=== PATIENT | female | born 1980 | race Caucasian/White ===

== ENCOUNTER → 2016-07-04 | Outpatient (CLI) | payer MEDICARE, OTHER ==
[2016-07-04 13:55] VITALS: BP 136/71; PULSE 90; RESP 18; TEMP 97.8; BMI 68.8
[2016-07-04 16:47] LABS: CH 27.5; CHCM 32.1; EKG EKG PERFORMED; HCT 41.7 % (34.0-46.0); HDW 2.76; HGB 13.2 gm/dL (11.4-16.0); MCH 27.3 pg (25.0-35.0); MCHC 31.6 g/dL (31.0-37.0); MCV 86.3 fL (80.0-100.0); Mean Platelet Volume 7.9; RBC 4.83 m/uL (3.80-5.40); RDW 14.2 % (11.5-15.5); WBC 4.2 k/uL (3.8-10.6)
[2016-07-04 17:18] LABS: ALT 60 U/L (9-52); AST 54 U/L (14-36); Alkaline Phosphatase 111 U/L (38-126); Anion Gap 8 mmol/L; Blood Urea Nitrogen 12 mg/dL (7-17); Calcium 9.3 mg/dL (8.4-10.2); Carbon Dioxide 29 mmol/L (22-30); Chloride 102 mmol/L (98-107); Cholesterol 136 mg/dL (<200); Glucose 107 mg/dL (74-99); HDL Cholesterol 34 mg/dL (40-60); Iron 66 ug/dL (37-170); Non-African American GFR(MDRD) >60 (>60 ml/min/1.73 sqM); Potassium 4.8 mmol/L (3.5-5.1); Sodium 139 mmol/L (137-145); Total Bilirubin 0.4 mg/dL (0.2-1.3); Total Protein 6.7 g/dL (6.3-8.2); Triglycerides 172 mg/dL (<150)
[2016-07-04 17:29] LABS: Total Iron Binding Capacity 315 ug/dL (265-497)
[2016-07-04 18:28] LABS: Vitamin B12 442 pg/mL (239-931)
[2016-07-04 21:26] LABS: Hemoglobin A1C 6.3 % (4.2-6.1)
--- NOTE | 2016-07-22 16:45 | P.PN ---
Progress Note - Text DATE OF CONSULTATION: DATE OF SERVICE: 07/04/2016 CHIEF COMPLAINT: Initial bariatric assessment. HISTORY OF PRESENT ILLNESS: Talha Crawford is a 35-year-old female who presents initially to the bariatric program. At a height of 4 feet 10-3/4 inches, her highest weight was 350 pounds. Her body mass index was 71.4. Today she comes in weighing 337 pounds. Her body mass index is now down to 68.8. Separately, she reports trying medical supervised weight loss as well as [employer], Effie Lorenzo, Weight Watchers, [employer] as well as going to the [facility] and caloric restriction with minimal success. Her lowest memorable weight has been at least at 250 pound. Her personal goal is to get down to 120 pounds. She reports osteoarthritis of the lower back. She also reports osteoarthritis of the bilateral knees. She has difficulty with walking as she has a moderate size pannus which extends below both her knees. She has obstructive sleep apnea for which she uses a CPAP machine. She has a family history of morbid obesity as well as diabetes. Her dietary intake includes having breakfast and bagels in the morning. Her calories are well over 2000 to 3000 calories daily. Her main reason for changing her dietary history including achieving weight loss is for her children who are toddler size. She reports having a previous cholecystectomy and denies any active history of diarrhea, constipation. At present, she is looking into gastrectomy-type procedures between a sleeve and Dat-en-Y gastric bypass, specifically the gastric bypass. PAST MEDICAL HISTORY: 1. Morbid obesity. 2. Obstructive sleep apnea. 3. Osteoarthritis of the lower back. 4. Osteoarthritis of the bilateral knees. 5. Panniculitis. PAST SURGICAL HISTORY: 1. Cholecystectomy. 2. section. MEDICATIONS: 1. Ultram. 2. Augmentin. 3. Elavil. ALLERGIES: Denies. SOCIAL HISTORY: Lifelong nontobacco user. FAMILY HISTORY: Pertinent for morbid obesity. She denies any Crohn's disease or ulcerative colitis. Also has diabetes in her family. REVIEW OF SYSTEMS: CONSTITUTIONAL: [place] body weight of 118 pounds for 4-foot, 10-3/4-inch frame. Highest weight is 350 pounds. Initial body mass index was 71.4. Present body mass index of 68.8. She is 219 pounds overweight. HEENT: Denies any troubles with vision, hearing or dysphagia. ENDOCRINE: No report of diabetes or thyroid disorder. RESPIRATORY: Denies any recent dyspnea on exertion; however, she does have obstructive sleep apnea and uses CPAP machine. CARDIOVASCULAR: No reports of chest pain or heart attack. GASTROINTESTINAL: Denies any gastroesophageal reflux disease. Her gallbladder is removed. MUSCULOSKELETAL: Has osteoarthritis of the lower back with her large size pannus. Also reports bilateral knee osteoarthritis. NEURO: No reports of stroke or seizure disorders. PSYCH: Denies depression or suicidal ideation. HEMATOLOGIC: Denies any easy bruising or bleeding. PHYSICAL EXAM: VITAL SIGNS: 97.8, 90, 18, 136/71, 4 feet 10-3/4 inches, 337 pounds, body mass index of 68.8. GENERAL: Well-developed, pleasant female in no acute distress. HEENT: No scleral icterus. Extraocular movements grossly intact. Moist buccal mucosa. NECK: Supple without lymphadenopathy. CHEST: Nonlabored respirations with equal bilateral excursions. CARDIOVASCULAR: Regular rate and rhythm. ABDOMEN: Protuberant with pannus extending beyond the knees. Size of pannus easily weighs over 70+ pounds. MUSCULOSKELETAL: No clubbing, cyanosis. 1+ bilateral pitting edema. NEURO: No focal or lateralizing signs. Cranial nerves 2 through 12 grossly within normal limits. PSYCH: Appropriate affect. Alert and oriented to person, place, and time. SKIN: Moderate panniculitis with pannus of over 70+ pounds extending beyond the knees. Patient presents with also with round apple shape. Hyperpigmentation noted along the skin fold extended along the medial upper thighs. LABS: Hemoglobin normal at 13.2. Glucose elevated at 107. Hemoglobin A1c is elevated at 6.3. Ferritin elevated at 153. AST elevated at 64. ALT elevated at 60. Triglycerides elevated at 172. Cholesterol normal at 136. HDL low at 34. EKG was performed, results still pending. ASSESSMENT: 1. Morbid obesity due to excess calories. 2. Body mass index initially of 71.4 down and 68.8. 3. Obstructive sleep apnea, moderate. 4. Glucose intolerance and diabetes. 5. Elevated AST, ALT. 6. Fatty liver disease. 7. Hypertriglyceridemia. 8. Osteoarthritis of the lower back. 9. Osteoarthritis of the bilateral knees. 10. Likely food addiction. PLAN: 1. I have gone over all bariatric options between a band, a sleeve including a Dat-en-Y gastric bypass. [place] bariatric surgery surgery collaborative outcomes calculator of anticipated weight loss was reviewed for each procedure. Additionally risk factors or complications were also reviewed. The patient has selected for Dat-en-Y gastric bypass. 2. Given the moderate size of her pannus including panniculitis, I have discussed with her the technical difficulty. I may possibly perform her gastric bypass for which additional weight loss is requested. The patient had agreed to try to achieve at least 60-pound weight loss. Strict medical supervised weight loss including with bariatric dietitian referral was reviewed. 3. Recommend 12-lead EKG as high risk operation. 4. Recommend medical risk assessment. 5. Also recommend a psych assessment as the patient demonstrates potential habits of food addiction as well as food binging disorder. 6. Recommend upper endoscopy as she is looking into gastrectomy-type procedure. Gastritis and hiatal hernia cannot be excluded. 7. On her laboratory work, she has come back as diabetic for which surgical intervention with a gastrectomy-type procedure including weight loss may be of benefit. 8. She does have elevated liver enzymes, which is highly suspicious for fatty liver disease, which will be closely monitored and addressed also with a high protein, low caloric diet. Thank you for this kind consultation.
== END | disposition home or self-care (01) ==
LOC: BARWHC3 13:21
PROVIDERS: ATTEND Surgery Plastic and Reconstructive Surgery
DX: Z01.818 Encounter for other preprocedural examination (principal); E66.01 Morbid (severe) obesity due to excess calories; Z68.44 Body mass index [BMI] 60.0-69.9, adult; G47.33 Obstructive sleep apnea (adult) (pediatric); E74.39 Other disorders of intestinal carbohydrate absorption; E11.9 Type 2 diabetes mellitus without complications; K76.0 Fatty (change of) liver, not elsewhere classified; E78.1 Pure hyperglyceridemia; M47.896 Other spondylosis, lumbar region; M17.0 Bilateral primary osteoarthritis of knee; R79.89 Other specified abnormal findings of blood chemistry
CPT/HCPCS: 84425; 80061; 80053; 82607; 82728; 83036; 82746; 83540; 83550; 84443; 85027; 82306; 97802; 93005; 36415; G0463; 99201

== ENCOUNTER 2016-08-08 08:00 | Day surgery (SDC) | payer MEDICARE, OTHER ==
[2016-08-06 08:45] VITALS: BMI 68.6
--- NOTE | 2016-08-08 07:33 | P.GSHP ---
History of Present Illness H&P Date: 08/08/16 CHIEF COMPLAINT: GERD HISTORY OF PRESENT ILLNESS: The patient is a 36-year-old female who presents reports gastroesophageal reflux disease. Upper endoscopy was offered for further evaluation and management. PAST MEDICAL HISTORY: Please see list. PAST SURGICAL HISTORY: Please see list. MEDICATIONS: Please see list. ALLERGIES: Please see list. SOCIAL HISTORY: No illicit drug use FAMILY HISTORY: No reports of Crohn disease or ulcerative colitis. REVIEW OF ORGAN SYSTEMS: CONSTITUTIONAL: No reports of fevers or chills. GI: Denies any blood in stools or constipation. PHYSICAL EXAM: VITAL SIGNS: Stable GENERAL: Well-developed and pleasant in no acute distress. HEENT: No scleral icterus. Extraocular movements grossly intact. Moist buccal mucosa. NECK: Supple without lymphadenopathy. CHEST: Unlabored respirations. Equal bilateral excursions. CARDIOVASCULAR: Regular rate and rhythm. Distal 2+ pulses. ABDOMEN: Soft, nondistended. MUSCULOSKELETAL: No clubbing, cyanosis, or edema. ASSESSMENT: 1. Gastroesophageal reflux disease PLAN: 1. Recommend proceeding with an upper endoscopy Past Medical History Past Medical History: GERD/Reflux, Musculoskeletal Disorder, Osteoarthritis (OA) , Seizure Disorder Additional Past Medical History / Comment(s): hx. of seizures as a child-none in years, chronic back & joint pain, currently being treated for UTI History of Any Multi-Drug Resistant Organisms: None Reported Past Surgical History: Section, Cholecystectomy, Tubal Ligation Past Anesthesia/Blood Transfusion Reactions: No Reported Reaction Past Psychological History: No Psychological Hx Reported Smoking Status: Never smoker Past Alcohol Use History: None Reported Past Drug Use History: None Reported - Past Family History Mother Family Medical History: No Reported History Medications and Allergies Home Medications Medication Instructions Recorded Confirmed Type Amitriptyline HCl [Elavil] 25 mg PO HS 07/03/16 08/06/16 History traMADol HCL [Ultram] 50 mg PO QID 07/03/16 08/06/16 History Diclofenac Sodium [Voltaren] 75 mg PO BID 08/06/16 08/06/16 History Nitrofurantoin Monohyd/M-Cryst 100 mg PO Q12HR 08/06/16 08/06/16 History [Macrobid] Allergies Allergy/AdvReac Type Severity Reaction Status Date / Time No Known Allergies Allergy Verified 08/06/16 08:42
[~2016-08-08 08:00] MED LIST: LACTATED RINGERS 1,000 ML IV SCH; LIDOCAINE 1% 20 ML VIAL (10MG/ML) FOR IV START INTRADERMA PRN
[2016-08-08 08:23] VITALS: RESP 20; TEMP 98.6
[2016-08-08] MEDS ORDERED: PROPOFOL 10 MG/ML 20 ML VIAL IV ONE (08:34)
--- NOTE | 2016-08-08 08:49 | P.PCN ---
Date of Procedure: 08/08/16 Description of Procedure: PREOPERATIVE DIAGNOSIS: Gastroesophageal reflux disease. Morbid obesity. Body mass index 68.7. Obstructive sleep apnea. POSTOPERATIVE DIAGNOSIS: Gastroesophageal reflux disease. Morbid obesity. Body mass index 68.7. Obstructive sleep apnea. Diaphragmatic hiatal hernia. Superficial chronic gastritis. OPERATION: Esophagogastroduodenoscopy with biopsies along antrum. SURGEON: Melanie Presley MD ANESTHESIA: MAC. INDICATIONS: The patient is a 36-year-old female who presents with a history of reflux disease. Benefits and risks of the procedure were described. Informed consent was obtained. DESCRIPTION: The patient was brought into the endoscopy suite and laid in the left lateral decubitus position. An Olympus gastroscope was passed along the posterior oropharynx down to the distal esophagus where the squamocolumnar junction was encountered at 35 cm from the incisors. The stomach was entered and moderate bile reflux was found. Additional findings are listed below. Biopsies with cold forceps were obtained of the antrum. The first through third portion of the duodenum was examined and unremarkable. Retroflexion of the scope confirmed Hill grade 3 lower esophageal valve. The squamocolumnar junction demostrated LA grade B erosive esophagitis. The stomach was desufflated. The patient tolerated the procedure well. FINDINGS: Squamocolumnar junction 35 cm from the incisors. Diaphragmatic hiatus at 37 cm from the incisors. Hiatal hernia, 2 cm, sliding type. Hill grade 3 lower esophageal valve. LA grade B erosive esophagitis. No active duodenitis. Chronic gastritis. RECOMMENDATIONS: Further recommendations pending results of pathology report. Upper endoscopy as needed.
[2016-08-08 09:11] VITALS: BP 152/90; PULSE 89
== END 2016-08-08 09:29 | disposition home or self-care (01) ==
LOC: ORWHC2ENDO 08:00
PROVIDERS: ATTEND Surgery Plastic and Reconstructive Surgery
DX: K22.10 Ulcer of esophagus without bleeding (principal); K29.50 Unspecified chronic gastritis without bleeding; K21.9 Gastro-esophageal reflux disease without esophagitis; K44.9 Diaphragmatic hernia without obstruction or gangrene; M19.90 Unspecified osteoarthritis, unspecified site; E66.01 Morbid (severe) obesity due to excess calories; Z68.44 Body mass index [BMI] 60.0-69.9, adult; G47.33 Obstructive sleep apnea (adult) (pediatric); Z79.891 Long term (current) use of opiate analgesic; Z79.899 Other long term (current) drug therapy
CPT/HCPCS: 81025; 88305; 88342; 43239; J2704; 97803; 99211

== ENCOUNTER → 2016-08-08 | Outpatient (CLI) | payer MEDICARE, OTHER ==
[2016-08-08 15:00] VITALS: BP 138/100; PULSE 107; RESP 14; TEMP 97.9; BMI 68.1
--- NOTE | 2016-09-16 19:56 | P.PN ---
Progress Note - Text DATE OF SERVICE: 08/08/2016 CHIEF COMPLAINT: Follow up bariatric assessment. HISTORY OF PRESENT ILLNESS: Talha Crawford is a 36-year-old female who initially presented to the program in June 2006. She reports a height of 4 feet 10-3/4 inches, her highest weight was 350 pounds. Today she comes in weighing 334 pounds. She lost 3 pounds in one month. She has completed an upper endoscopy earlier. She reports troubles with her weight whereby she is accompanied by her roommate who also confirms that Talha tends to eat large portions of food, particularly fast foods, including moderate amount of soda. Now she presents for further evaluation and management. At her height of 4 feet 10-3/4 inches, her ideal body weight is one her ideal body weight is 118 pounds. She is 216 pounds overweight. Body mass index reduced from 74.4 down to 68.1. Her total maintained weight loss from her highest is 16.2 pounds. PAST MEDICAL HISTORY: 1. Morbid obesity. 2. Obstructive sleep apnea. 3. Osteoarthritis of the lower back. 4. Osteoarthritis of the bilateral knees. 5. Panniculitis. PAST SURGICAL HISTORY: 1. Cholecystectomy. 2. section. 3. Upper endoscopy. MEDICATIONS: 1. Tramadol. 2. Vitamin D. 3. Elavil. ALLERGIES: Denies. SOCIAL HISTORY: Lifelong nontobacco user. FAMILY HISTORY: Pertinent for morbid obesity. She denies any Crohn's disease or ulcerative colitis. Also has diabetes in her family. REVIEW OF SYSTEMS: GASTROINTESTINAL: Upper endoscopy consistent with gastroesophageal reflux disease including diaphragmatic hiatal hernia. CONSTITUTIONAL: At her height of 4 feet 10-3/4 inches, her ideal body weight is one her ideal body weight is 118 pounds. She is 216 pounds overweight. Body mass index reduced from 74.4 down to 68.1. Her total maintained weight loss from her highest is 16.2 pounds. HEENT: Denies any troubles with vision, hearing or dysphagia. ENDOCRINE: No report of diabetes or thyroid disorder. RESPIRATORY: Denies any recent dyspnea on exertion; however, she does have obstructive sleep apnea and uses CPAP machine. CARDIOVASCULAR: No reports of chest pain or heart attack. MUSCULOSKELETAL: Has osteoarthritis of the lower back with her large size pannus. Also reports bilateral knee osteoarthritis. NEURO: No reports of stroke or seizure disorders. PSYCH: Denies depression or suicidal ideation. HEMATOLOGIC: Denies any easy bruising or bleeding. PHYSICAL EXAM: VITAL SIGNS: 97.9, 107, 14, 138/100, 334 pounds, body mass index of 66.1. ABDOMEN: Protuberant, soft. Pannus extends over bilateral knees. Findings consistent with panniculitis. GENERAL: Well-developed, pleasant female in no acute distress. HEENT: No scleral icterus. Extraocular movements grossly intact. Moist buccal mucosa. NECK: Supple without lymphadenopathy. CHEST: Nonlabored respirations with equal bilateral excursions. CARDIOVASCULAR: Regular rate and rhythm. MUSCULOSKELETAL: No clubbing, cyanosis. 1+ bilateral pitting edema. NEURO: No focal or lateralizing signs. Cranial nerves 2 through 12 grossly within normal limits. PSYCH: Appropriate affect. Alert and oriented to person, place, and time. SKIN: Moderate panniculitis with pannus of over 70+ pounds extending beyond the knees. Hyperpigmentation noted along the skin fold extended along the medial upper thighs. LABS: Bariatric metabolic panel was reviewed. Glucose elevated at 107. Hemoglobin A1c elevated at 6.3. Ferritin elevated at 153. AST elevated at 54. ALT elevated at 60. Triglycerides elevated at 172. HDL low at 34. Vitamin D is low at 11.8. EKG demonstrates normal sinus rhythm. STUDIES: Upper endoscopy consistent with diaphragmatic hiatal hernia with grade 4 lower esophageal valve. ASSESSMENT: 1. Morbid obesity due to excess calories. 2. Body mass index initially of 71.4 down and 68.1. 3. Obstructive sleep apnea, moderate. 4. Glucose intolerance and diabetes. 5. Elevated AST, ALT. 6. Fatty liver disease. 7. Hypertriglyceridemia. 8. Osteoarthritis of the lower back. 9. Osteoarthritis of the bilateral knees. 10. Likely food addiction. 11. Panniculitis. 12. Diabetes type 2. 13. Hypertension. 14. Osteoarthritis bilateral hips. 15. Gastroesophageal reflux disease. 16. Diaphragmatic hiatal hernia. 17. Vitamin D deficiency. PLAN: 1. She has completed a bariatric metabolic panel for which vitamin D deficiency has been identified. Vitamin D supplement will be given. 2. Upper endoscopy was consistent with gastroesophageal reflux disease and also has been prescribed omeprazole. 3. She has panniculitis for which nystatin powder has been written on her behalf. 4. She also has findings consistent with diabetes type 2, recommend treatment with metformin 500 mg at least b.i.d. 5. I have gone over her ideal weight and body mass index. Most importantly, a commitment to her weight loss was reviewed. I have asked her to lose at least 50 pounds in the course of 6 months. At this point she has lost 3 pounds. 6. Recommend coordinating outpatient evaluation with the bariatric dietitian. 7. I have recommended follow-up at least on a monthly basis to address her weight loss.
== END | disposition home or self-care (01) ==
LOC: BARWHC3 14:13
PROVIDERS: ATTEND Surgery Plastic and Reconstructive Surgery
DX: Z71.2 Person consulting for explanation of examination or test findings (principal); E66.01 Morbid (severe) obesity due to excess calories; Z68.41 Body mass index [BMI] 40.0-44.9, adult
CPT/HCPCS: G0463; G0270; 97803; 99211

== ENCOUNTER → 2016-09-05 | Outpatient (CLI) | payer MEDICARE, OTHER ==
[2016-09-05 16:32] VITALS: BP 141/64; PULSE 93; TEMP 97.4; BMI 69.6
--- NOTE | 2016-10-11 04:38 | P.PN ---
Progress Note - Text DATE OF SERVICE: 09/05/2016. CHIEF COMPLAINT: Bariatric assessment. HISTORY OF PRESENT ILLNESS: Talha Crawford is a 36-year-old female who comes in with obesity. At her height of 4 feet 10 inches frame 241 pounds. She is 223 pounds overweight. [place] body weight is 118 pounds. Highest weight has been 350 pounds. She is maintained weight loss of 9 pounds. Since her last visit over a month ago she has actually gained 7 pounds. Body mass index is reduced from 71.4 down to 69.6. She has troubles with portion control. She reports lower back pain for which she takes pain medications. She also reports bilateral knee pain. PAST MEDICAL HISTORY: 1. Morbid obesity. 2. Obstructive sleep apnea. 3. Osteoarthritis of the lower back. 4. Osteoarthritis of the bilateral knees. 5. Panniculitis. PAST SURGICAL HISTORY: 1. Cholecystectomy. 2. section. 3. Upper endoscopy. MEDICATIONS: 1. Tramadol. 2. Vitamin D. 3. Elavil. ALLERGIES: Denies. SOCIAL HISTORY: Lifelong nontobacco user. FAMILY HISTORY: Pertinent for morbid obesity. She denies any Crohn's disease or ulcerative colitis. Also has diabetes in her family. REVIEW OF SYSTEMS: CONSTITUTIONAL: [place] body is 118 pound. Highest weight 350 pounds. Weight gain of 7 pounds in one month. Total maintained weight loss of only 9 pounds. Body mass index reduced from 71.4 down to 69.6. MUSCULOSKELETAL: Severe lower back pain including bilateral knee pain. GASTROINTESTINAL: Upper endoscopy consistent with gastroesophageal reflux disease including diaphragmatic hiatal hernia. HEENT: Denies any troubles with vision, hearing or dysphagia. ENDOCRINE: No report of diabetes or thyroid disorder. RESPIRATORY: Denies any recent dyspnea on exertion; however, she does have obstructive sleep apnea and uses CPAP machine. CARDIOVASCULAR: No reports of chest pain or heart attack. NEURO: No reports of stroke or seizure disorders. PSYCH: Denies depression or suicidal ideation. HEMATOLOGIC: Denies any easy bruising or bleeding. PHYSICAL EXAM: VITAL SIGNS: 97.4, 93 141/64, 12, 4 foot 10-3/4 inch frame, 341 pounds. Body mass index 69.6. ABDOMEN: Protuberant, soft. Pannus extends over bilateral knees. Findings consistent with panniculitis. Nontender. GENERAL: Well-developed, pleasant female in no acute distress. HEENT: No scleral icterus. Extraocular movements grossly intact. Moist buccal mucosa. NECK: Supple without lymphadenopathy. CHEST: Nonlabored respirations with equal bilateral excursions. CARDIOVASCULAR: Regular rate and rhythm. MUSCULOSKELETAL: No clubbing, cyanosis. 1+ bilateral pitting edema. NEURO: No focal or lateralizing signs. Cranial nerves 2 through 12 grossly within normal limits. PSYCH: Appropriate affect. Alert and oriented to person, place, and time. SKIN: Moderate panniculitis with pannus of over 70+ pounds extending beyond the knees. Hyperpigmentation noted along the skin fold extended along the medial upper thighs. ASSESSMENT: 1. Morbid obesity due to excess calories. 2. Body mass index reduced from 71.4 down to 69.6. 3. Obstructive sleep apnea, moderate. 4. Glucose intolerance and diabetes. 5. Elevated AST, ALT. 6. Fatty liver disease. 7. Hypertriglyceridemia. 8. Osteoarthritis of the lower back. 9. Osteoarthritis of the bilateral knees. 10. Likely food addiction. 11. Panniculitis. 12. Diabetes type 2. 13. Hypertension. 14. Osteoarthritis bilateral hips. 15. Gastroesophageal reflux disease. 16. Diaphragmatic hiatal hernia. 17. Vitamin D deficiency. 18. Dietary surveillance and counseling. PLAN: 1. I recommend referral to physical therapist to help with the lower back, including bilateral knee pain for evaluation and treatment. 2. She comes in requesting narcotics; however I recommended evaluation with pain specialist. 3. I personally contacted her primary care provider's office who was not available at the time. I recommend completion of medical risk assessment. 4. As she is seeking bariatric procedure, particularly Dat-en-Y gastric bypass, she has moderate central adiposity which approximately 50 pound weight loss would be beneficial. She has been placed on strict dietary plan to help with education. 5. I have recommended follow-up in one month. Incidentally, she reports going on vacation at that time. ADDENDUM: Result of her upper endoscopy consistent with diaphragmatic hiatal hernia. No evidence of H. pylori gastritis was identified. Hill grade 3 lower esophageal valve with erosive esophagitis grade B was identified. Labs are also reviewed consistent with vitamin D deficiency and elevated hemoglobin A1c of 6.3% consistent with diabetes. AST and ALT were also elevated. Vitamin D prescriptions written on her behalf. Additionally, omeprazole is also written her behalf. She also has panniculitis and Nystatin powders were written on her behalf.
== END | disposition home or self-care (01) ==
LOC: BARWHC3 14:48
PROVIDERS: ATTEND Surgery Plastic and Reconstructive Surgery
DX: Z01.818 Encounter for other preprocedural examination (principal); E66.01 Morbid (severe) obesity due to excess calories; Z68.44 Body mass index [BMI] 60.0-69.9, adult; Z71.3 Dietary counseling and surveillance; G47.33 Obstructive sleep apnea (adult) (pediatric); E74.39 Other disorders of intestinal carbohydrate absorption; E11.9 Type 2 diabetes mellitus without complications; R79.89 Other specified abnormal findings of blood chemistry; K76.0 Fatty (change of) liver, not elsewhere classified; E78.1 Pure hyperglyceridemia; M47.896 Other spondylosis, lumbar region; M17.0 Bilateral primary osteoarthritis of knee; M54.15 Radiculopathy, thoracolumbar region; M79.3 Panniculitis, unspecified; I10 Essential (primary) hypertension; M16.0 Bilateral primary osteoarthritis of hip; K21.9 Gastro-esophageal reflux disease without esophagitis; K44.9 Diaphragmatic hernia without obstruction or gangrene; E55.9 Vitamin D deficiency, unspecified; Z79.899 Other long term (current) drug therapy
CPT/HCPCS: 97803; G0463; 99211

== ENCOUNTER → 2016-11-01 | Outpatient (CLI) | payer MEDICARE, OTHER ==
[2016-11-01 12:36] VITALS: BMI 70.5
[2016-11-01 12:51] VITALS: BP 143/88; PULSE 105; RESP 14; TEMP 97.5
--- NOTE | 2016-12-21 11:31 | P.PN ---
Progress Note - Text DATE OF SERVICE: 11/01/2016 CHIEF COMPLAINT: Bariatric assessment. HISTORY OF PRESENT ILLNESS: Talha Crawford is a 36-year-old female with history of morbid obesity. At her height of 4 feet 10-3/4 inches, her ideal body weight is 118 pounds. Her highest weight was 350 pounds. Today she comes weighing 341 pounds. She has only lost 5 pounds in 2 months. Percent excess weight loss is 4%. Body mass index is reduced from 71.4 down to 69.6. She is 223 pounds overweight. She is undergoing medical supervised weight loss, however, she has had difficulty with maintaining her dietary portions. She often eats [employer]. She went on vacation and had high caloric foods. She had agreed to lose at least 50 pounds prior to her procedure given the severity of her central adiposity. She has developed osteoarthritis of the lower back. She also has developed osteoarthritis of bilateral knees. She has insulin resistance and findings consistent with diabetes type 2. Now she presents for further evaluation and management. PAST MEDICAL HISTORY: 1. Morbid obesity. 2. Obstructive sleep apnea. 3. Osteoarthritis of the lower back. 4. Osteoarthritis of the bilateral knees. 5. Panniculitis. 6. Diabetes type 2. PAST SURGICAL HISTORY: 1. Cholecystectomy. 2. section. 3. Upper endoscopy. MEDICATIONS: 1. Tramadol. 2. Vitamin D. 3. Elavil. ALLERGIES: Denies. SOCIAL HISTORY: Lifelong nontobacco user. FAMILY HISTORY: Pertinent for morbid obesity. She denies any Crohn's disease or ulcerative colitis. Also has diabetes in her family. REVIEW OF SYSTEMS: CONSTITUTIONAL: Total weight loss of 9 pounds in 3 months. Body mass index reduced from 71.4 down and 69.6. She is 223 pounds overweight. [place] body is 118 pound. Highest weight 350 pounds. MUSCULOSKELETAL: Severe lower back pain and bilateral knee pain. GASTROINTESTINAL: Upper endoscopy consistent with gastroesophageal reflux disease including diaphragmatic hiatal hernia. HEENT: Denies any troubles with vision, hearing or dysphagia. ENDOCRINE: No report of diabetes or thyroid disorder. RESPIRATORY: Denies any recent dyspnea on exertion; however, she does have obstructive sleep apnea and uses CPAP machine. CARDIOVASCULAR: No reports of chest pain or heart attack. NEURO: No reports of stroke or seizure disorders. PSYCH: Denies depression or suicidal ideation. HEMATOLOGIC: Denies any easy bruising or bleeding. PHYSICAL EXAM: VITAL SIGNS: 97.5, 105, 14, 143/88, 4 feet, 10-3/4 inch, 341 pounds. Body mass index of 69.6. GENERAL: Well-developed female in no acute distress. CARDIOVASCULAR: Tachycardic. ABDOMEN: Soft, nontender, nondistended. LABS: Previous bariatric metabolic panel was reviewed and demonstrating a glucose of 107. Hemoglobin A1c was elevated at 6.3%. Ferritin was elevated at 153. AST and ALT were both elevated. Triglycerides were elevated 172. HDL was low at 34. Vitamin D was low at 11.8. EKG demonstrated normal sinus rhythm. ASSESSMENT: 1. Morbid obesity due to excess calories. 2. Body mass index reduced from 71.4 down to 69.6. 3. Obstructive sleep apnea, moderate. 4. Glucose intolerance and diabetes. 5. Elevated AST, ALT. 6. Fatty liver disease. 7. Hypertriglyceridemia. 8. Osteoarthritis of the lower back. 9. Osteoarthritis of the bilateral knees. 10. Likely food addiction. 11. Panniculitis. 12. Diabetes type 2. 13. Hypertension. 14. Osteoarthritis bilateral hips. 15. Gastroesophageal reflux disease. 16. Diaphragmatic hiatal hernia. 17. Vitamin D deficiency. 18. Dietary surveillance and counseling. PLAN: 1. Recommend continued bariatric dietitian evaluation. 2. As she is tachycardic, recommend cardiac risk assessment. 3. Recommend referral to physical therapist as she reports severe worsening lower back pain including bilateral knee pain. 4. For her chronic pain, referral to pain specialist. 5. She has agreed to a goal of at least weight loss of 50 pounds prior to surgical intervention including demonstrating dietary compliance. 6. Follow up with food and exercise journal.
== END | disposition home or self-care (01) ==
LOC: BARWHC3 10:54
PROVIDERS: ATTEND Surgery Plastic and Reconstructive Surgery
DX: Z71.3 Dietary counseling and surveillance (principal); E66.01 Morbid (severe) obesity due to excess calories; Z68.45 Body mass index [BMI] 70 or greater, adult
CPT/HCPCS: 97803; G0463; 99211

== ENCOUNTER → 2016-11-22 | Outpatient (CLI) | payer MEDICARE, OTHER ==
[2016-11-22 11:09] VITALS: BP 121/78; PULSE 86; RESP 20; TEMP 97.7; BMI 69.7
--- NOTE | 2016-12-22 18:22 | P.PN ---
Progress Note - Text DATE OF SERVICE: 11/22/2016 CHIEF COMPLAINT: Bariatric assessment. HISTORY OF PRESENT ILLNESS: Talha Crawford is a 36-year-old female with history of morbid obesity. At her height of 4 feet 10-3/4 inches, her ideal body weight is 118 pounds. Her highest weight was 350 pounds. Today she comes weighing 344 pounds. She has gained 3 pounds. Body mass index is reduced from 71.4 down to 70.3. She is 226 pounds overweight. Despite initial discussion of goal weight loss of at least 50 pounds, she comes in still eating moderate high caloric foods. She still continues to eat processed foods. She has not brought in her dietary journal. She demonstrates difficulty with dietary compliance. As result of her morbid obesity, she has developed osteoarthritis of the lower back, osteoarthritis of bilateral knees and diabetes type 2. Now she presents for further evaluation and management. She is seeking gastric bypass. PAST MEDICAL HISTORY: 1. Morbid obesity. 2. Obstructive sleep apnea. 3. Osteoarthritis of the lower back. 4. Osteoarthritis of the bilateral knees. 5. Panniculitis. 6. Diabetes type 2. PAST SURGICAL HISTORY: 1. Cholecystectomy. 2. section. 3. Upper endoscopy. MEDICATIONS: 1. Tramadol. 2. Vitamin D. 3. Elavil. ALLERGIES: Denies. SOCIAL HISTORY: Lifelong nontobacco user. FAMILY HISTORY: Pertinent for morbid obesity. She denies any Crohn's disease or ulcerative colitis. Also has diabetes in her family. REVIEW OF SYSTEMS: CONSTITUTIONAL: At her height of 4 feet 10-3/4 inches, her ideal body weight is 118 pounds. Her highest weight was 350 pounds. Today she comes weighing 344 pounds. She has gained 3 pounds. Body mass index is reduced from 71.4 down to 70.3. She is 226 pounds overweight. MUSCULOSKELETAL: Severe lower back pain and bilateral knee pain. GASTROINTESTINAL: Upper endoscopy consistent with gastroesophageal reflux disease including diaphragmatic hiatal hernia. HEENT: Denies any troubles with vision, hearing or dysphagia. ENDOCRINE: No report of thyroid disorder. She has now developed diabetes type 2. RESPIRATORY: Denies any recent dyspnea on exertion; however, she does have obstructive sleep apnea and uses CPAP machine. CARDIOVASCULAR: No reports of chest pain or heart attack. NEURO: No reports of stroke or seizure disorders. PSYCH: Denies depression or suicidal ideation. HEMATOLOGIC: Denies any easy bruising or bleeding. PHYSICAL EXAM: VITAL SIGNS: 4 feet, 10-3/4 inch, 344 pounds. Body mass index of 70.3. Vital Signs Temp 97.7 F 11/22/16 10:48 Pulse 86 11/22/16 10:48 Resp 20 11/22/16 10:48 BP 121/78 11/22/16 10:48 Pulse Ox GENERAL: Well developed and in no acute distress. Pleasant. HEENT: No sclera icterus. Extraocular movements grossly intact. Moist buccal mucosa. Head is atraumatic, normocephalic. Hears conversational speech. No nasal drainage. NECK: Supple without lymphadenopathy. No JV distention. CHEST: Non-labored respirations and equal bilateral excursions. CARDIOVASCULAR: Regular rate and rhythm. Palpable 2+ radial pulses. ABDOMEN: Soft, nontender. Nondistended. MUSCULOSKELETAL: No clubbing, cyanosis or edema. NEUROLOGIC: No focal or lateralizing signs. PSYCH: Appropriate affect. Alert and oriented to person, place and time. ASSESSMENT: 1. Morbid obesity due to excess calories. 2. Body mass index reduced from 71.4 down to 70.3. 3. Obstructive sleep apnea, moderate. 4. Diabetes tape 2. 5. Elevated AST, ALT. 6. Fatty liver disease. 7. Hypertriglyceridemia. 8. Osteoarthritis of the lower back. 9. Osteoarthritis of the bilateral knees. 10. Dietary surveillance and counseling. 11. Panniculitis. 12. Vitamin D deficiency. 13. Hypertension. 14. Osteoarthritis bilateral hips. 15. Gastroesophageal reflux disease. 16. Diaphragmatic hiatal hernia. PLAN: 1. Recommend dietary surveillance and counseling however with bariatric dietitian. 2. Goal weight loss of 50 pounds down to 300 pounds for compliance. 3. Recommend food journal and monthly follow-up visits. 4. She has history of chronic pain including of the bilateral knees and hips. Recommend referral to pain center.
== END | disposition home or self-care (01) ==
LOC: BARWHC3 10:18
PROVIDERS: ATTEND Surgery Plastic and Reconstructive Surgery
DX: E66.01 Morbid (severe) obesity due to excess calories (principal); Z68.45 Body mass index [BMI] 70 or greater, adult; Z71.3 Dietary counseling and surveillance; M47.896 Other spondylosis, lumbar region; M17.0 Bilateral primary osteoarthritis of knee; G47.33 Obstructive sleep apnea (adult) (pediatric); E11.9 Type 2 diabetes mellitus without complications; M79.3 Panniculitis, unspecified; K76.0 Fatty (change of) liver, not elsewhere classified; E78.1 Pure hyperglyceridemia; E55.9 Vitamin D deficiency, unspecified; I10 Essential (primary) hypertension; K21.9 Gastro-esophageal reflux disease without esophagitis; K44.9 Diaphragmatic hernia without obstruction or gangrene
CPT/HCPCS: 97803; G0463; 99211

== ENCOUNTER → 2017-01-10 | Outpatient (CLI) | payer MEDICARE, OTHER ==
[2017-01-10 12:27] VITALS: BP 142/83; PULSE 91; RESP 16; TEMP 96.8; BMI 69.1
--- NOTE | 2017-02-03 12:52 | P.PN ---
Progress Note - Text DATE OF SERVICE: 01/10/2017 CHIEF COMPLAINT: Bariatric assessment. HISTORY OF PRESENT ILLNESS: Talha Crawford is a 36-year-old female with history of morbid obesity. She initially presented to the bariatric center in June 2016. At her height of 4 feet 10-3/4 inches, her ideal body weight is 118 pounds. Her highest weight was 350 pounds. Today she comes weighing 339 pounds. She has lost 6 pounds in over 1 month. Body mass index is reduced from 71.4 down to 69.1. She is 221 pounds overweight. She comes in for evaluation for a gastric bypass. PAST MEDICAL HISTORY: 1. Morbid obesity. 2. Obstructive sleep apnea. 3. Osteoarthritis of the lower back. 4. Osteoarthritis of the bilateral knees. 5. Panniculitis. 6. Diabetes type 2. PAST SURGICAL HISTORY: 1. Cholecystectomy. 2. section. 3. Upper endoscopy. MEDICATIONS: 1. Tramadol. 2. Vitamin D. 3. Elavil. ALLERGIES: Denies. SOCIAL HISTORY: Lifelong nontobacco user. FAMILY HISTORY: Pertinent for morbid obesity. She denies any Crohn's disease or ulcerative colitis. Also has diabetes in her family. REVIEW OF SYSTEMS: CONSTITUTIONAL: At her height of 4 feet 10-3/4 inches, her ideal body weight is 118 pounds. Her highest weight was 350 pounds. Today she comes weighing 339 pounds. She has lost 6 pounds. Body mass index is reduced from 71.4 down to 69.1. She is 221 pounds overweight. MUSCULOSKELETAL: Severe lower back pain and bilateral knee pain. GASTROINTESTINAL: Upper endoscopy consistent with gastroesophageal reflux disease including diaphragmatic hiatal hernia. HEENT: Denies any troubles with vision, hearing or dysphagia. ENDOCRINE: No report of thyroid disorder. She has now developed diabetes type 2. RESPIRATORY: Denies any recent dyspnea on exertion; however, she does have obstructive sleep apnea and uses CPAP machine. CARDIOVASCULAR: No reports of chest pain or heart attack. NEURO: No reports of stroke or seizure disorders. PSYCH: Denies depression or suicidal ideation. HEMATOLOGIC: Denies any easy bruising or bleeding. PHYSICAL EXAM: VITAL SIGNS: 4 feet, 10-3/4 inch, 329 pounds. Body mass index of 69.1. Vital Signs 01/10/17 12:23 Temperature 96.8 F L Pulse Rate 91 Respiratory 16 Rate Blood Pressure 142/83 GENERAL: Well developed and in no acute distress. Pleasant. HEENT: No sclera icterus. Extraocular movements grossly intact. Moist buccal mucosa. Head is atraumatic, normocephalic. Hears conversational speech. No nasal drainage. NECK: Supple without lymphadenopathy. No JV distention. CHEST: Non-labored respirations and equal bilateral excursions. CARDIOVASCULAR: Regular rate and rhythm. Palpable 2+ radial pulses. ABDOMEN: Soft, nontender. Nondistended. MUSCULOSKELETAL: No clubbing, cyanosis or edema. NEUROLOGIC: No focal or lateralizing signs. PSYCH: Appropriate affect. Alert and oriented to person, place and time. SKIN: Well-perfused. Good skin turgor. LABS: Reviewed. ASSESSMENT: 1. Morbid obesity due to excess calories. 2. Body mass index reduced from 71.4 down to 69.1. 3. Obstructive sleep apnea, moderate. 4. Diabetes type 2. 5. Elevated AST, ALT. 6. Fatty liver disease. 7. Hypertriglyceridemia. 8. Osteoarthritis of the lower back. 9. Osteoarthritis of the bilateral knees. 10. Dietary surveillance and counseling. 11. Panniculitis. 12. Vitamin D deficiency. 13. Hypertension. 14. Osteoarthritis bilateral hips. 15. Gastroesophageal reflux disease. 16. Diaphragmatic hiatal hernia. PLAN: 1. For the patient's size and body habitus, recommend a robotic-assisted laparoscopic Dat-en-Y gastric bypass. 2. A second generation bariatric consent form was reviewed in detail including bleeding, infection, leaks, nutritional deficiencies, intra-abdominal adhesions , etc. 3. Inpatient hospitalization at least 2 nights. 4. DVT prophylaxis. 5. Antibiotic prophylaxis. 6. Recommend more than 2 week high-protein low caloric diet. 7. Recommend completion of bariatric metabolic profile.
== END | disposition home or self-care (01) ==
LOC: BARWHC3 12:14
PROVIDERS: ATTEND Surgery Plastic and Reconstructive Surgery
DX: Z48.815 Encounter for surgical aftercare following surgery on the digestive system (principal); E66.01 Morbid (severe) obesity due to excess calories; G47.33 Obstructive sleep apnea (adult) (pediatric); E78.00 Pure hypercholesterolemia, unspecified; M47.816 Spondylosis without myelopathy or radiculopathy, lumbar region; M17.0 Bilateral primary osteoarthritis of knee; E55.9 Vitamin D deficiency, unspecified; I10 Essential (primary) hypertension; M16.0 Bilateral primary osteoarthritis of hip; K21.9 Gastro-esophageal reflux disease without esophagitis; Z68.44 Body mass index [BMI] 60.0-69.9, adult; E11.9 Type 2 diabetes mellitus without complications; K76.0 Fatty (change of) liver, not elsewhere classified; M79.3 Panniculitis, unspecified; K44.9 Diaphragmatic hernia without obstruction or gangrene; Z79.899 Other long term (current) drug therapy; Z98.84 Bariatric surgery status
CPT/HCPCS: 99211

== ENCOUNTER → 2017-01-28 | Outpatient (CLI) | payer MEDICARE, OTHER ==
[2017-01-28 14:43] VITALS: BMI 68.4
== END | disposition home or self-care (01) ==
LOC: BARWHC3 08:45
PROVIDERS: ATTEND Surgery Plastic and Reconstructive Surgery
DX: E66.01 Morbid (severe) obesity due to excess calories (principal)
CPT/HCPCS: 97804

== ENCOUNTER → 2017-02-27 | Outpatient (CLI) | payer MEDICARE, OTHER ==
[2017-02-27 18:50] LABS: Basophils % (A) 0 %; CH 28.4; CHCM 33.2; Eosinophils # (A) 0.1 k/uL (0-0.7); Eosinophils % (A) 1 %; HCT 46.7 % (34.0-46.0); HDW 2.77; HGB 14.8 gm/dL (11.4-16.0); Luc # (Auto) 0.13; Luc % (Auto) 2; Lymphocytes # (A) 1.5 k/uL (1.0-4.8); Lymphocytes % (A) 18 %; MCH 27.2 pg (25.0-35.0); MCHC 31.7 g/dL (31.0-37.0); MCV 85.8 fL (80.0-100.0); Mean Platelet Volume 8.2; Monocytes # (A) 0.4 k/uL (0-1.0); Monocytes % (A) 4 %; Neutrophils # (A) 6.3 k/uL (1.3-7.7); Neutrophils % (A) 76 %; RBC 5.44 m/uL (3.80-5.40); RDW 15.8 % (11.5-15.5); WBC 8.3 k/uL (3.8-10.6); WBC (Perox) 8.42
[2017-02-27 19:16] LABS: ALT 57 U/L (9-52); AST 36 U/L (14-36); Alkaline Phosphatase 107 U/L (38-126); Anion Gap 12 mmol/L; Blood Urea Nitrogen 20 mg/dL (7-17); Calcium 9.8 mg/dL (8.4-10.2); Carbon Dioxide 25 mmol/L (22-30); Chloride 102 mmol/L (98-107); Glucose 116 mg/dL (74-99); Non-African American GFR(MDRD) >60 (>60 ml/min/1.73 sqM); Potassium 4.1 mmol/L (3.5-5.1); Sodium 139 mmol/L (137-145); Total Bilirubin 0.3 mg/dL (0.2-1.3); Total Protein 7.2 g/dL (6.3-8.2)
== END | disposition home or self-care (01) ==
LOC: LABPAT 17:05
PROVIDERS: ATTEND Surgery Plastic and Reconstructive Surgery
DX: Z01.812 Encounter for preprocedural laboratory examination (principal)
CPT/HCPCS: 36415; 80053; 85025

== ENCOUNTER 2017-03-07 11:05 | Inpatient (IN) | payer MEDICARE, OTHER ==
--- NOTE | 2017-03-07 07:22 | P.GSHP ---
History of Present Illness H&P Date: 03/07/17 DATE OF SERVICE: 03/07/2017 CHIEF COMPLAINT: Morbid obesity. HISTORY OF PRESENT ILLNESS: Talha Crawford is a 36-year-old female with history of morbid obesity. She initially presented to the bariatric center in June 2016. At her height of 4 feet 10-3/4 inches, her ideal body weight is 118 pounds. Her highest weight was 350 pounds. She has developed comorbidities including diabetes type 2 as well as obstructive sleep apnea and osteoarthritis of the lower back, knees and severe panniculitis. Body mass index is reduced from 71.4 down to 69.1. She is 221 pounds overweight. She has completed preoperative dietary education including fully educated on all surgical options for which she presents today. She comes in for a gastric bypass. PAST MEDICAL HISTORY: 1. Morbid obesity. 2. Obstructive sleep apnea. 3. Osteoarthritis of the lower back. 4. Osteoarthritis of the bilateral knees. 5. Panniculitis. 6. Diabetes type 2. PAST SURGICAL HISTORY: 1. Cholecystectomy. 2. section. 3. Upper endoscopy. MEDICATIONS: 1. Tramadol. 2. Vitamin D. 3. Elavil. ALLERGIES: Denies. SOCIAL HISTORY: Lifelong nontobacco user. FAMILY HISTORY: Pertinent for morbid obesity. She denies any Crohn's disease or ulcerative colitis. Also has diabetes in her family. REVIEW OF SYSTEMS: CONSTITUTIONAL: At her height of 4 feet 10-3/4 inches, her ideal body weight is 118 pounds. Her highest weight was 350 pounds. Today she comes weighing 339 pounds. She has lost 6 pounds. Body mass index is reduced from 71.4 down to 69.1. She is 221 pounds overweight. MUSCULOSKELETAL: Severe lower back pain and bilateral knee pain. GASTROINTESTINAL: Upper endoscopy consistent with gastroesophageal reflux disease including diaphragmatic hiatal hernia. HEENT: Denies any troubles with vision, hearing or dysphagia. ENDOCRINE: No report of thyroid disorder. She has now developed diabetes type 2. RESPIRATORY: Denies any recent dyspnea on exertion; however, she does have obstructive sleep apnea and uses CPAP machine. CARDIOVASCULAR: No reports of chest pain or heart attack. NEURO: No reports of stroke or seizure disorders. PSYCH: Denies depression or suicidal ideation. HEMATOLOGIC: Denies any easy bruising or bleeding. PHYSICAL EXAM: VITAL SIGNS: 4 feet, 10-3/4 inch, 329 pounds. Body mass index of 69.1 GENERAL: Well developed and in no acute distress. Pleasant. HEENT: No sclera icterus. Extraocular movements grossly intact. Moist buccal mucosa. Head is atraumatic, normocephalic. Hears conversational speech. No nasal drainage. NECK: Supple without lymphadenopathy. No JV distention. CHEST: Non-labored respirations and equal bilateral excursions. CARDIOVASCULAR: Regular rate and rhythm. Palpable 2+ radial pulses. ABDOMEN: Soft, nontender. Nondistended. MUSCULOSKELETAL: No clubbing, cyanosis or edema. NEUROLOGIC: No focal or lateralizing signs. PSYCH: Appropriate affect. Alert and oriented to person, place and time. SKIN: Well-perfused. Good skin turgor. LABS: Reviewed. ASSESSMENT: 1. Morbid obesity due to excess calories. 2. Body mass index reduced from 71.4 down to 69.1. 3. Obstructive sleep apnea, moderate. 4. Diabetes type 2. 5. Elevated AST, ALT. 6. Fatty liver disease. 7. Hypertriglyceridemia. 8. Osteoarthritis of the lower back. 9. Osteoarthritis of the bilateral knees. 10. Dietary surveillance and counseling. 11. Panniculitis. 12. Vitamin D deficiency. 13. Hypertension. 14. Osteoarthritis bilateral hips. 15. Gastroesophageal reflux disease. 16. Diaphragmatic hiatal hernia. PLAN: 1. For the patient's size and body habitus, recommend a robotic-assisted laparoscopic Dat-en-Y gastric bypass. 2. A second generation bariatric consent form was reviewed in detail including bleeding, infection, leaks, nutritional deficiencies, intra-abdominal adhesions , etc. 3. Inpatient hospitalization at least 2 nights. 4. DVT prophylaxis. 5. Antibiotic prophylaxis. Past Medical History Past Medical History: GERD/Reflux, Sleep Apnea/CPAP/BIPAP Additional Past Medical History / Comment(s): hiatal hernia,uses cpap History of Any Multi-Drug Resistant Organisms: None Reported Past Surgical History: Section, Cholecystectomy, Tubal Ligation Additional Past Surgical History / Comment(s): 2 c sect Past Anesthesia/Blood Transfusion Reactions: No Reported Reaction Additional Past Anesthesia/Blood Transfusion Reaction / Comment(s): No blood transfusion Smoking Status: Never smoker - Past Family History Mother Family Medical History: No Reported History Father Family Medical History: Diabetes Mellitus Medications and Allergies Home Medications Medication Instructions Recorded Confirmed Type traMADol HCL [Ultram] 50 mg PO QID 07/03/16 02/28/17 History Diclofenac Sodium [Voltaren] 75 mg PO BID 08/06/16 02/28/17 History Ergocalciferol [Vitamin D2 50,000 unit PO Q7D #12 cap 11/01/16 02/28/17 Rx (DRISDOL)] Famotidine [Pepcid] 40 mg PO QAM 02/28/17 02/28/17 History Nystatin 100,000 Unit/gm Powd 1 applic TOPICAL BID PRN 02/28/17 02/28/17 History [Mycostatin Powder] Zolpidem Tartrate [Ambien] 15 mg PO HS 02/28/17 02/28/17 History Allergies Allergy/AdvReac Type Severity Reaction Status Date / Time No Known Allergies Allergy Verified 02/27/17 16:17
[~2017-03-07 11:05] MED LIST changes: +DEXAMETHASONE SOD PHOSPHATE 10 MG/ML 1 ML VIAL IV ONE; +HYDROmorphone 1 MG/ML 1 ML SYRINGE IVP PRN; +SCOPOLAMINE 1.5MG/72HR PATCH TRANSDERM ONE; +ceFAZolin 3 GM in SODIUM CHLORIDE 0.9% 100 ML IVPB ONE
[2017-03-07] MEDS ORDERED: ENOXAPARIN 40 MG/0.4 ML SYRINGE SQ STA (12:01)
[2017-03-07] MEDS ORDERED: PANTOPRAZOLE 40 MG/10 ML VIAL IV STA (12:01)
[2017-03-07] MEDS ORDERED: CHLORHEXIDINE GLUCONATE 15 ML CUP MUCOUS MEM ONE (12:01)
[2017-03-07] MEDS ORDERED: ACETAMINOPHEN IV (For NPO) 1,000 MG in EMPTY BAG 1 BAG IVPB ONE ×2 (12:01→18:28)
[2017-03-07] MEDS ORDERED: LACTATED RINGERS 1,000 ML IV ONE ×3 (12:32→17:29)
[2017-03-07] MEDS: ONDANSETRON 4 MG/2 ML VIAL IVP ONE ×2 (12:33→18:20)
[2017-03-07] MEDS ORDERED: ACETAMINOPHEN IV (For NPO) 1,000 MG/100 ML VIAL ONE (13:04)
[2017-03-07] MEDS ORDERED: VECURONIUM 10 MG VIAL IV ONE (13:04)
[2017-03-07] MEDS ORDERED: MIDAZOLAM 2 MG/2 ML VIAL ONE (13:04)
[2017-03-07] MEDS ORDERED: WATER FOR INJECTION, STERILE 10 ML VIAL IV ONE (13:04)
[2017-03-07] MEDS ORDERED: fentaNYL (PF) 50 MCG/ML 2 ML AMP ONE (13:04)
[2017-03-07] MEDS ORDERED: ePHEDrine SULFATE/0.9% NACL/PF 50 MG/5 ML SYRINGE IV ONE (13:04)
[2017-03-07] MEDS ORDERED: PROPOFOL 10 MG/ML 20 ML VIAL IV ONE (13:04)
[2017-03-07] MEDS ORDERED: GLYCOPYRROLATE 0.2 MG/ML 2 ML VIAL ONE (13:04)
[2017-03-07] MEDS ORDERED: SUCCINYLCHOLINE CHLORIDE VIAL 200 MG/10 ML VIAL IV ONE (13:04)
[2017-03-07] MEDS ORDERED: NEOSTIGMINE 1 MG/ML 10 ML VIAL ONE (13:04)
[2017-03-07] MEDS ORDERED: LIDOCAINE 1% INJ 10MG/ML (20 ML MDV) ONE (13:04)
[2017-03-07] MEDS ORDERED: BUPIVACAINE-EPI 0.5%-1:200,000 10 ML VIAL SQ ONE (13:48)
[2017-03-07] MEDS ORDERED: NALOXONE 0.4 MG/ML 1 ML VIAL IV PRN (18:28)
[2017-03-07] MEDS ORDERED: ONDANSETRON 4 MG/2 ML VIAL IVP PRN (18:28)
[2017-03-07] MEDS ORDERED: diphenhydrAMINE 50 MG/ML 1 ML VIAL IVP PRN (18:28)
--- NOTE | 2017-03-07 18:28 | P.PN ---
Progress Note - Text Postoperatively, patient reassessed. Scopolamine patch was ordered however not given in the preoperative area. Scopolamine patch placed in the recovery room. Patient was awake and alert and answering questions.
--- NOTE | 2017-03-07 18:28 | P.PCN ---
Date of Procedure: 03/07/17 Preoperative Diagnosis: Morbid obesity, BMI 65.5, diabetes type 2, obstructive sleep apnea, hypertension , osteoarthritis of the lower back Postoperative Diagnosis: Same Procedure(s) Performed: 1. Laparoscopic lysis of adhesions over 1 hour from previous along the pelvis involving greater omentum 2. Laparoscopic gastric bypass, 75 cm antecolic antigastric Dat limb 3. Intraoperative esophagogastrojejunoscopy Anesthesia: GETA, local Surgeon: Melanie Presley Stranner #1: Olesya Scott Estimated Blood Loss (ml): 20 Pathology: none sent Condition: stable Disposition: floor Operative Findings: 1. A total of 4 robotic blue loads used to create gastric pouch, 45 mm length staplers 2. Severe adhesions of lower abdomen from previous involving greater omentum to the pelvis adding an additional hour for her case. 3. Fatty liver disease with moderate to severe hepatomegaly adding additional complexity case by 45 minutes. 4. Additional 5 mm port along the right lateral lower abdominal wall to facilitate adhesional lysis 5. Length of pannus beyond the knees to the lower leg secured using secure straps. 6. Length of xiphoid to umbilicus 37 cm. 7. Trochars position 15 cm distal to the xiphoid. 8. All extended length trochars used to accommodate 6 inch of subcutaneous tissue 9. Anderson defect including mesenteric defect of the jejunum obliterated by abdominal fat 10. Left upper quadrant trocar site of the EEA stapler 25 mm closed using 0 Vicryl. 11. 25 mm Orvil used for gastrojejunostomy and negative leak test.
[2017-03-07] MEDS: MAGNESIUM SULFATE-D5W PMX 1 GM in DEXTROSE/WATER 1 100ML.BAG IVPB SCH ×2 (20:25→22:56)
[2017-03-07] MEDS: ALBUTEROL NEBULIZED 2.5 MG/3 ML INHALATION SCH (21:12)
[2017-03-07] MEDS: HYDROmorphone 1 MG/ML 1 ML SYRINGE IVP PRN (22:24)
[2017-03-07] MEDS: 0.9% NACL WITH KCL 20 MEQ/L 1,000 ML IV SCH (22:28)
[2017-03-08] MEDS: SIMETHICONE 40 MG/0.6 ML DROPS 2,000 MG/30 ML BOTTLE PO SCH ×4 (01:00→17:11)
[2017-03-08] MEDS: HYOSCYAMINE ORAL DROPS 1.875 MG/15 ML BOTTLE PO SCH ×4 (01:00→17:12)
[2017-03-08] MEDS: METOCLOPRAMIDE 5 MG/ML 2 ML VIAL IVP SCH ×4 (01:01→17:12)
[2017-03-08] MEDS: ceFAZolin 3 GM in SODIUM CHLORIDE 0.9% 100 ML IVPB SCH ×2 (01:01→07:16)
[2017-03-08] MEDS: HYDROmorphone 1 MG/ML 1 ML SYRINGE IVP PRN ×5 (03:20→17:10)
[2017-03-08] MEDS: 0.9% NACL WITH KCL 20 MEQ/L 1,000 ML IV SCH ×2 (06:07→07:11)
[2017-03-08] MEDS: PANTOPRAZOLE 40 MG/10 ML VIAL IV SCH (07:17)
[2017-03-08] MEDS: ENOXAPARIN 40 MG/0.4 ML SYRINGE SQ SCH ×2 (07:17→20:17)
[2017-03-08] MEDS: ALBUTEROL NEBULIZED 2.5 MG/3 ML INHALATION SCH ×4 (07:30→20:29)
[2017-03-08 07:41] LABS: Basophils % (A) 0 %; CH 27.1; CHCM 31.6; Eosinophils % (A) 0 %; HCT 39.9 % (34.0-46.0); HDW 2.75; HGB 12.8 gm/dL (11.4-16.0); Hypochromasia Slight; Luc # (Auto) 0.12; Luc % (Auto) 1; Lymphocytes % (A) 8 %; MCH 27.7 pg (25.0-35.0); MCHC 32.2 g/dL (31.0-37.0); MCV 86.2 fL (80.0-100.0); Mean Platelet Volume 7.4; Monocytes # (A) 0.5 k/uL (0-1.0); Monocytes % (A) 4 %; Neutrophils # (A) 10.9 k/uL (1.3-7.7); Neutrophils % (A) 87 %; RBC 4.63 m/uL (3.80-5.40); RDW 14.5 % (11.5-15.5); WBC 12.6 k/uL (3.8-10.6); WBC (Perox) 12.58
[2017-03-08 08:13] LABS: Anion Gap 10 mmol/L; Blood Urea Nitrogen 7 mg/dL (7-17); Calcium 8.3 mg/dL (8.4-10.2); Carbon Dioxide 25 mmol/L (22-30); Chloride 104 mmol/L (98-107); Magnesium 2.1 mg/dL (1.6-2.3); Non-African American GFR(MDRD) >60 (>60 ml/min/1.73 sqM); Phosphorous 3.2 mg/dL (2.5-4.5); Potassium 4.1 mmol/L (3.5-5.1); Sodium 139 mmol/L (137-145)
--- NOTE | 2017-03-08 09:17 | P.PN ---
<Gricelda Euceda - Last Filed: 03/08/17 09:05> Subjective Pleasant 36-year-old female being seen in rounds this morning currently resting in bed with BiPAP on. Patient states that she has been up to the bathroom twice urinating no difficulty. Patient reports having slight surgical discomfort left upper quadrant. Surgical dressing dry. Endoscopic sites abdominal wall dry no redness. Patient's denying any dizziness lightheadedness shortness of breath or chest pain when questioning Postop March 07 lysis of adhesions with gastric bypass for morbid obesity BMI 65 Objective - Vital Signs Vital signs: Vital Signs Temp 98.2 F 03/08/17 07:26 Pulse 104 H 03/08/17 07:45 Resp 17 03/08/17 07:31 BP 108/58 03/08/17 07:26 Pulse Ox 93 L 03/08/17 07:39 Intake & Output 03/07/17 03/08/17 03/08/17 18:59 06:59 18:59 Intake Total 1800 50 Output Total 370 600 Balance 1430 -550 Weight 149.822 kg Intake: IV 1800 Oral 50 Output: Urine 350 600 Estimated Blood Loss 20 Other: Voiding Method Toilet Bedpan # Voids 3 - Exam Physical exam Pleasant 36-year-old female resting in bed CPAP on appears in no acute distress oriented 3 pleasant cooperative Lungs essentially clear with adequate air movement no shortness of breath noted on room air sats are documented 92% Heart S1-S2 audible regular denying chest pain Abdomen obese soft surgical tenderness bowel tones present laparoscopic sites dry no redness. Urinating no difficulty. Reports no nausea no vomiting no frequent stooling. Extremities no edema noted - Labs CBC & Chem 7: 03/08/17 06:51 03/08/17 06:51 Labs: Abnormal Lab Results - Last 24 Hours (Table) 03/08/17 03/08/17 Range/Units 06:51 06:51 WBC 12.6 H (3.8-10.6) k/uL Neutrophils # 10.9 H (1.3-7.7) k/uL Calcium 8.3 L (8.4-10.2) mg/dL Assessment and Plan Plan: Impression Status post March 07 robotic-assisted laparoscopic harsh-en-y gastric bypass for morbid obesity Morbid obesity BMI 65 Obstructive sleep apnea with CPAP therapy Osteoarthritis lower back and bilateral knees Plan Continue postop surgical care Pain control DVT and GI prophylaxis Reglan 10 mg IV every 6 hours Anti-emetics as ordered simethicone 40mg every 6 hours Increase activity PT OT eval Bariatric clear liquid diet Dietitian consult nutritional support The above impression and plan of care have been discussed and directed by signing physician. Gricelda Euceda nurse practitioner acting as scribe for signing physician. <Melanie Presley N - Last Filed: 03/08/17 22:17> Objective - Vital Signs Vital signs: Vital Signs Temp 97.9 F 03/08/17 20:08 Pulse 101 H 03/08/17 20:49 Resp 17 03/08/17 20:08 BP 140/86 03/08/17 20:08 Pulse Ox 94 L 03/08/17 20:08 Intake & Output 03/08/17 03/08/17 03/09/17 06:59 18:59 06:59 Intake Total 50 Output Total 600 Balance -550 Weight 149.822 kg Intake: Oral 50 Output: Urine 600 Other: Voiding Method Toilet Bedpan # Voids 3 1 1 - Labs CBC & Chem 7: 03/08/17 06:51 03/08/17 06:51 Labs: Abnormal Lab Results - Last 24 Hours (Table) 03/08/17 03/08/17 Range/Units 06:51 06:51 WBC 12.6 H (3.8-10.6) k/uL Neutrophils # 10.9 H (1.3-7.7) k/uL Calcium 8.3 L (8.4-10.2) mg/dL
[2017-03-08] MEDS ORDERED: SODIUM CHLORIDE 0.9% 1,000 ML BAG ONE (10:38)
[2017-03-08] MEDS: 1: MVI, ADULT NO.4 WITH VIT K 10 ML, THIAMINE 100 MG, FOLIC ACID 1 MG, POTASSIUM CHLORID IV SCH ×12 (10:38→17:45)
[2017-03-08 13:22] VITALS: BMI 65.5
[2017-03-08] MEDS: HYDROcodone/APAP 15 ML SOLUTION PO PRN (20:23)
--- NOTE | 2017-03-08 22:19 | P.PN ---
Progress Note - Text Patient seen and evaluated this evening. She reports feeling quite well. She has occasional left upper abdominal pain as to be expected from her incision. No reports or shortness of breath. No reports of nausea and vomiting. She has been tolerating liquids. She did walking ambulation study and O2 sat was less than 90%. With her decreased O2 including tachycardia, I recommend CT of the chest abdomen and pelvis per protocol. Should her studies be unremarkable, potential discharge home following studies.
[2017-03-08] MEDS ORDERED: RX INFO: IV CONTRAST WAS GIVEN 1 EACH MISC MISCELLANE PRN (22:20)
[2017-03-08] MEDS ORDERED: IOHEXOL 350 MG/ML 25 ML BOTTLE (ORAL USE) PO PRN (22:20)
[2017-03-09] MEDS: HYOSCYAMINE ORAL DROPS 1.875 MG/15 ML BOTTLE PO SCH ×3 (00:07→12:00)
[2017-03-09] MEDS: METOCLOPRAMIDE 5 MG/ML 2 ML VIAL IVP SCH ×3 (00:07→12:01)
[2017-03-09] MEDS: SIMETHICONE 40 MG/0.6 ML DROPS 2,000 MG/30 ML BOTTLE PO SCH ×3 (00:08→11:59)
[2017-03-09] MEDS: HYDROmorphone 1 MG/ML 1 ML SYRINGE IVP PRN (01:02)
[2017-03-09 02:23] VITALS: RESP 16
[2017-03-09] MEDS: HYDROcodone/APAP 15 ML SOLUTION PO PRN ×2 (04:32→12:30)
[2017-03-09] MEDS: ALBUTEROL NEBULIZED 2.5 MG/3 ML INHALATION SCH ×4 (07:27→20:46)
[2017-03-09] MEDS: PANTOPRAZOLE 40 MG/10 ML VIAL IV SCH (09:29)
[2017-03-09] MEDS: ENOXAPARIN 40 MG/0.4 ML SYRINGE SQ SCH (09:29)
[2017-03-09] MEDS: 1: MVI, ADULT NO.4 WITH VIT K 10 ML, THIAMINE 100 MG, FOLIC ACID 1 MG, POTASSIUM CHLORID IV SCH ×12 (10:13→13:45)
[2017-03-09] MEDS ORDERED: SODIUM CHLORIDE 0.9% 1,000 ML BAG ONE (10:13)
[2017-03-09 10:45] LABS: Anion Gap 7 mmol/L; Blood Urea Nitrogen 5 mg/dL (7-17); Calcium 8.2 mg/dL (8.4-10.2); Carbon Dioxide 27 mmol/L (22-30); Chloride 106 mmol/L (98-107); Glucose 117 mg/dL (74-99); Non-African American GFR(MDRD) >60 (>60 ml/min/1.73 sqM); Potassium 4.4 mmol/L (3.5-5.1); Sodium 140 mmol/L (137-145)
[2017-03-09 10:56] LABS: Basophils % (A) 0 %; CH 27.7; CHCM 32.3; Eosinophils % (A) 1 %; HCT 37.7 % (34.0-46.0); HDW 2.75; HGB 11.9 gm/dL (11.4-16.0); Luc % (Auto) 1; Lymphocytes # (A) 1.1 k/uL (1.0-4.8); Lymphocytes % (A) 15 %; MCH 27.2 pg (25.0-35.0); MCHC 31.5 g/dL (31.0-37.0); MCV 86.2 fL (80.0-100.0); Mean Platelet Volume 7.8; Monocytes # (A) 0.3 k/uL (0-1.0); Monocytes % (A) 5 %; Neutrophils # (A) 5.9 k/uL (1.3-7.7); Neutrophils % (A) 79 %; RBC 4.37 m/uL (3.80-5.40); RDW 15.4 % (11.5-15.5); WBC 7.5 k/uL (3.8-10.6)
--- NOTE | 2017-03-09 11:13 | CT ---
EXAMINATION TYPE: CT chest angio for PE DATE OF EXAM: 03/09/2017 COMPARISON: NONE HISTORY: Morbid obesity, Gastric bypass surgery CT DLP: 920.20 mGycm Automated exposure control for dose reduction was used. CONTRAST: CT Chest for pulmonary embolism performed with with IV Contrast, patient injected with 100 ml mL of O mnipaque 300. FINDINGS: There is bibasilar airspace disease either representing atelectasis or early pneumonia. The re is also some minimal airspace disease in the left lingula. There is no significant axillary, internal mammary, mediastinal or hilar adenopathy. There is no evidence of pulmonary embolus. The aorta is normal in size without evidence of dissection. There is no evidence of pleural or pericardial fluid. The heart is not enlarged. Within the abdomen, there is fatty infiltration of the liver. Visualized portions of the upper abdome n are otherwise unremarkable. There is hypertrophic spondylosis in the spine. IMPRESSION: 1. THIS EXAMINATION IS NEGATIVE FOR PULMONARY EMBOLUS. 2. BIBASILAR AIRSPACE DISEASE EITHER REPRESENTING ATELECTASIS OR PNEUMONIA. 3. FATTY INFILTRATION OF THE LIVER. 4. DEGENERATIVE CHANGE WITHIN THE SPINE.
--- NOTE | 2017-03-09 11:21 | CT ---
EXAMINATION TYPE: CT abdomen pelvis w con DATE OF EXAM: 03/09/2017 REFERENCE: NONE HISTORY: Abdominal pain, gastric bypass prep HISTORY: morbid obesity, gastric bypass surgery 2 days prior REFERENCE: NONE CT DLP: 3467.30 mGy Automated exposure control for dose reduction was used. TECHNIQUE: Helical acquisition through the abdomen and pelvis was obtained following the oral ingesti on of with Oral Contrast and following intravenous administration of 100 ml mL of Omnipaque 300. The data was reformatted in axial, coronal and sagittal projections. FINDINGS: There is considerable artifact due to the fact of the patient's body is touching the size of the scanner. There is bibasilar airspace disease either representing atelectasis or pneumonia. There is no pleural or pericardial fluid. The heart is not enlarged. Within the abdomen, there is evidence of gastric surgery. The liver is mildly enlarged measuring 19 cm. The gallbladder is been removed. The spleen is unremark able. Both adrenal glands are normal. Both kidneys demonstrate function and appear morphologically normal. The pancreas is unremarkable. There is no significant retroperitoneal, iliac or inguinal adenopathy. There is follicular change of both ovaries. The uterus is unremarkable. The bladder is unremarkable. There is no significant diverticular change and I do not see evidence of diverticulitis. The appendix is not visualized with certainty. There is subcutaneous emphysema in the left side of the abdomen. There are small bubbles of free air within the peritoneal cavity. There is also some subcutaneous emphysema involving the anterior abdomi nal wall. There is mild hypertrophic spondylosis in the lower dorsal spine. There is mild hypertrophic spondylo sis in the lower dorsal spine. There is a small amount of free fluid. IMPRESSION: 1. POSTSURGICAL CHANGE. 2. SUBCUTANEOUS AND INTRAPERITONEAL AIR IS LIKELY SIMPLY POSTOPERATIVE. 3. BIBASILAR AIRSPACE DISEASE EITHER REPRESENTING ATELECTASIS OR PNEUMONIA.
--- NOTE | 2017-03-09 11:45 | P.PN ---
Subjective Principal diagnosis: Morbid obesity The patient is a 36-year-old female status post robotic-assisted gastric bypass with extensive lysis of adhesions. She is tolerating her liquids. No reports of nausea and vomiting. No reports of fevers or chills. She reports as suspected soreness of her left upper quadrant incision. She is ambulating. She is urinating on her own. She is eager to go home. Objective - Vital Signs Vital signs: Vital Signs Temp 98.4 F 03/09/17 07:20 Pulse 87 03/09/17 08:00 Resp 16 03/09/17 07:20 BP 113/75 03/09/17 07:20 Pulse Ox 93 L 03/09/17 07:28 Intake & Output 03/08/17 03/09/17 03/09/17 18:59 06:59 18:59 Intake Total 1121.2 Balance 1121.2 Weight 149.822 kg Intake: Intake, IV Titration 1121.2 Amount Mvi, Adult No.4 with Vit 1121.2 K 10 ml Thiamine 100 mg Folic Acid 1 mg Potassium Chloride 20 meq In Sodium Chloride 0.9% 1, 000 ml @ 100 mls/hr IV . BY DURATION [facility] Rx#: [id number] Other: Voiding Method Toilet Toilet Bedpan # Voids 1 3 - Exam GENERAL: Well developed and in no acute distress. Pleasant. HEENT: No sclera icterus. Extraocular movements grossly intact. Moist buccal mucosa. Head is atraumatic, normocephalic. Hears conversational speech. No nasal drainage. CHEST: Non-labored respirations and equal bilateral excursions. CARDIOVASCULAR: Palpable 2+ pulses. At the time of my evaluation heart rate is under 100. ABDOMEN: Soft, serosanguineous drainage along left upper quadrant incision. No peritonitis. MUSCULOSKELETAL: No clubbing, cyanosis or edema. NEUROLOGIC: No focal or lateralizing signs. PSYCH: Appropriate affect. Alert and oriented to person, place and time. SKIN: Good skin turgor. Well perfused. - Labs CBC & Chem 7: 03/09/17 10:17 03/09/17 10:17 Labs: Abnormal Lab Results - Last 24 Hours (Table) 03/09/17 Range/Units 10:17 BUN 5 L (7-17) mg/dL Glucose 117 H (74-99) mg/dL Calcium 8.2 L (8.4-10.2) mg/dL - Imaging and Cardiology CT scan - abdomen: report reviewed, image reviewed CT scan - chest: report reviewed, image reviewed CT scan - pelvis: report reviewed (I personally reviewed her films without findings of diffuse air bubbles along her anastomosis. Postprocedure intraperitoneal air confirmed along the subcutaneous tissue. No evidence of leak. Also findings most clinically consistent with atelectasis.), image reviewed Assessment and Plan (1) Morbid obesity with BMI of 60.0-69.9, adult Status: Acute (2) Diabetes type 2, controlled Status: Acute (3) Sleep apnea Status: Acute (4) Panniculitis Status: Acute (5) Atelectasis of both lungs Status: Acute (6) Osteoarth NOS-other site Status: Acute (7) Hypertensive heart disease Status: Acute Plan: 1. Her imaging report was reviewed consistent with atelectasis without leaks. Clinically, she is improving daily and is tolerating liquids. 2. I have encouraged her using her incentive spirometer for her atelectasis. 3. I have encouraged her at home ambulation to decrease risk for DVTs. 4. [place] bariatric surgery collaborative VTE calculator was performed where the patient is at 0.98% risk for DVT and is low. Post discharge Lovenox is held. 5. Bariatric diet and information were reviewed. 6. Discharge home today.
[2017-03-09 15:17] VITALS: BP 121/78; TEMP 97.6
[2017-03-09 20:47] VITALS: PULSE 86
--- NOTE | 2017-03-12 23:54 | P.OP ---
Date of Procedure: 03/07/17 Description of Procedure: SURGEON: AMADOU YEE MD MANGLE CATCHER: Olesya Scott PREOPERATIVE DIAGNOSES: 1. Morbid obesity due to excess calories. 2. Body mass index reduced from 71.4 down to 69.1. 3. Obstructive sleep apnea, moderate. 4. Diabetes type 2. 5. Elevated AST, ALT. 6. Fatty liver disease. 7. Hypertriglyceridemia. 8. Osteoarthritis of the lower back. 9. Osteoarthritis of the bilateral knees. 10. Dietary surveillance and counseling. 11. Panniculitis. 12. Vitamin D deficiency. 13. Hypertension. 14. Osteoarthritis bilateral hips. 15. Gastroesophageal reflux disease. 16. Diaphragmatic hiatal hernia. POSTOPERATIVE DIAGNOSES: 1. Morbid obesity due to excess calories. 2. Body mass index reduced from 71.4 down to 69.1. 3. Obstructive sleep apnea, moderate. 4. Diabetes type 2. 5. Elevated AST, ALT. 6. Fatty liver disease. 7. Hypertriglyceridemia. 8. Osteoarthritis of the lower back. 9. Osteoarthritis of the bilateral knees. 10. Dietary surveillance and counseling. 11. Panniculitis. 12. Vitamin D deficiency. 13. Hypertension. 14. Osteoarthritis bilateral hips. 15. Gastroesophageal reflux disease. 16. Diaphragmatic hiatal hernia. 17. Severe peritoneal adhesions involving the lower midline and pelvis. 18. Fatty liver disease with severe hepatomegaly. OPERATION: 1. Laparoscopic lysis of adhesions over 1 hour from previous along the pelvis involving greater omentum. 2. Robotic-assisted laparoscopic Dat-en-Y gastric bypass, 75 cm antecolic antegastric Dat limb, with 25 mm Orvil. 3. Intraoperative esophagogastrojejunoscopy. ANESTHESIA: General with local anesthetic ESTIMATED BLOOD LOSS: 20 mL SPECIMENS REMOVED: None. INDICATIONS: Talha Crawford is a 36-year-old female with history of morbid obesity. She initially presented to the bariatric center in June 2016. At her height of 4 feet 10-3/4 inches, her ideal body weight is 118 pounds. She comes in weighing 330 pounds. Her highest weight was 350 pounds. She has developed comorbidities including diabetes type 2 as well as obstructive sleep apnea and osteoarthritis of the lower back, knees and severe panniculitis. Body mass index is reduced from 71.4 down to 69.1. She is 221 pounds overweight. She has completed preoperative dietary education including fully educated on all surgical options for which she presents today. She comes in for a gastric bypass. All surgical options for morbid obesity had been described using the [place] bariatric surgery collaborative data including comorbidity resolution and complication risk score. The patient had elected for a gastric bypass with possible sleeve gastrectomy. A second-generation bariatric consent form was described in detail including the possibility of protein malnutrition, leaks, gastrojejunal stricture, venous thrombosis, need for further surgery for which she demonstrated understanding. Benefits and risks of the procedure were described at length. Informed consent was obtained. DESCRIPTION: The patient was brought into the operating room theater. She was placed on a table. Preoperatively she had received Lovenox subcutaneously for DVT prophylaxis. Additionally she had undergone Peridex oral solution as an oral decontaminant. After general induction, the abdomen was prepped and draped in standard sterile fashion. Ioban draping was placed along the abdomen. She was additionally secured along the bilateral lateral lower legs including the lower pannus. A robotic da Nikolai Si system was prepped and primed. The xiphoid to umbilicus was measured of 37 cm. Proposed port sites were marked with indelible marker along the anterior axillary line bilaterally, mid clavicular line bilaterally with each port marked 10 cm from each other. The assistant public defender port was marked along the bilateral lower abdominal wall. The robotic stapler port was marked for the right midclavicular line. A 10 mm 0 degrees laparoscopic trocar entry was performed along the left upper quadrant. The abdomen was insufflated to 15 mmHg pressure she tolerated well. Diagnostic laparoscopy demonstrated no injury to bowel, viscera , or mesentery. The liver surface was unremarkable. No evidence of large prominent hiatal hernia was encountered. Severe peritoneal adhesions involving the lower pelvis was identified involving the greater omentum. A 12 mm camera port was placed left lateral to the umbilicus, 15 cm distal to the xiphoid. Next, 13-mm robot stapler port was placed along the right mid abdomen. The camera 12-mm port extended length was maintained along the epigastrium. An 8 mm robotic port was placed along the left upper abdominal wall after exchanging the 12 mm port. An additional 5 mm port was placed along the right lower quadrant whereby extensive lysis of adhesions were performed witth a Kitner including a Sonicision for over an hour. The small bowel was investigated for interloop adhesions. Additional lysis of adhesions was performed. The greater omental adhesions were sharply lysed as described. All bariatric length robotic trochars were used. Please note that the ports were placed 18 to 20 cm away from the target anatomy of the stomach. Care was taken to check that each robotic arm was safely away from collision with the bed or the patient. At the epigastrium, a medium sized Brian liver retractor was placed under direct visualization with the [employer] placed over the right shoulder of the patient. The additional third robotic arm was placed along the left aspect of the patient. The patient was repositioned in reverse Trendelenburg position after lowering the bed. The robot was docked over the patient. Using a grasper for arm 3, a grasper for arm 1, including vessel sealer for arm 2, the robotic system was docked and primed as described. Instruments were interchanged by the assistant public defender including hook cautery, the needle cdl company driver, and stapler. I had sat at the console. Next, the transverse mesocolon was reflected into the upper abdomen preparing for the jejunojejunostomy portion of the case. The transverse mesocolon was divided. The ligament of Treitz was identified and measured 60 cm antegrade and marked using 2-0 Vicryl. The jejunum was divided at the 60 cm point above the suture measurement. The biliopancreatic limb was held in place. The Dat limb was measured 75 cm in an antegrade fashion to avoid tension along the proposed gastrojejunal anastomosis. At 75 cm along the anti-mesenteric border of the Dat limb, a jejunojejunostomy was proposed whereby enterotomies were created along the biliopancreatic limb including the Dat limb using a Bovie cautery. A stay suture of 2-0 Vicryl was placed to align and create the anastomosis. The enterotomies along the anti-mesenteric borders were created followed by unidirectional fire from the patient's right side using 2 - 45 mm blue load Smart technology robotic stapler. The jejunojejunostomy was found to be hemostatic. The enterotomy was closed after horizontal mattress stitch of 2-0 silk used to elevate the enterotomy followed by closure with the robotic stapler blue load. Attention was now brought to the creation of the gastrojejunostomy. Along the lesser curvature of the stomach between the second and third veins, dissection was made along the retrogastric space to allow first firing of the robotic staple. No large hiatal hernia was identified of the anterior hiatus. Four fires of robotic clement were used for creation of a gastric pouch. The robot was undocked for completion of the gastrojejunostomy using an Orvil. The patient was then prepared for placement of a Orvil. The patient was Mallampati 2. A 25-mm Orvil was selected for placement by the nurse still operator helper. The Orvil tubing was placed anterior to the staple line of the gastric pouch and brought out through the left inferior lateral port. The Orvil was then carefully and successfully navigated with the help of the nurse still operator helper into the gastric pouch. The sutures were identified and divided. The tubing was from the 25 mm anvil. Using aseptic technique all instruments including port sites were exchanged. As the Orvil had been placed, the blind jejunal limb was brought proximally into the upper abdomen. No torsion was found upon the Dat limb. No tension was identified as the limb was brought along the upper abdomen. The blind jejunal limb was opened using a cordless Harmonic scalpel. The 25-mm EEA stapler was brought through the left anterior lateral port site from the left side. Please note that the trocars from the Orvil tubing, including the port, were removed to minimize contamination from the oral yessy. The EEA stapler was brought through the open jejunal limb and its needle was deployed at the antimesenteric border where the anvil were mated for approximately 1 minute upon firing. The stapler was removed after irrigating the shaft of the instrument with warm normal saline. Donuts were found to be intact. No reinforcement sutures were placed at the anastomosis. The open jejunal limb defect was closed using a Covidien 60 mm acosta load after releasing any tension from the blind jejunal limb. Hemostasis was checked with Sonicision along the blind jejunal limb mesentery. Care was taken to avoid any long blind limb to avoid candycane syndrome. The Velasquez and jejunojejunostomy mesenteric defects were obliterated by her intra-abdominal fat. I then went to the head of the bed to perform the esophagogastrojejunoscopy and a leak test. An Olympus gastroscope was passed along the posterior oropharynx which was unremarkable for any injury to the vocal cords. The scope was passed down to the proximal portion of the pouch, whereby no active bleeding was encountered. Excellent visualization of the gastrojejunostomy anastomosis, including the Dat limb was encountered with endoscopic image obtained. The anastomosis was found to be patent. The gastrointestinal tract was desufflated. No evidence of intraoperative leak was encountered as the gastric pouch and anastomosis were submerged under normal saline solution. I then went back to the bedside of the patient, whereby with coordinated effort of the assistant public defender, irrigation was aspirated from the upper abdominal cavity. Tisseel was placed circumferentially over the anastomosis of the gastrojejunostomy. All instruments and pneumoperitoneum were evacuated from the abdominal cavity. The port correlating with the EEA stapler device was copiously irrigated with 1 L of warm normal saline solution and 20 mL of hydrogen peroxide. The fascial defect of the EEA stapler was closed using Rafa Hicks and 0 Vicryl. The rest of incisions were reapproximated using 3-0 Vicryl for deep subcutaneous tissue and dermis followed by 4-0 Monocryl in a running subcuticular fashion. For local anesthetic, 0.50% Marcaine with epinephrine was infiltrated along the skin for postop analgesia. Dermabond was applied to the skin. OptiFoam dressing was placed along the EEA stapler site. At the end of the procedure, needle, sponge and instrument count had been verified correct by the surgical endoscopist. She had tolerated the procedure well and was extubated and taken to the postanesthesia unit in stable condition. Operative Findings: 1. A total of 4 robotic blue loads used to create gastric pouch, 45 mm length staplers 2. Severe adhesions of lower abdomen from previous involving greater omentum to the pelvis adding an additional hour for her case. 3. Fatty liver disease with moderate to severe hepatomegaly adding additional complexity case by 45 minutes. 4. Additional 5 mm port along the right lateral lower abdominal wall to facilitate adhesionolysis 5. Length of pannus beyond the knees to the lower leg secured using secure straps. 6. Length of xiphoid to umbilicus 37 cm. 7. Trochars position 15 cm distal to the xiphoid. 8. All extended length trochars used to accommodate 6 inch of subcutaneous tissue 9. Anderson defect including mesenteric defect of the jejunum obliterated by abdominal fat 10. Left upper quadrant trocar site of the EEA stapler 25 mm closed using 0 Vicryl. 11. 25 mm Orvil used for gastrojejunostomy and negative leak test.
--- NOTE | 2017-03-13 00:49 | P.DS ---
Providers Date of admission: 03/07/17 11:05 Expected date of discharge: 03/09/17 Attending physician: Melanie Presley Primary care physician: Sulema Cherya - Discharge Diagnosis(es) (1) Morbid obesity with BMI of 60.0-69.9, adult Status: Acute (2) Diabetes type 2, controlled Status: Acute (3) Sleep apnea Status: Acute (4) Panniculitis Status: Acute (5) Atelectasis of both lungs Status: Acute (6) Osteoarth NOS-other site Status: Acute (7) Hypertensive heart disease Status: Acute Hospital Course: POSTOPERATIVE DIAGNOSES: 1. Morbid obesity due to excess calories. 2. Body mass index reduced from 71.4 down to 69.1. 3. Obstructive sleep apnea, moderate. 4. Diabetes type 2. 5. Elevated AST, ALT. 6. Fatty liver disease. 7. Hypertriglyceridemia. 8. Osteoarthritis of the lower back. 9. Osteoarthritis of the bilateral knees. 10. Dietary surveillance and counseling. 11. Panniculitis. 12. Vitamin D deficiency. 13. Hypertension. 14. Osteoarthritis bilateral hips. 15. Gastroesophageal reflux disease. 16. Diaphragmatic hiatal hernia. 17. Severe peritoneal adhesions involving the lower midline and pelvis. 18. Fatty liver disease with severe hepatomegaly. COURSE: Talha Crawford is a 36-year-old female with history of morbid obesity. She initially presented to the bariatric center in June 2016. At her height of 4 feet 10-3/4 inches, her ideal body weight is 118 pounds. She comes in weighing 330 pounds. Her highest weight was 350 pounds. She has developed comorbidities including diabetes type 2 as well as obstructive sleep apnea and osteoarthritis of the lower back, knees and severe panniculitis. Body mass index is reduced from 71.4 down to 69.1. She is 221 pounds overweight. She has completed preoperative dietary education including fully educated on all surgical options for which she presents today. She underwent a Dat-en-Y gastric bypass. Postoperatively, she was ambulating. She was tolerating a liquid diet. Her pain improved. Pertinent Studies: CT of the abdomen and pelvis demonstrating no leaks. CT of chest demonstrating no pulmonary embolism. Procedures: OPERATION: 1. Laparoscopic lysis of adhesions over 1 hour from previous along the pelvis involving greater omentum. 2. Robotic-assisted laparoscopic Dat-en-Y gastric bypass, 75 cm antecolic antegastric Dat limb, with 25 mm Orvil. 3. Intraoperative esophagogastrojejunoscopy. ANESTHESIA: General with local anesthetic ESTIMATED BLOOD LOSS: 20 mL SPECIMENS REMOVED: None. Patient Condition at Discharge: Stable Plan - Discharge Summary New Discharge Prescriptions: New HYDROcodone/APAP [[place] Elixir 7.5-325Mg/15Ml] 15 ml PO Q4HR PRN #480 ml PRN Reason: Pain Omeprazole 40 mg PO DAILY #30 capsule. HYDROcodone/APAP [[place] Elixir 7.5-325Mg/15Ml] 30 ml PO Q6HR PRN dose PRN Reason: Severe Pain Hyoscyamine Oral Drops [Levsin Drops] 0.125 mg PO Q6HR bottle Simethicone 40 mg/0.6 ml Drops [Mylicon Drops] 40 mg PO Q6HR bottle Continue Zolpidem Tartrate [Ambien] 15 mg PO HS Discontinued traMADol HCL [Ultram] 50 mg PO QID Diclofenac Sodium [Voltaren] 75 mg PO BID Ergocalciferol [Vitamin D2 (DRISDOL)] 50,000 unit PO Q7D #12 cap Famotidine [Pepcid] 40 mg PO QAM Nystatin 100,000 Unit/gm Powd [Mycostatin Powder] 1 applic TOPICAL BID PRN PRN Reason: yeast infection Discharge Medication List Zolpidem Tartrate [Ambien] 15 mg PO HS 02/28/17 [History] HYDROcodone/APAP [[place] Elixir 7.5-325Mg/15Ml] 15 ml PO Q4HR PRN #480 ml [Rx] Omeprazole 40 mg PO DAILY #30 capsule. 03/08/17 [Rx] HYDROcodone/APAP [[place] Elixir 7.5-325Mg/15Ml] 30 ml PO Q6HR PRN dose 03/09/17 [Rx] Hyoscyamine Oral Drops [Levsin Drops] 0.125 mg PO Q6HR bottle 03/09/17 [Rx] Simethicone 40 mg/0.6 ml Drops [Mylicon Drops] 40 mg PO Q6HR bottle 03/09/17 [ Rx] Follow up Appointment(s)/Referral(s): Bariatric Center,. [NON-STAFF] - 03/11/17 10:30 am Patient Instructions/Handouts: Nutrition after Bariatric Surgery (GEN), Dat- en-Y Gastric Bypass (GEN) Activity/Diet/Wound Care/Special Instructions: NO Lifting over 4 pounds in 4 weeks. May shower. No bath tub soaks.*Protein shake diet by Saturday. Discharge Disposition: HOME SELF-CARE
== END 2017-03-09 22:18 | disposition home or self-care (01) | DRG 620 ==
LOC: 2ORWHC 11:05 → 3SUR 17:49
PROVIDERS: ADMIT Surgery Plastic and Reconstructive Surgery; ATTEND Surgery Plastic and Reconstructive Surgery
PROC: 0DNS4ZZ (ICD-10-PCS; 2017-03-07)
PROC: 0DNW4ZZ Release Peritoneum, Percutaneous Endoscopic Approach (ICD-10-PCS; 2017-03-07)
PROC: 8E0W4CZ Robotic Assisted Procedure of Trunk Region, Percutaneous Endoscopic Approach (ICD-10-PCS; 2017-03-07)
PROC: 0DJ08ZZ Inspection of Upper Intestinal Tract, Via Natural or Artificial Opening Endoscopic (ICD-10-PCS; 2017-03-07)
PROC: 0D164ZA Bypass Stomach to Jejunum, Percutaneous Endoscopic Approach (ICD-10-PCS; principal; 2017-03-07 12:30)
DX: E66.01 Morbid (severe) obesity due to excess calories (principal); J98.11 Atelectasis; I11.9 Hypertensive heart disease without heart failure; K76.0 Fatty (change of) liver, not elsewhere classified; E11.9 Type 2 diabetes mellitus without complications; G47.33 Obstructive sleep apnea (adult) (pediatric); Z68.44 Body mass index [BMI] 60.0-69.9, adult; M17.0 Bilateral primary osteoarthritis of knee; M79.3 Panniculitis, unspecified; K21.9 Gastro-esophageal reflux disease without esophagitis; K44.9 Diaphragmatic hernia without obstruction or gangrene; M47.9 Spondylosis, unspecified; E55.9 Vitamin D deficiency, unspecified; M16.0 Bilateral primary osteoarthritis of hip; E78.1 Pure hyperglyceridemia; K66.0 Peritoneal adhesions (postprocedural) (postinfection); Z79.899 Other long term (current) drug therapy; Z71.3 Dietary counseling and surveillance; Z90.49 Acquired absence of other specified parts of digestive tract
CPT/HCPCS: 71275; 74177; 80048; 80051; 81025; 82310; 82565; 83735; 84100; 84520; 85025; 86850; 86900; 86901; 94640; 94760

== ENCOUNTER → 2017-03-11 | Outpatient (CLI) | payer MEDICARE, OTHER ==
[2017-03-11 11:12] VITALS: BP 121/83; PULSE 78; RESP 16; TEMP 97.4; BMI 67.6
--- NOTE | 2017-03-24 16:53 | P.PN ---
Subjective DATE OF SERVICE: 03/11/2017 CHIEF COMPLAINT: Follow gastric bypass. HISTORY OF PRESENT ILLNESS: Talha Crawford is a 36-year-old female with history of morbid obesity. She is status post gastric bypass on 03/07/2017. At her height of 4 feet 10-3/4 inches, her ideal body weight is 118 pounds. Her highest weight was 350 pounds. Today she comes weighing 331 pounds. She has lost 7 pounds in 1 month. Body mass index is reduced from 71.4 down to 67.6. She is 213 pounds overweight. She has been walking however she comes in requesting a scooter including a lift. She is accompanied by her social support network who encourages her to ambulate. No reports nausea and vomiting. No reports of fevers or chills. PHYSICAL EXAM: VITAL SIGNS: 4 feet, 10-3/4 inch, 331 pounds. Body mass index of 67.6. Vital Signs Temp 97.4 F L 03/11/17 11:05 Pulse 78 03/11/17 11:05 Resp 16 03/11/17 11:05 BP 121/83 03/11/17 11:05 Pulse Ox GENERAL: Well developed and in no acute distress. Pleasant. HEENT: No sclera icterus. Extraocular movements grossly intact. Moist buccal mucosa. Head is atraumatic, normocephalic. Hears conversational speech. No nasal drainage. NECK: Supple without lymphadenopathy. No JV distention. CHEST: Non-labored respirations and equal bilateral excursions. CARDIOVASCULAR: Regular rate and rhythm. Palpable 2+ radial pulses. ABDOMEN: Soft. Nondistended. Dressing discontinue. No signs of cellulitis or infection. Appropriate mild tenderness along the left upper quadrant. MUSCULOSKELETAL: No clubbing, cyanosis or edema. NEUROLOGIC: No focal or lateralizing signs. PSYCH: Appropriate affect. Alert and oriented to person, place and time. SKIN: Well-perfused. Good skin turgor. ASSESSMENT: 1. Morbid obesity due to excess calories. 2. Body mass index reduced from 71.4 down to 67.6. 3. Obstructive sleep apnea, moderate. 4. Diabetes type 2. 5. Elevated AST, ALT. 6. Fatty liver disease. 7. Hypertriglyceridemia. 8. Osteoarthritis of the lower back. 9. Osteoarthritis of the bilateral knees. 10. Dietary surveillance and counseling. 11. Panniculitis. 12. Vitamin D deficiency. 13. Hypertension. 14. Osteoarthritis bilateral hips. 15. Gastroesophageal reflux disease. 16. Status post gastric bypass. PLAN: 1. Recommend ablating at least 4 times daily. 2. Start protein shakes at least 75 g daily. 3. Fluid intake of 64 ounces daily. 4. Follow-up in [place] in 1 week. Objective - Vital Signs Vital signs: Vital Signs Temp 97.4 F L 03/11/17 11:05 Pulse 78 03/11/17 11:05 Resp 16 03/11/17 11:05 BP 121/83 03/11/17 11:05 Pulse Ox Intake & Output 03/10/17 03/11/17 03/11/17 18:59 06:59 18:59 Weight 150.593 kg
== END | disposition home or self-care (01) ==
LOC: BARWHC3 10:35
PROVIDERS: ATTEND Surgery Plastic and Reconstructive Surgery
DX: E66.01 Morbid (severe) obesity due to excess calories (principal); G47.33 Obstructive sleep apnea (adult) (pediatric); E11.9 Type 2 diabetes mellitus without complications; K76.0 Fatty (change of) liver, not elsewhere classified; R74.8 Abnormal levels of other serum enzymes; E78.1 Pure hyperglyceridemia; M47.816 Spondylosis without myelopathy or radiculopathy, lumbar region; M17.0 Bilateral primary osteoarthritis of knee; M79.3 Panniculitis, unspecified; E55.9 Vitamin D deficiency, unspecified; I10 Essential (primary) hypertension; M16.0 Bilateral primary osteoarthritis of hip; K21.9 Gastro-esophageal reflux disease without esophagitis; Z71.3 Dietary counseling and surveillance; Z68.44 Body mass index [BMI] 60.0-69.9, adult; Z98.84 Bariatric surgery status
CPT/HCPCS: 99211

== ENCOUNTER → 2017-05-23 | Outpatient (CLI) | payer MEDICARE, OTHER ==
[2017-05-23 11:01] LABS: Anisocytosis Slight; CH 27.9; CHCM 31.8; HCT 44.9 % (34.0-46.0); HDW 3.14; HGB 14.2 gm/dL (11.4-16.0); Hypochromasia Slight; MCH 27.8 pg (25.0-35.0); MCHC 31.5 g/dL (31.0-37.0); MCV 88.3 fL (80.0-100.0); Mean Platelet Volume 8.9; RBC 5.09 m/uL (3.80-5.40); WBC 4.5 k/uL (3.8-10.6)
[2017-05-23 11:12] LABS: INR 1.5 (<1.2); Partial Thromboplastin Time 24.7 sec (22.0-30.0); Prothrombin Time 14.6 sec (9.0-12.0)
[2017-05-23 11:13] LABS: ALT 50 U/L (9-52); AST 42 U/L (14-36); Alkaline Phosphatase 71 U/L (38-126); Anion Gap 11 mmol/L; Blood Urea Nitrogen 11 mg/dL (7-17); Calcium 9.1 mg/dL (8.4-10.2); Carbon Dioxide 25 mmol/L (22-30); Chloride 105 mmol/L (98-107); Cholesterol 113 mg/dL (<200); Glucose 102 mg/dL (74-99); HDL Cholesterol 36 mg/dL (40-60); Magnesium 1.8 mg/dL (1.6-2.3); Non-African American GFR(MDRD) >60 (>60 ml/min/1.73 sqM); Phosphorus 3.7 mg/dL (2.5-4.5); Potassium 3.8 mmol/L (3.5-5.1); Sodium 141 mmol/L (137-145); Total Bilirubin 0.6 mg/dL (0.2-1.3); Total Protein 6.3 g/dL (6.3-8.2)
[2017-05-23 15:54] LABS: Iron Saturation 16.78 (12.00-45.00)
[2017-05-28 17:56] LABS: Selenium 87 mcg/L (63-160)
== END | disposition home or self-care (01) ==
LOC: LABWHC1 10:20
PROVIDERS: ATTEND Surgery Plastic and Reconstructive Surgery
DX: E66.01 Morbid (severe) obesity due to excess calories (principal); E21.1 Secondary hyperparathyroidism, not elsewhere classified; D50.9 Iron deficiency anemia, unspecified; K90.9 Intestinal malabsorption, unspecified; E55.9 Vitamin D deficiency, unspecified; K74.1 Hepatic sclerosis; N19 Unspecified kidney failure; K50.90 Crohn's disease, unspecified, without complications
CPT/HCPCS: 36415; 80053; 80061; 82306; 82525; 82607; 82728; 82746; 83036; 83540; 83550; 83735; 83970; 84100; 84134; 84255; 84425; 84443; 84590; 84630; 85027; 85610; 85730

== ENCOUNTER 2017-06-26 16:18 | Emergency (ER) | payer MEDICARE, OTHER ==
[2017-06-26] MEDS ORDERED: IOHEXOL 350 MG/ML 25 ML BOTTLE (ORAL USE) PO PRN (17:12)
[2017-06-26] MEDS ORDERED: RX INFO: IV CONTRAST WAS GIVEN 1 EACH MISC MISCELLANE PRN (17:12)
[2017-06-26] MEDS ORDERED: SODIUM CHLORIDE 0.9% 2,000 ML IV STA (17:12)
--- NOTE | 2017-06-26 17:24 | ED ---
Abdominal Pain HPI - General Chief Complaint: Abdominal Pain Stated Complaint: Abd Pain Time Seen by Provider: 06/26/17 17:00 Source: patient Mode of arrival: ambulatory Limitations: no limitations - History of Present Illness Initial Comments: 36-year-old female patient presented to the emergency department today for evaluation of abdominal pain and vomiting for the last 3 days. Patient states that symptoms started after she experienced a fall on Saturday. States that she fell forward landing on her abdomen. Patient states that she has been unable to keep down any food or fluids. She is concerned because she did undergo sleeve gastrectomy with Dr. Presley in February 2017. Patient denies any hematemesis, diarrhea, constipation, hematochezia, or melena. She denies any fever or chills with this. States that she has been ill with upper respiratory symptoms for the last 2 weeks. States that her nasal congestion and cough have persisted. She states that she does have clear sputum production and white nasal discharge. States that she's been having frequent frontal headaches. Patient denies any recent rash, shortness breath, chest pain, back pain, numbness, tingling, dizziness, weakness, hematuria, dysuria, urinary urgency, urinary frequency, visual changes, or any other complaints. - Related Data Home Medications Medication Instructions Recorded Confirmed Famotidine [Pepcid] 40 mg PO DAILY 06/26/17 06/26/17 HYDROcodone/APAP 5-325MG [[place] 1 tab PO BID PRN 06/26/17 06/26/17 5-325] Vitamin A(Unknown Dose) 1 tab PO DAILY 06/26/17 06/26/17 Vitamin D3(Unknown Dose) 1 tab PO DAILY 06/26/17 06/26/17 Previous Rx's Medication Instructions Recorded Amoxic-Pot Clav 875-125Mg 1 tab PO Q12HR #20 tablet 06/26/17 [Augmentin 875-125] HYDROcodone/APAP [[place] Elixir 10 ml PO Q6HR PRN #120 ml 06/26/17 7.5-325Mg/15Ml] Allergies Allergy/AdvReac Type Severity Reaction Status Date / Time No Known Allergies Allergy Verified 06/26/17 16:45 Review of Systems ROS Statement: Those systems with pertinent positive or pertinent negative responses have been documented in the HPI. ROS Other: All systems not noted in ROS Statement are negative. Past Medical History Past Medical History: GERD/Reflux Additional Past Medical History / Comment(s): hiatal hernia and GERD dx with EGD on 08/08/16 History of Any Multi-Drug Resistant Organisms: None Reported Past Surgical History: Bariatric Surgery, Section, Cholecystectomy, Tubal Ligation Additional Past Surgical History / Comment(s): 2 c sect gastric bypass 03-07-17 Past Anesthesia/Blood Transfusion Reactions: No Reported Reaction Additional Past Anesthesia/Blood Transfusion Reaction / Comment(s): No blood transfusion Past Psychological History: No Psychological Hx Reported Smoking Status: Never smoker Past Alcohol Use History: None Reported Past Drug Use History: None Reported - Past Family History Mother Family Medical History: No Reported History Father Family Medical History: Diabetes Mellitus General Exam Limitations: no limitations General appearance: alert, in no apparent distress, other (This is a well- developed, well-nourished female patient in no acute distress. Vital signs upon presentation are temperature 98.3F, pulse 96, respirations 16, blood pressure 141/93, pulse ox 99% on room air.) Eye exam: Present: normal appearance, PERRL, EOMI. Absent: scleral icterus, conjunctival injection, periorbital swelling ENT exam: Present: normal exam, normal oropharynx, mucous membranes moist. Absent: TM's normal bilaterally (Scarring noted to bilateral tympanic membranes) Neck exam: Present: normal inspection. Absent: tenderness, meningismus, lymphadenopathy Respiratory exam: Present: normal lung sounds bilaterally. Absent: respiratory distress, wheezes, rales, rhonchi, stridor Cardiovascular Exam: Present: regular rate, normal rhythm, normal heart sounds. Absent: systolic murmur, diastolic murmur, rubs, gallop, clicks GI/Abdominal exam: Present: soft, tenderness (Lower abdominal tenderness. Mid epigastric tenderness), normal bowel sounds. Absent: distended, guarding, rebound, rigid Back exam: Present: normal inspection. Absent: CVA tenderness (R), CVA tenderness (L) Neurological exam: Present: alert, oriented X3, CN II-XII intact Psychiatric exam: Present: normal affect, normal mood Skin exam: Present: warm, dry, intact, normal color. Absent: rash Course Vital Signs 06/26/17 06/26/17 06/26/17 16:33 18:57 21:11 Temperature 98.3 F 97.8 F 97.9 F Pulse Rate 96 77 73 Respiratory 16 16 16 Rate Blood Pressure 141/93 141/82 142/80 O2 Sat by Pulse 99 99 99 Oximetry Medical Decision Making - Medical Decision Making 36-year-old female patient presented to the emergency department today for complaints of abdominal pain, nausea, and vomiting over the last few days. Patient reported that she had been unwell and had decreased oral intake over the last couple of weeks. Physical examination did reveal some upper abdominal tenderness. Labs reviewed and did reveal 3+ urine ketones. I did call and discuss the case with Dr. Presley who performed the patient's bariatric surgery in February. She was here to evaluate the patient. Patient has been given 3 L of IV fluids for rehydration. Dr. Presley has scheduled a dilation procedure with her on Saturday. Patient will be discharged home at this time to follow-up as directed. She is instructed to return here immediately if her symptoms worsen, change, or she develops any new symptoms. She verbalizes understanding and agrees with this plan. - Lab Data Result diagrams: 06/26/17 17:32 06/26/17 17:32 Lab Results 06/26/17 06/26/17 06/26/17 Range/Units 17:32 17:32 17:39 WBC 4.8 (3.8-10.6) k/uL RBC 5.16 (3.80-5.40) m/uL Hgb 14.5 (11.4-16.0) gm/dL Hct 46.6 H (34.0-46.0) % MCV 90.3 (80.0-100.0) fL MCH 28.1 (25.0-35.0) pg MCHC 31.1 (31.0-37.0) g/dL RDW 17.6 H (11.5-15.5) % Plt Count 158 (150-450) k/uL Neutrophils % 62 % Lymphocytes % 28 % Monocytes % 6 % Eosinophils % 1 % Basophils % 1 % Neutrophils # 3.0 (1.3-7.7) k/uL Lymphocytes # 1.4 (1.0-4.8) k/uL Monocytes # 0.3 (0-1.0) k/uL Eosinophils # 0.1 (0-0.7) k/uL Basophils # 0.0 (0-0.2) k/uL Anisocytosis Slight Sodium 143 (137-145) mmol/L Potassium 4.0 (3.5-5.1) mmol/L Chloride 104 (98-107) mmol/L Carbon Dioxide 28 (22-30) mmol/L Anion Gap 11 mmol/L BUN 6 L (7-17) mg/dL Creatinine 0.50 L (0.52-1.04) mg/dL Est GFR (MDRD) Af Amer >60 (>60 ml/min/1.73 sqM) Est GFR (MDRD) Non-Af >60 (>60 ml/min/1.73 sqM) Glucose 110 H (74-99) mg/dL Calcium 9.3 (8.4-10.2) mg/dL Total Bilirubin 0.5 (0.2-1.3) mg/dL AST 46 H (14-36) U/L ALT 41 (9-52) U/L Alkaline Phosphatase 74 (38-126) U/L Total Protein 7.0 (6.3-8.2) g/dL Albumin 3.9 (3.5-5.0) g/dL Amylase <30 L (30-110) U/L Lipase 36 (23-300) U/L Urine Color Yellow Urine Appearance Cloudy H (Clear) Urine pH 6.5 (5.0-8.0) Ur Specific [place] 1.017 (1.001-1.035) Urine Protein 1+ H (Negative) Urine Glucose (UA) Negative (Negative) Urine Ketones 3+ H (Negative) Urine Blood Negative (Negative) Urine Nitrite Negative (Negative) Urine Bilirubin Negative (Negative) Urine Urobilinogen 6.0 (<2.0) mg/dL Ur Leukocyte Esterase Negative (Negative) Urine RBC 1 (0-5) /hpf Urine WBC 11 H (0-5) /hpf Ur Squamous Epith Cells 9 H (0-4) /hpf Urine Bacteria Rare H (None) /hpf Hyaline Casts 1 (0-2) /lpf Urine Mucus Moderate H (None) /hpf - Radiology Data Radiology results: report reviewed, image reviewed CT of the abdomen and pelvis with contrast is obtained, report was reviewed in its entirety, impression by Dr. Gordon shows negative computed tomography scan of the abdomen and pelvis. No evidence of dramatic injury. Cervical cyst. There is clearing of the atelectasis and infiltrate at the lung bases compared to old exam. Disposition Clinical Impression: Vomiting, Abdominal pain, Sinus infection Disposition: HOME SELF-CARE Condition: Good Instructions: Acute Nausea and Vomiting (ED) Additional Instructions: Start with a clear liquids and advance as tolerated. Follow-up with your primary care physician and surgeon as soon as possible. Return here immediately for any new, worsening, or concerning symptoms. Prescriptions: Amoxic-Pot Clav 875-125Mg [[place]ment[place] 875-125] 1 tab PO Q12HR #20 tablet HYDROcodone/APAP [[place] Elixir 7.5-325Mg/15Ml] 10 ml PO Q6HR PRN #120 ml PRN Reason: Pain Referrals: None,Stated [Primary Care Provider] - 1-2 days Time of Disposition: 19:48
[2017-06-26 17:46] LABS: Anisocytosis Slight; Basophils % (A) 1 %; Eosinophils # (A) 0.1 k/uL (0-0.7); Eosinophils % (A) 1 %; HCT 46.6 % (34.0-46.0); HGB 14.5 gm/dL (11.4-16.0); Lymphocytes # (A) 1.4 k/uL (1.0-4.8); Lymphocytes % (A) 28 %; MCH 28.1 pg (25.0-35.0); MCHC 31.1 g/dL (31.0-37.0); MCV 90.3 fL (80.0-100.0); Mean Platelet Volume 9.2; Monocytes # (A) 0.3 k/uL (0-1.0); Monocytes % (A) 6 %; Neutrophils % (A) 62 %; Platelet Count 158 k/uL (150-450); RBC 5.16 m/uL (3.80-5.40); RDW 17.6 % (11.5-15.5); WBC 4.8 k/uL (3.8-10.6)
[2017-06-26 17:57] LABS: ALT 41 U/L (9-52); AST 46 U/L (14-36); Albumin 3.9 g/dL (3.5-5.0); Alkaline Phosphatase 74 U/L (38-126); Amylase <30 U/L (30-110); Anion Gap 11 mmol/L; Blood Urea Nitrogen 6 mg/dL (7-17); Calcium 9.3 mg/dL (8.4-10.2); Carbon Dioxide 28 mmol/L (22-30); Chloride 104 mmol/L (98-107); Glucose 110 mg/dL (74-99); Lipase 36 U/L (23-300); Sodium 143 mmol/L (137-145); Total Bilirubin 0.5 mg/dL (0.2-1.3)
[2017-06-26 18:06] LABS: Appearance,Urine Cloudy (Clear); Bacteria,Urine Rare /hpf; Bilirubin,Urine Negative (Negative); Blood,Urine Negative (Negative); Color,Urine Yellow; Glucose,Urine (UA) Negative (Negative); Hyaline Casts,Urine 1 /lpf (0-2); Ketones,Urine 3+ (Negative); Leukocyte Esterase,Urine Negative (Negative); Mucus,Urine Moderate /hpf; Nitrite,Urine Negative (Negative); PH, Urine 6.5 (5.0-8.0); Protein,Urine 1+ (Negative); RBC,Urine 1 /hpf (0-5); Specific Gravity,Urine 1.017 (1.001-1.035); Squamous Epithelial Cell,Urine 9 /hpf (0-4); WBC,Urine 11 /hpf (0-5)
--- NOTE | 2017-06-26 18:14 | CT ---
EXAMINATION TYPE: CT abdomen pelvis w con DATE OF EXAM: 06/26/2017 COMPARISON: 03/09/2017 HISTORY: abdominal pain with nausea and vomiting following fall today. hx of gastric bypass Sept. [address] DLP: 2099.6 mGycm Automated exposure control for dose reduction was used. TECHNIQUE: Helical acquisition of images was performed from the lung bases through the pelvis. CONTRAST: Performed with Oral Contrast and with IV Contrast, patient injected with 100 mL of Omnipaque 300. FINDINGS: Lung bases are clear. There is no pleural effusion. There are clips from bariatric surgery. There are clips from cholecystectomy. Spleen liver pancreas appear normal. Bile ducts are not dilated. There is no adrenal mass. Kidneys show satisfactory contrast opacification. There is a 1 cm cyst in t he posterior right kidney. There is no retroperitoneal adenopathy. There is no ascites. Bladder is al most empty. Uterus is anteverted. There is a large 2 cm cervical cyst. I see no intestinal wall thick ening. There are no dilated loops. Appendix appears normal. There is no ascites. I see no bony destru ctive process. Lumbosacral spine appears normal. IMPRESSION: NEGATIVE CT SCAN OF THE ABDOMEN AND PELVIS. NO EVIDENCE OF TRAUMATIC INJURY. CERVICAL CYST. THERE IS CLEARING OF THE ATELECTASIS AND INFILTRATE AT THE LUNG BASES COMPARED TO OLD EXAM.
[2017-06-26] MEDS ORDERED: SODIUM CHLORIDE 0.9% 1,000 ML IV ONE (19:10)
--- NOTE | 2017-06-26 19:30 | P.GSCN ---
History of Present Illness Consult date: 06/26/17 History of present illness: DATE OF SERVICE: 06/26/2017 CHIEF COMPLAINT: Abdominal pain HISTORY OF PRESENT ILLNESS: Talha Crawford is a 36-year-old female with history of morbid obesity. She is status post gastric bypass on 03/07/2017. At her height of 4 feet 10-3/4 inches, her ideal body weight is 118 pounds. Her highest weight was 350 pounds. Today she comes weighing 259 pounds. She has lost 91 pounds in 8 months. Since her last visit, she has lost 72 pounds in 3.5 months. Body mass index is reduced from 71.4 down to 52.5. She presents emergency room after falling in the last week. Upon further discussion with her family, she has had nausea and vomiting for 2 weeks with pain along the epigastrium including along the umbilicus. She has a moderate- sized pannus/apron that extends down her knees. She was scheduled to be seen in the bariatric center today; however, she was rescheduled. As her pain grew worse, she came to the emergency room. After 1 L fluid IV fluid bolus, her nausea has improved. She still reports some soreness along the epigastrium. Separately, she reports dysphagia to solid foods. Her protein intake has been inadequate. No reports of fevers or chills. She's taking her omeprazole. PAST MEDICAL HISTORY: Please see list. PAST SURGICAL HISTORY: Please see list. MEDICATIONS: Please see list. ALLERGIES: Please see list. SOCIAL HISTORY: No illicit drug use FAMILY HISTORY: Pertinent for morbid obesity. REVIEW OF ORGAN SYSTEMS: CONSTITUTIONAL: Denies any fever or chills. Her highest weight was 350 pounds. Today she comes weighing 259 pounds. She has lost 91 pounds in 8 months. Since her last visit, she has lost 72 pounds in 3.5 months. Body mass index is reduced from 71.4 down to 52.5. HEENT: Denies any trouble with vision, hearing or nosebleeds. Has difficulty swallowing. LYMPHATIC: The patient denies any lumps and bumps around the neck. ENDOCRINE: Denies any thyroid disorders. Resolved blood sugar glucose intolerance. RESPIRATORY: Denies pneumonia. Denies any troubles with breathing or dyspnea on exertion. Has sleep apnea. CARDIOVASCULAR: Denies any chest pain, palpitations, or recent heart attacks. GASTROINTESTINAL: Denies heart burn, constipation or bright red blood per rectum. GENITOURINARY: Denies any blood in urine or increased urinary frequency. MUSCULOSKELETAL: Has back pain, stiffness, joint arthritis. NEUROLOGIC: Denies any numbness or tingling along the distal extremities. No seizure disorders or headaches. PSYCHIATRIC: Has depression. No suidical ideation. HEMATOLOGIC: Denies any abnormal bleeding or bruising. BREASTS: Denies any breast lumps, pain or nipple discharge. PHYSICAL EXAM: VITAL SIGNS: 4 feet, 10-3/4 inch, 259 pounds. Body mass index of 52.5 Vital Signs Temp 97.8 F 06/26/17 18:57 Pulse 77 06/26/17 18:57 Resp 16 06/26/17 18:57 BP 141/82 06/26/17 18:57 Pulse Ox 99 06/26/17 18:57 Intake & Output 06/26/17 06/26/17 06/27/17 06:59 18:59 06:59 Weight 117.934 kg Other: Voiding Method Toilet GENERAL: Well developed and in no acute distress. Pleasant. HEENT: No sclera icterus. Extraocular movements grossly intact. Moist buccal mucosa. Head is atraumatic, normocephalic. Hears conversational speech. No nasal drainage. NECK: Supple without lymphadenopathy. No JV distention. CHEST: Non-labored respirations and equal bilateral excursions. CARDIOVASCULAR: Regular rate and rhythm. Palpable 2+ radial pulses. ABDOMEN: Soft, mild tenderness along the epigastrium. Has umbilical hernia. No incisional ventral hernias. No peritonitis. MUSCULOSKELETAL: No clubbing, cyanosis or edema. NEUROLOGIC: No focal or lateralizing signs. PSYCH: Appropriate affect. Alert and oriented to person, place and time. SKIN: Well-perfused. Good skin turgor. STUDIES: CT of the abdomen and pelvis reviewed demonstrating no acute intra-abdominal process. Findings of umbilical hernia unrelated to her bariatric procedure was identified. No inflammatory changes otherwise noted. I personally saw her computed tomography scan. ASSESSMENT: 1. Morbid obesity due to excess calories. 2. Body mass index reduced from 71.4 down to 52.5 3. Obstructive sleep apnea, moderate, improved 4. Diabetes type 2, resolved. 5. Status post fall. 6. Epigastric abdominal pain. 7. Umbilical hernia not related to bariatric procedure. 8. Osteoarthritis of the lower back. 9. Osteoarthritis of the bilateral knees. 10. Dietary surveillance and counseling. 11. Panniculitis. 12. Dysphagia to solid foods 13. Hypertension. 14. Osteoarthritis bilateral hips. 15. Gastroesophageal reflux disease. 16. Status post gastric bypass. PLAN: 1. Recommend at least 3 L normal saline as she has nausea and in adequate oral intake for over 2 weeks. 2. Recommend upper endoscopy with balloon dilatation for probable gastric stenosis and dysphagia 3. Continue omeprazole. 4. Liquid diet in the interim. 5. Recommend protein shakes goal protein intake over 75 g daily. Past Medical History Past Medical History: GERD/Reflux Additional Past Medical History / Comment(s): hiatal hernia and GERD dx with EGD on 08/08/16 History of Any Multi-Drug Resistant Organisms: None Reported Past Surgical History: Bariatric Surgery, Section, Cholecystectomy, Tubal Ligation Additional Past Surgical History / Comment(s): 2 c sect gastric bypass 03-07-17 Past Anesthesia/Blood Transfusion Reactions: No Reported Reaction Additional Past Anesthesia/Blood Transfusion Reaction / Comm: No blood transfusion Past Psychological History: No Psychological Hx Reported Smoking Status: Never smoker Past Alcohol Use History: None Reported Past Drug Use History: None Reported - Past Family History Mother Family Medical History: No Reported History Father Family Medical History: Diabetes Mellitus Medications and Allergies Home Medications Medication Instructions Recorded Confirmed Type Famotidine [Pepcid] 40 mg PO DAILY 06/26/17 06/26/17 History HYDROcodone/APAP 5-325MG [[place] 1 tab PO BID PRN 06/26/17 06/26/17 History 5-325] Vitamin A(Unknown Dose) 1 tab PO DAILY 06/26/17 06/26/17 History Vitamin D3(Unknown Dose) 1 tab PO DAILY 06/26/17 06/26/17 History Allergies Allergy/AdvReac Type Severity Reaction Status Date / Time No Known Allergies Allergy Verified 06/26/17 16:45 Surgical - Exam Vital Signs Temp Pulse Resp BP Pulse Ox 98.3 F 96 16 141/93 99 06/26/17 16:33 06/26/17 16:33 06/26/17 16:33 06/26/17 16:33 06/26/17 16:33 Results - Labs 06/26/17 17:32 06/26/17 17:32 Abnormal Lab Results - Last 24 Hours (Table) 06/26/17 06/26/17 06/26/17 Range/Units 17:32 17:32 17:39 Hct 46.6 H (34.0-46.0) % RDW 17.6 H (11.5-15.5) % BUN 6 L (7-17) mg/dL Creatinine 0.50 L (0.52-1.04) mg/dL Glucose 110 H (74-99) mg/dL AST 46 H (14-36) U/L Amylase <30 L (30-110) U/L Urine Appearance Cloudy H (Clear) Urine Protein 1+ H (Negative) Urine Ketones 3+ H (Negative) Urine WBC 11 H (0-5) /hpf Ur Squamous Epith Cells 9 H (0-4) /hpf Urine Bacteria Rare H (None) /hpf Urine Mucus Moderate H (None) /hpf Diabetes panel 06/26/17 Range/Units 17:32 Sodium 143 (137-145) mmol/L Potassium 4.0 (3.5-5.1) mmol/L Chloride 104 (98-107) mmol/L Carbon Dioxide 28 (22-30) mmol/L BUN 6 L (7-17) mg/dL Creatinine 0.50 L (0.52-1.04) mg/dL Glucose 110 H (74-99) mg/dL Calcium 9.3 (8.4-10.2) mg/dL AST 46 H (14-36) U/L ALT 41 (9-52) U/L Alkaline Phosphatase 74 (38-126) U/L Total Protein 7.0 (6.3-8.2) g/dL Albumin 3.9 (3.5-5.0) g/dL Calcium panel 06/26/17 Range/Units 17:32 Calcium 9.3 (8.4-10.2) mg/dL Albumin 3.9 (3.5-5.0) g/dL Pituitary panel 06/26/17 Range/Units 17:32 Sodium 143 (137-145) mmol/L Potassium 4.0 (3.5-5.1) mmol/L Chloride 104 (98-107) mmol/L Carbon Dioxide 28 (22-30) mmol/L BUN 6 L (7-17) mg/dL Creatinine 0.50 L (0.52-1.04) mg/dL Glucose 110 H (74-99) mg/dL Calcium 9.3 (8.4-10.2) mg/dL Adrenal panel 06/26/17 Range/Units 17:32 Sodium 143 (137-145) mmol/L Potassium 4.0 (3.5-5.1) mmol/L Chloride 104 (98-107) mmol/L Carbon Dioxide 28 (22-30) mmol/L BUN 6 L (7-17) mg/dL Creatinine 0.50 L (0.52-1.04) mg/dL Glucose 110 H (74-99) mg/dL Calcium 9.3 (8.4-10.2) mg/dL Total Bilirubin 0.5 (0.2-1.3) mg/dL AST 46 H (14-36) U/L ALT 41 (9-52) U/L Alkaline Phosphatase 74 (38-126) U/L Total Protein 7.0 (6.3-8.2) g/dL Albumin 3.9 (3.5-5.0) g/dL - Imaging CT scan - abdomen: report reviewed, image reviewed CT scan - pelvis: report reviewed, image reviewed Assessment and Plan (1) Epigastric abdominal pain Current Visit: Yes Status: Acute Code(s): R10.13 - EPIGASTRIC PAIN SNOMED Code(s): 07832259 (2) Dehydration Current Visit: Yes Status: Acute Code(s): E86.0 - DEHYDRATION SNOMED Code( s): 41316764 (3) Nausea & vomiting Current Visit: Yes Status: Acute Code(s): R11.2 - NAUSEA WITH VOMITING, UNSPECIFIED SNOMED Code(s): 70691998 (4) Umbilical hernia Current Visit: Yes Status: Acute Code(s): K42.9 - UMBILICAL HERNIA WITHOUT OBSTRUCTION OR GANGRENE SNOMED Code(s): 394736882
[2017-06-26 23:33] VITALS: BP 142/80; PULSE 73; RESP 16; TEMP 97.9
== END 2017-06-26 21:11 | disposition home or self-care (01) ==
LOC: EC 16:18
DX: R10.13 Epigastric pain (principal); R10.30 Lower abdominal pain, unspecified; R11.10 Vomiting, unspecified; L98.8 Other specified disorders of the skin and subcutaneous tissue; K21.9 Gastro-esophageal reflux disease without esophagitis; Z79.899 Other long term (current) drug therapy; Z98.84 Bariatric surgery status
CPT/HCPCS: 36415; 80053; 82150; 83690; 85025; 81001; 74177; 99284; 96360; 96361; Q9967

== ENCOUNTER 2017-06-28 11:39 | Day surgery (SDC) | payer MEDICARE, OTHER ==
--- NOTE | 2017-06-28 12:03 | P.GSHP ---
History of Present Illness H&P Date: 06/28/17 CHIEF COMPLAINT: Esophageal stricture HISTORY OF PRESENT ILLNESS: The patient is a 36--year-old female who presents reports dysphagia. Upper endoscopy was offered for further evaluation and management. PAST MEDICAL HISTORY: Please see list. PAST SURGICAL HISTORY: Please see list. MEDICATIONS: Please see list. ALLERGIES: Please see list. SOCIAL HISTORY: No illicit drug use FAMILY HISTORY: No reports of Crohn disease or ulcerative colitis. REVIEW OF ORGAN SYSTEMS: CONSTITUTIONAL: No reports of fevers or chills. GI: Denies any blood in stools or constipation. PHYSICAL EXAM: VITAL SIGNS: Stable GENERAL: Well-developed and pleasant in no acute distress. HEENT: No scleral icterus. Extraocular movements grossly intact. Moist buccal mucosa. NECK: Supple without lymphadenopathy. CHEST: Unlabored respirations. Equal bilateral excursions. CARDIOVASCULAR: Regular rate and rhythm. Distal 2+ pulses. ABDOMEN: Soft, nondistended. MUSCULOSKELETAL: No clubbing, cyanosis, or edema. ASSESSMENT: 1. Esophageal stricture PLAN: 1. Recommend proceeding with an upper endoscopy with dilation. Past Medical History Past Medical History: GERD/Reflux Additional Past Medical History / Comment(s): hiatal hernia and GERD dx with EGD on 08/08/16 History of Any Multi-Drug Resistant Organisms: None Reported Past Surgical History: Bariatric Surgery, Section, Cholecystectomy, Tubal Ligation Additional Past Surgical History / Comment(s): 2 c sect gastric bypass 03-07-17 Past Anesthesia/Blood Transfusion Reactions: No Reported Reaction Additional Past Anesthesia/Blood Transfusion Reaction / Comment(s): No blood transfusion Past Psychological History: No Psychological Hx Reported Smoking Status: Never smoker Past Alcohol Use History: None Reported Past Drug Use History: None Reported - Past Family History Mother Family Medical History: No Reported History Father Family Medical History: Diabetes Mellitus Medications and Allergies Home Medications Medication Instructions Recorded Confirmed Type Amoxic-Pot Clav 875-125Mg 1 tab PO Q12HR #20 tablet 06/26/17 Rx [Augmentin 875-125] Famotidine [Pepcid] 40 mg PO DAILY 06/26/17 06/26/17 History HYDROcodone/APAP 5-325MG [[place] 1 tab PO BID PRN 06/26/17 06/26/17 History 5-325] HYDROcodone/APAP [[place] Elixir 10 ml PO Q6HR PRN #120 ml 06/26/17 Rx 7.5-325Mg/15Ml] Vitamin A(Unknown Dose) 1 tab PO DAILY 06/26/17 06/26/17 History Vitamin D3(Unknown Dose) 1 tab PO DAILY 06/26/17 06/26/17 History Allergies Allergy/AdvReac Type Severity Reaction Status Date / Time No Known Allergies Allergy Verified 06/26/17 16:45
[2017-06-28 12:13] VITALS: TEMP 98.2
[2017-06-28] MEDS ORDERED: LACTATED RINGERS 1,000 ML IV ONE (12:28)
[2017-06-28] MEDS ORDERED: LIDOCAINE 1% 20 ML VIAL (10MG/ML) FOR IV START INTRADERMA ONE (12:30)
[2017-06-28] MEDS ORDERED: LIDOCAINE 1% INJ 10MG/ML (20 ML MDV) ONE (14:48)
[2017-06-28] MEDS ORDERED: MIDAZOLAM 2 MG/2 ML VIAL ONE (14:48)
[2017-06-28] MEDS ORDERED: ONDANSETRON 4 MG/2 ML VIAL ONE (14:48)
[2017-06-28] MEDS ORDERED: GLYCOPYRROLATE 0.2 MG/ML 2 ML VIAL ONE (14:48)
[2017-06-28] MEDS ORDERED: fentaNYL (PF) 50 MCG/ML 2 ML AMP ONE (14:48)
[2017-06-28] MEDS ORDERED: PROPOFOL 10 MG/ML 20 ML VIAL IV ONE (14:48)
[2017-06-28 15:23] VITALS: RESP 16
[2017-06-28 15:39] VITALS: BP 128/79; PULSE 83
--- NOTE | 2017-07-01 12:28 | P.PCN ---
Date of Procedure: 06/28/17 Description of Procedure: PREOPERATIVE DIAGNOSIS: Dysphagia. Nausea with vomiting. POSTOPERATIVE DIAGNOSIS: Dysphagia. Morbid obesity. Gastrojejunal stricture without chronic ulcer without perforation OPERATION: Esophagogastrojejunoscopy with balloon dilatation from 9.5 to 15 mm. SURGEON: Melanie Presley MD ANESTHESIA: MAC. INDICATIONS: The patient is a 53-year-old female who presents with a history of dysphagia, including new-onset nausea and vomiting. Benefits and risks of the procedure were described. Informed consent was obtained. DESCRIPTION: The patient was brought into the endoscopy suite and laid in the left lateral decubitus position. After a timeout was confirmed, the procedure was initiated. An Olympus gastroscope was passed along the posterior oropharynx down to the distal esophagus where the squamocolumnar junction was unremarkable. The gastric pouch was entered. A gastrojejunal stricture of 12 mm was found as the adult gastroscope was 9.5 mm in size. A SparCode balloon dilator was placed through the scope. Final insufflation up to 20 mm was performed with a total of 2 minutes. The scope was advanced up to 60 cm from the incisors into the Dat limb. The mucosa of the gastrojejunal anastomosis was intact. However chronic gastrojejunal marginal ulcer was encountered. No full-thickness injury was encountered. The GI tract was desufflated. The patient tolerated the procedure well. FINDINGS: Squamocolumnar junction unremarkable at 37 cm. Stricture of approximately 9.5 mm encountered. No chronic gastrojejunal ulceration encountered. Successful balloon dilatation to 15 mm. RECOMMENDATIONS: Liquid diet. Upper endoscopy as needed. Plan - Discharge Summary New Discharge Prescriptions: New Omeprazole 40 mg PO DAILY #90 capsule.dr Discontinued Famotidine [Pepcid] 40 mg PO DAILY No Action Vitamin A(Unknown Dose) 1 tab PO DAILY HYDROcodone/APAP 5-325MG [[place] 5-325] 1 tab PO BID PRN PRN Reason: Pain Vitamin D3(Unknown Dose) 1 tab PO DAILY Amoxic-Pot Clav 875-125Mg [Augmentin 875-125] 1 tab PO Q12HR #20 tablet HYDROcodone/APAP [[place] Elixir 7.5-325Mg/15Ml] 10 ml PO Q6HR PRN #120 ml PRN Reason: Pain Discharge Medication List Amoxic-Pot Clav 875-125Mg [Augmentin 875-125] 1 tab PO Q12HR #20 tablet [Rx] HYDROcodone/APAP 5-325MG [[place] 5-325] 1 tab PO BID PRN 06/26/17 [History] HYDROcodone/APAP [[place] Elixir 7.5-325Mg/15Ml] 10 ml PO Q6HR PRN #120 ml [Rx] Vitamin A(Unknown Dose) 1 tab PO DAILY 06/26/17 [History] Vitamin D3(Unknown Dose) 1 tab PO DAILY 06/26/17 [History] Omeprazole 40 mg PO DAILY #90 capsule. 06/28/17 [Rx] Follow up Appointment(s)/Referral(s): Melanie Presley MD [STAFF PHYSICIAN] - 07/02/17 11:00 am Patient Instructions/Handouts: *[facility] - (Anesthesia) Endoscopy Discharge Instructions, Upper Endoscopy (DC), Esophageal Dilation (DC) Discharge Disposition: HOME SELF-CARE
--- NOTE | 2017-07-01 12:38 | P.PCN ---
Date of Procedure: 07/01/17 Description of Procedure: PREOPERATIVE DIAGNOSIS: Dysphagia. Nausea with vomiting. POSTOPERATIVE DIAGNOSIS: Dysphagia. Morbid obesity. Gastrojejunal stricture without chronic ulcer without perforation Gastritis along gastric pouch. OPERATION: Esophagogastrojejunoscopy with balloon dilatation from 15 to 20 mm. Esophagogastrojejunoscopy with cold forceps biopsies as along gastric pouch. SURGEON: Melanie Presley MD ANESTHESIA: MAC. INDICATIONS: The patient is a 36-year-old female who presents with a history of dysphagia, including new-onset nausea and vomiting. Benefits and risks of the procedure were described. Informed consent was obtained. DESCRIPTION: The patient was brought into the endoscopy suite and laid in the left lateral decubitus position. After a timeout was confirmed, the procedure was initiated. An Olympus gastroscope was passed along the posterior oropharynx down to the distal esophagus where the squamocolumnar junction was unremarkable. The gastric pouch was entered. A gastrojejunal stricture of 15 mm was found as the adult gastroscope was 9.5 mm in size. A [employer] balloon dilator was placed through the scope. Final insufflation up to 20 mm was performed with a total of 2 minutes. The scope was advanced up to 60 cm from the incisors into the Dat limb. The mucosa of the gastrojejunal anastomosis was intact. No chronic gastrojejunal marginal ulcer was encountered. No full-thickness injury was encountered. The GI tract was desufflated. The patient tolerated the procedure well. FINDINGS: Stricture of approximately 15 mm encountered. No chronic gastrojejunal ulceration encountered. Successful balloon dilatation to 20 mm. RECOMMENDATIONS: Liquid diet. Upper endoscopy as needed.
== END 2017-06-28 16:37 | disposition home or self-care (01) ==
LOC: ORWHC2ENDO 11:39
PROVIDERS: ATTEND Surgery Plastic and Reconstructive Surgery
DX: K31.89 Other diseases of stomach and duodenum (principal); Z98.84 Bariatric surgery status; K29.50 Unspecified chronic gastritis without bleeding; K21.9 Gastro-esophageal reflux disease without esophagitis; E66.01 Morbid (severe) obesity due to excess calories; Z68.43 Body mass index [BMI] 50.0-59.9, adult; I10 Essential (primary) hypertension; E11.9 Type 2 diabetes mellitus without complications; G47.33 Obstructive sleep apnea (adult) (pediatric); Z79.2 Long term (current) use of antibiotics; Z79.899 Other long term (current) drug therapy
CPT/HCPCS: 81025; 88305; 88342; 43239; 43245; J2250; J2405; J2001; J3010; J2704; C1726; 43249

== ENCOUNTER → 2017-07-22 | Outpatient (CLI) | payer MEDICARE, OTHER | END | disposition home or self-care (01) | LOC: LABPAT 12:18 | PROVIDERS: ATTEND Surgery Plastic and Reconstructive Surgery | DX: Z01.812 Encounter for preprocedural laboratory examination (principal); K21.9 Gastro-esophageal reflux disease without esophagitis | CPT/HCPCS: 36415; 86850; 86900; 86901 ==

== ENCOUNTER 2017-07-25 10:02 | Day surgery (SDC) | payer MEDICARE, OTHER ==
[2017-07-18 15:51] VITALS: BMI 51.6
[~2017-07-25 10:02] MED LIST changes: +HEPARIN SODIUM,PORCINE 5,000 UNIT/ML 1 ML VIAL SQ ONE; -HYDROmorphone 1 MG/ML 1 ML SYRINGE IVP PRN; +MIDAZOLAM 2 MG/2 ML VIAL IV PRN; +ONDANSETRON 4 MG/2 ML VIAL IVP ONE; -ceFAZolin 3 GM in SODIUM CHLORIDE 0.9% 100 ML IVPB ONE; +ceFAZolin IN SWFI 2 GM/20 ML SYRINGE IVP ONE
[2017-07-25 10:26] VITALS: RESP 16
--- NOTE | 2017-07-25 10:48 | P.GSHP ---
History of Present Illness H&P Date: 07/25/17 CHIEF COMPLAINT: Ventral hernia. HISTORY OF PRESENT ILLNESS: The patient is a 36-year-old female who presents with a history of swelling along the upper abdomen. Findings were consistent with hernia initial presentation. Now she presents for further evaluation and management. PAST MEDICAL HISTORY: Please see list. PAST SURGICAL HISTORY: Please see list. MEDICATIONS: Please see list. ALLERGIES: Please see list. SOCIAL HISTORY: No illicit drug use FAMILY HISTORY: No reports of Crohn disease or ulcerative colitis. REVIEW OF ORGAN SYSTEMS: CONSTITUTIONAL: No reports of fevers or chills. GI: Denies any blood in stools or constipation. PHYSICAL EXAM: VITAL SIGNS: Stable GENERAL: Well-developed pleasant female in no acute distress. HEENT: No scleral icterus. Extraocular movements grossly intact. Moist buccal mucosa. NECK: Supple without lymphadenopathy. CHEST: Unlabored respirations. Equal bilateral excursions. CARDIOVASCULAR: Regular rate and rhythm. Distal 2+ pulses. ABDOMEN: Soft, nondistended. Palpable defect of the epigastrium over umbilicus. MUSCULOSKELETAL: No clubbing, cyanosis, or edema. ASSESSMENT: 1. Ventral hernia. PLAN: 1. Recommend proceeding with a diagnostic laparoscopy with the ventral hernia repair with mesh. 2. Benefits and risks of surgical intervention was discussed including possibility of open technique. 3. May need overnight observation. 4. DVT prophylaxis. 5. Antibiotic prophylaxis. Past Medical History Past Medical History: GERD/Reflux, Sleep Apnea/CPAP/BIPAP Additional Past Medical History / Comment(s): hiatal hernia and GERD dx with EGD on 08/08/16. USES C PAP MACHINE History of Any Multi-Drug Resistant Organisms: None Reported Past Surgical History: Adenoidectomy, Bariatric Surgery, Section, Cholecystectomy, Tonsillectomy, Tubal Ligation Additional Past Surgical History / Comment(s): 2 c sect ,gastric bypass 03-07-17 Past Anesthesia/Blood Transfusion Reactions: No Reported Reaction Additional Past Anesthesia/Blood Transfusion Reaction / Comment(s): No blood transfusion Smoking Status: Never smoker - Past Family History Mother Family Medical History: No Reported History Father Family Medical History: Diabetes Mellitus Medications and Allergies Home Medications Medication Instructions Recorded Confirmed Type HYDROcodone/APAP 5-325MG [[place] 1 tab PO BID PRN 06/26/17 07/18/17 History 5-325] Omeprazole 40 mg PO DAILY #90 capsule. 06/28/17 07/18/17 Rx Allergies Allergy/AdvReac Type Severity Reaction Status Date / Time No Known Allergies Allergy Verified 07/25/17 10:11 Surgical - Exam Vital Signs Temp Pulse Resp BP Pulse Ox 97.4 F L 88 16 139/74 100 07/25/17 10:24 07/25/17 10:24 07/25/17 10:24 07/25/17 10:24 07/25/17 10:24
[2017-07-25] MEDS ORDERED: fentaNYL (PF) 50 MCG/ML 2 ML AMP ONE (10:49)
[2017-07-25] MEDS ORDERED: NEOSTIGMINE 1 MG/ML 10 ML VIAL ONE (10:49)
[2017-07-25] MEDS ORDERED: GLYCOPYRROLATE 0.2 MG/ML 2 ML VIAL ONE (10:49)
[2017-07-25] MEDS ORDERED: KETOROLAC 30 MG/ML 1 ML VIAL ONE (10:49)
[2017-07-25] MEDS ORDERED: ROCURONIUM BROMIDE 10 MG/ML 10 ML VIAL IV ONE (10:49)
[2017-07-25] MEDS ORDERED: PROPOFOL 10 MG/ML 20 ML VIAL IV ONE (10:49)
[2017-07-25] MEDS ORDERED: MIDAZOLAM 2 MG/2 ML VIAL ONE (10:49)
[2017-07-25] MEDS ORDERED: LIDOCAINE 1% INJ 10MG/ML (20 ML MDV) ONE (10:49)
[2017-07-25] MEDS ORDERED: SUCCINYLCHOLINE CHLORIDE 100 MG/5 ML SYR IV ONE (10:49)
[2017-07-25 10:57] LABS: INR 1.4 (<1.2); Prothrombin Time 13.2 sec (9.0-12.0)
[2017-07-25] MEDS ORDERED: BUPIVACAINE (PF) 0.25% 30 ML VIAL SQ ONE (11:39)
--- NOTE | 2017-07-25 12:09 | P.PCN ---
Date of Procedure: 07/25/17 Preoperative Diagnosis: Umbilical ventral hernia, incarcerated Postoperative Diagnosis: Same, incisional ventral hernia from previous Procedure(s) Performed: Robotic-assisted umbilical hernia and incisional ventral hernia repair 2 Anesthesia: GETA, local Surgeon: Melanie Presley Estimated Blood Loss (ml): 5 Pathology: none sent Condition: stable Disposition: floor Operative Findings: Incisional hernia from previous along the right lower abdomen closed, incarcerated umbilical hernia also closed
[2017-07-25 12:26] VITALS: TEMP 97
[2017-07-25] MEDS ORDERED: LACTATED RINGERS 1,000 ML IV ONE (12:31)
[2017-07-25] MEDS: HYDROmorphone 0.5 MG/0.5 ML SYRINGE IVP PRN ×2 (12:56→13:02)
[2017-07-25 14:20] VITALS: BP 133/75; PULSE 75
--- NOTE | 2017-08-21 20:36 | P.OP ---
Date of Procedure: 07/25/17 Description of Procedure: SURGEON: AMADOU PRESLEY MD DIGITAL MARKETING PROJECT MANAGER: Jesi Agustin. PREOPERATIVE DIAGNOSES: 1. Incarcerated umbilical ventral hernia. 2. Periumbilical pain. 3. Morbid obesity due to excess calories 4. Body mass index 51 5. Status post gastric bypass POSTOPERATIVE DIAGNOSES: 1. Incarcerated umbilical ventral hernia, initial. 2. Periumbilical pain. 3. Morbid obesity due to excess calories 4. Body mass index 51 5. Status post gastric bypass 6. Initial incisional ventral hernia, incarcerated from previous Pfannenstiel incision from . 7. Intra-abdominal adhesions greater omentum to abdominal wall of the pelvis. OPERATION: 1. Robotic-assisted da Nikolai Si laparoscopic reduction and repair of incarcerated umbilical ventral hernia, 3 cm without mesh 2. Robotic-assisted da Nikolai Si laparoscopic reduction and repair of incarcerated incisional hernia and is still incision from previous without mesh ANESTHESIA: GETA, local ESTIMATED BLOOD LOSS: 5 mL. SPECIMENS: None. COMPLICATIONS: None. Pathology: none sent Condition: stable Disposition: floor INDICATIONS: The patient is a 37-year-old female who comes in with acute incarceration of umbilical hernia. Surgical intervention with laparoscopic versus robotic and open techniques were reviewed. Placement of mesh was also reviewed. Benefits and risks were thoroughly described. Informed consent was obtained. DESCRIPTION OF PROCEDURE: The patient was brought into the operating room and laid in supine position. After general induction, the abdomen had been prepped and draped in standard sterile fashion. Ioban draping was also placed. Prior to incision, a timeout protocol was confirmed with surgical team regarding the patient's name including procedures to be performed. The robot was primed prior to the procedure. Initial incision was made with #11 blade along the left upper quadrant after anesthetizing the skin. A 0 degree 5 mm laparoscopic trocar entry was performed. Diagnostic laparoscopy demonstrated no small bowel pathology. An incarcerated incisional hernia of the lower pelvis was identified from her previous involving the greater omentum. Separately, incarcerated umbilical hernia 3 cm was also identified involving the greater omentum. A 12 mm trocar was placed along epigastrium 10 cm above the umbilicus. An 8 mm port was placed along the right upper quadrant under direct localization. The 5-mm port was exchanged for an 8 mm robotic port. Placements of the ports were 10 to 15 cm from the target anatomy and at least 10 cm apart. The 5 mm trocar was exchanged for an 8 mm port The da Nikolai SI robot was primed, prepped, draped then docked along the right side of the patient. I then sat at the robot Da Nikolai SI console where working arms of the robot including scissor connected to cautery and graspers were placed by research assistant professor. Initial attention was brought to the anterior abdominal wall whereby upon careful observation a 3-cm was at the umbilicus found was incarcerated with omentum. Using dissecting grasper as well as electro-Bovie cautery, the peritoneum was scored. The incarcerated fat of the umbilicus was delivered into the abdominal cavity. The size of the defect was 3 cm upon measurement. The fascia was cleaned of peritoneal. Currently, a 6 x 4 cm incisional hernia from her previous was also identified. Next, hemostasis was checked with cautery. The ventral defect were closed using a running stitch of 0 V-Loc suture. Additional 0-VLOCs were used to imbricate the incisional ventral hernia as well as the umbilical hernia. The V-Loc sutures were cut with robotic scissors to the level of the fascia and extracted from the abdominal. Mesh repair was avoided as the patient is undergoing moderate weight loss and had recent gastric bypass. The da Nikolai SI robot was undocked from the patient. I re-scrubbed into the case for closure of incisions. The fascia of the 12-mm port was reapproximated using 0 Vicryl and a Rafa Hicks. The incisions were reapproximated using 4-0 Monocryl in an interrupted subcuticular fashion. Dermabond was applied to the skin. At the umbilicus, an umbilical dressing using sterile cotton ball was placed followed by Tegaderm as a pressure dressing. All instruments and pneumoperitoneum were evacuated from the abdominal cavity. At the end of the procedure, needle, sponge, and instrument count had been verified correct by surgical services assistant. The patient was taken to the postanesthesia care unit in stable condition with abdominal binder. Intraoperative films were described to the patient's family who were pleased with the level of care. FINDINGS: 1. Incisional hernia incarcerated from previous along the right lower abdomen closed 2. Incarcerated umbilical hernia also closed Plan - Discharge Summary Discharge Rx Participant: Yes New Discharge Prescriptions: No Action HYDROcodone/APAP 5-325MG [[place] 5-325] 1 tab PO BID PRN PRN Reason: Pain Omeprazole 40 mg PO DAILY #90 capsule. Discharge Medication List HYDROcodone/APAP 5-325MG [[place] 5-325] 1 tab PO BID PRN 06/26/17 [History] Omeprazole 40 mg PO DAILY #90 capsule. 06/28/17 [Rx] Follow up Appointment(s)/Referral(s): Amadou Presley MD [STAFF PHYSICIAN] - 08/01/17 10:20 am Patient Instructions/Handouts: *[facility] - (Anesthesia) Discharge Instructions Outpatient Surgery, Abdominal Binder (GEN), Ventral Hernia Repair ( GEN) Activity/Diet/Wound Care/Special Instructions: No lifting over 4 pounds in 4 weeks. May shower. No bathtub soaks. Discharge Disposition: HOME SELF-CARE
== END 2017-07-25 14:48 | disposition home or self-care (01) ==
LOC: OR 10:02
PROVIDERS: ATTEND Surgery Plastic and Reconstructive Surgery
DX: K43.0 Incisional hernia with obstruction, without gangrene (principal); K42.0 Umbilical hernia with obstruction, without gangrene; K66.0 Peritoneal adhesions (postprocedural) (postinfection); K21.9 Gastro-esophageal reflux disease without esophagitis; E11.9 Type 2 diabetes mellitus without complications; G47.33 Obstructive sleep apnea (adult) (pediatric); Z99.89 Dependence on other enabling machines and devices; E66.01 Morbid (severe) obesity due to excess calories; Z68.43 Body mass index [BMI] 50.0-59.9, adult; Z98.84 Bariatric surgery status; Z79.899 Other long term (current) drug therapy; Z98.51 Tubal ligation status
CPT/HCPCS: 49653; 49655; 81025; 85610; J2250; J1644; J1100; J2710; J2405; J2001; J3010; J1885; J0330; J2704; J1170; J0690; 36415; 86850; 86900; 86901

== ENCOUNTER → 2017-08-01 | Outpatient (CLI) | payer MEDICARE, OTHER ==
[2017-08-01 12:34] VITALS: BMI 51.2
[2017-08-01 12:54] VITALS: BP 127/87; PULSE 80; TEMP 97.4
== END | disposition home or self-care (01) ==
LOC: BARWHC3 11:11
PROVIDERS: ATTEND Surgery Plastic and Reconstructive Surgery
DX: E66.01 Morbid (severe) obesity due to excess calories (principal); Z68.43 Body mass index [BMI] 50.0-59.9, adult; Z71.3 Dietary counseling and surveillance
CPT/HCPCS: 97803; G0463; 99211

== ENCOUNTER → 2017-09-04 | Outpatient (CLI) | payer MEDICARE, OTHER ==
[2017-09-04 15:09] VITALS: BP 132/85; PULSE 74; RESP 16; TEMP 97.9; BMI 49.1
[2017-09-04 16:38] LABS: HCT 41.5 % (34.0-46.0); HGB 13.7 gm/dL (11.4-16.0); MCH 29.4 pg (25.0-35.0); Mean Platelet Volume 8.3; Platelet Count 190 k/uL (150-450); RBC 4.66 m/uL (3.80-5.40); RDW 13.7 % (11.5-15.5); WBC 5.9 k/uL (3.8-10.6)
[2017-09-04 16:43] LABS: INR 1.4 (<1.2); Partial Thromboplastin Time 24.5 sec (22.0-30.0); Prothrombin Time 12.8 sec (9.0-12.0)
[2017-09-04 17:21] LABS: ALT 27 U/L (9-52); AST 30 U/L (14-36); Alkaline Phosphatase 85 U/L (38-126); Anion Gap 12 mmol/L; Blood Urea Nitrogen 10 mg/dL (7-17); Calcium 9.6 mg/dL (8.4-10.2); Carbon Dioxide 28 mmol/L (22-30); Chloride 105 mmol/L (98-107); Cholesterol 121 mg/dL (<200); Glucose 90 mg/dL (74-99); HDL Cholesterol 37 mg/dL (40-60); LDL Cholesterol,Calculated 59 mg/dL (0-99); Magnesium 1.8 mg/dL (1.6-2.3); Phosphorus 4.5 mg/dL (2.5-4.5); Potassium 4.4 mmol/L (3.5-5.1); Sodium 145 mmol/L (137-145); Total Bilirubin 0.4 mg/dL (0.2-1.3); Total Protein 6.9 g/dL (6.3-8.2); Triglycerides 127 mg/dL (<150)
[2017-09-05 01:07] LABS: Iron Saturation 9.71 (12.00-45.00)
[2017-09-05 01:16] LABS: Folate, Serum 8.2 ng/mL
[2017-09-05 02:14] LABS: Hemoglobin A1C 5.1 % (4.0-6.0)
[2017-09-05 16:19] LABS: Zinc, Serum 56 ug/dL (60-130)
[2017-09-06 00:54] LABS: Vitamin B1 84 ug/L (38-122)
[2017-09-06 08:41] LABS: Vitamin A 24 ug/dL (38-106)
[2017-09-07 23:22] LABS: Selenium 119 mcg/L (63-160)
--- NOTE | 2017-10-18 07:39 | P.PN ---
Subjective Progress Note Date: 09/04/17 DATE OF SERVICE: 09/04/2017 CHIEF COMPLAINT: Follow gastric bypass. HISTORY OF PRESENT ILLNESS: Talha Crawford is a 37-year-old female with history of morbid obesity. She is status post gastric bypass on 03/07/2017. She is 6 months out. At her height of 4 feet 10-3/4 inches, her ideal body weight is 118 pounds. Her highest weight was 350 pounds. Today she comes weighing 240 pounds. She has lost 110 pounds in 6 months. From her last visit one month ago, she is lost another 11 pounds. Body mass index is reduced from 71.4 down to 49.1. She is 122 pounds overweight. Percent excess weight loss is 47%. She reports doing well. No reports of epigastric abdominal pain. No reports of dumping syndrome. She is tolerating her protein intake. She reports troubles from her moderate-sized pannus which reaches below her knees. PAST MEDICAL HISTORY: 1. Morbid obesity, BMI 71.4 2. Obstructive sleep apnea. 3. Osteoarthritis of the lower back. 4. Osteoarthritis of the bilateral knees. 5. Panniculitis. 6. Diabetes type 2. PAST SURGICAL HISTORY: 1. Cholecystectomy. 2. section. 3. Upper endoscopy. 4. Gastric bypass 5. Umbilical hernia repair MEDICATIONS: 1. Omeprazole 2. Multivitamin 3. [place] 4. Vitamin A 5. Thiamine ALLERGIES: Denies. SOCIAL HISTORY: Lifelong nontobacco user. FAMILY HISTORY: Pertinent for morbid obesity. She denies any Crohn's disease or ulcerative colitis. Also has diabetes in her family. REVIEW OF SYSTEMS: CONSTITUTIONAL: At her height of 4 feet 10-3/4 inches, her ideal body weight is 118 pounds. Her highest weight was 350 pounds. Today she comes weighing 240 pounds. She has lost 110 pounds in 6 months. From her last visit one month ago, she is lost another 11 pounds. Body mass index is reduced from 71.4 down to 49.1. She is 122 pounds overweight. Percent excess weight loss is 47%. MUSCULOSKELETAL: Severe lower back pain and bilateral knee pain, improving. GASTROINTESTINAL: Gastroesophageal reflux disease results. No dumping syndrome. HEENT: Denies any troubles with vision, hearing or dysphagia. ENDOCRINE: No report of thyroid disorder. Diabetes type 2, resolved. RESPIRATORY: Denies any recent dyspnea on exertion. Obstructive sleep apnea resolved. CARDIOVASCULAR: No reports of chest pain or heart attack. NEURO: No reports of stroke or seizure disorders. PSYCH: Denies depression or suicidal ideation. HEMATOLOGIC: Denies any easy bruising or bleeding. SKIN: No cancer. Rash of the pannus. PHYSICAL EXAM: VITAL SIGNS: 4 feet, 10-3/4 inch, 240 pounds. Body mass index of 49.1 Vital Signs Temp 97.9 F 09/04/17 15:06 Pulse 74 09/04/17 15:06 Resp 16 09/04/17 15:06 BP 132/85 09/04/17 15:06 Pulse Ox GENERAL: Well developed and in no acute distress. Pleasant. HEENT: No sclera icterus. Extraocular movements grossly intact. Moist buccal mucosa. Head is atraumatic, normocephalic. Hears conversational speech. No nasal drainage. NECK: Supple without lymphadenopathy. No JV distention. CHEST: Non-labored respirations and equal bilateral excursions. CARDIOVASCULAR: Regular rate and rhythm. Palpable 2+ radial pulses. ABDOMEN: Soft. Nondistended. No incisional hernias. Nontender. Pannus reaches below the knees. Weight of pannus over 40+ pounds. MUSCULOSKELETAL: No clubbing, cyanosis or edema. NEUROLOGIC: No focal or lateralizing signs. PSYCH: Appropriate affect. Alert and oriented to person, place and time. SKIN: Well-perfused. Good skin turgor. Has panniculitis. ASSESSMENT: 1. Morbid obesity due to excess calories. 2. Body mass index reduced from 71.4 down to 49.1. 3. Obstructive sleep apnea, resolved 4. Diabetes type 2, resolved 5. Osteoarthritis of the lower back, improved 6. Osteoarthritis of the bilateral knees, improved 7. Panniculitis. 8. Status post gastric bypass. 9. Vitamin D deficiency 10. Vitamin A deficiency 11. Inadequate protein intake 12. Zinc deficiency 13. Iron deficiency PLAN: 1. Recommend bariatric metabolic panel. 2. Continue with nystatin powder panniculitis. 3. With the size and weight of her pannus, she will likely need panniculectomy in the future. 4. Follow-up November 2017. 5. Recommend adjustment of multivitamin to address multiple vitamin deficiencies. Laboratory Last Values WBC 5.9 k/uL (3.8-10.6) 09/04/17 16:16 RBC 4.66 m/uL (3.80-5.40) 09/04/17 16:16 Hgb 13.7 gm/dL (11.4-16.0) 09/04/17 16:16 Hct 41.5 % (34.0-46.0) 09/04/17 16:16 MCV 89.0 fL (80.0-100.0) 09/04/17 16:16 MCH 29.4 pg (25.0-35.0) 09/04/17 16:16 MCHC 33.0 g/dL (31.0-37.0) 09/04/17 16:16 RDW 13.7 % (11.5-15.5) 09/04/17 16:16 Plt Count 190 k/uL (150-450) 09/04/17 16:16 PT 12.8 sec (9.0-12.0) H 09/04/17 16:16 INR 1.4 (<1.2) H 09/04/17 16:16 APTT 24.5 sec (22.0-30.0) 09/04/17 16:16 Sodium 145 mmol/L (137-145) 09/04/17 16:16 Potassium 4.4 mmol/L (3.5-5.1) 09/04/17 16:16 Chloride 105 mmol/L (98-107) 09/04/17 16:16 Carbon Dioxide 28 mmol/L (22-30) 09/04/17 16:16 Anion Gap 12 mmol/L 09/04/17 16:16 BUN 10 mg/dL (7-17) 09/04/17 16:16 Creatinine 0.50 mg/dL (0.52-1.04) L 09/04/17 16:16 Est GFR (CKD-EPI)AfAm >90 (>60 ml/min/1.73 sqM) 09/04/17 16:16 Est GFR (CKD-EPI)NonAf >90 (>60 ml/min/1.73 sqM) 09/04/17 16:16 Glucose 90 mg/dL (74-99) 09/04/17 16:[address] Glu mg/dL 100 09/04/17 16:16 Hemoglobin A1c 5.1 % (4.0-6.0) 09/04/17 16:16 Calcium 9.6 mg/dL (8.4-10.2) 09/04/17 16:16 Phosphorus 4.5 mg/dL (2.5-4.5) 09/04/17 16:16 Magnesium 1.8 mg/dL (1.6-2.3) 09/04/17 16:16 Iron 33 ug/dL (50-170) L 09/04/17 16:16 TIBC 340 ug/dL (228-460) 09/04/17 16:16 Iron Saturation 9.71 (12.00-45.00) L 09/04/17 16:16 Ferritin 94.3 ng/mL (10.0-291.0) 09/04/17 16:16 Total Bilirubin 0.4 mg/dL (0.2-1.3) 09/04/17 16:16 AST 30 U/L (14-36) 09/04/17 16:16 ALT 27 U/L (9-52) 09/04/17 16:16 Alkaline Phosphatase 85 U/L (38-126) 09/04/17 16:16 Total Protein 6.9 g/dL (6.3-8.2) 09/04/17 16:16 Albumin 4.0 g/dL (3.5-5.0) 09/04/17 16:16 Prealbumin 11.0 mg/dL (18.0-42.0) L 09/04/17 16:16 Triglycerides 127 mg/dL (<150) 09/04/17 16:16 Cholesterol 121 mg/dL (<200) 09/04/17 16:16 LDL Cholesterol, Calc 59 mg/dL (0-99) 09/04/17 16:16 HDL Cholesterol 37 mg/dL (40-60) L 09/04/17 16:16 Vitamin A 24 ug/dL (38-106) L 09/04/17 16:16 Vitamin B1 84 ug/L (38-122) 09/04/17 16:16 Vitamin B12 243.0 pg/mL (200.0-944.0) 09/04/17 16:16 Vitamin D 25-Hydroxy 26.0 ng/mL (30.0-100.0) L 09/04/17 16:16 Folate 8.2 ng/mL 09/04/17 16:16 TSH 0.807 mIU/L (0.465-4.680) 09/04/17 16:16 PTH Intact 62.0 pg/mL (14.0-72.0) 09/04/17 16:16 Copper 1360 ug/L (810-1990) 09/04/17 16:16 Selenium 119 mcg/L (63-160) 09/04/17 16:16 Zinc 56 ug/dL (60-130) L 09/04/17 16:16 Iron is low Prealbumin is low HDL is low Vitamin A is low Vitamin D is low Zinc is low Recommend iron supplement. Increased protein intake over 70 g daily. Vitamin A supplement 8000 units daily. Vitamin D supplement 5000 units daily 5 Zinc supplement 15 mg daily. Objective - Vital Signs Vital signs: Vital Signs Temp 97.9 F 09/04/17 15:06 Pulse 74 09/04/17 15:06 Resp 16 09/04/17 15:06 BP 132/85 09/04/17 15:06 Pulse Ox Intake & Output 09/03/17 09/04/17 09/04/17 18:59 06:59 18:59 Weight 109.316 kg - Labs CBC & Chem 7: 09/04/17 16:16 09/04/17 16:16
== END | disposition home or self-care (01) ==
LOC: BARWHC3 14:02
PROVIDERS: ATTEND Surgery Plastic and Reconstructive Surgery
DX: Z48.815 Encounter for surgical aftercare following surgery on the digestive system (principal); E66.01 Morbid (severe) obesity due to excess calories; M47.9 Spondylosis, unspecified; M17.0 Bilateral primary osteoarthritis of knee; M79.3 Panniculitis, unspecified; E55.9 Vitamin D deficiency, unspecified; E50.9 Vitamin A deficiency, unspecified; E60 Dietary zinc deficiency; E61.1 Iron deficiency; Z90.49 Acquired absence of other specified parts of digestive tract; Z98.890 Other specified postprocedural states; Z79.899 Other long term (current) drug therapy; Z98.84 Bariatric surgery status; Z68.42 Body mass index [BMI] 45.0-49.9, adult; Z79.891 Long term (current) use of opiate analgesic; Z72.0 Tobacco use
CPT/HCPCS: 84255; 84134; 84425; 80061; 80053; 82607; 82728; 82525; 82746; 83540; 83550; 83735; 84100; 84443; 84590; 84630; 85027; 85610; 85730; 82306; 83970; 83036; 36415; G0463; 99211

== ENCOUNTER → 2018-02-27 | Outpatient (CLI) | payer MEDICARE, OTHER ==
[2018-02-27 13:14] LABS: HCT 44.9 % (34.0-46.0); HGB 14.3 gm/dL (11.4-16.0); MCHC 31.9 g/dL (31.0-37.0); Mean Platelet Volume 8.4; Platelet Count 182 k/uL (150-450); RBC 4.94 m/uL (3.80-5.40); RDW 14.1 % (11.5-15.5)
[2018-02-27 13:30] LABS: INR 1.4 (<1.2); Partial Thromboplastin Time 24.1 sec (22.0-30.0); Prothrombin Time 12.7 sec (9.0-12.0)
[2018-02-27 13:56] LABS: ALT 33 U/L (9-52); AST 26 U/L (14-36); Albumin 3.9 g/dL (3.5-5.0); Alkaline Phosphatase 87 U/L (38-126); Anion Gap 5 mmol/L; Blood Urea Nitrogen 14 mg/dL (7-17); Calcium 9.1 mg/dL (8.4-10.2); Carbon Dioxide 31 mmol/L (22-30); Chloride 104 mmol/L (98-107); Cholesterol 125 mg/dL (<200); Glucose 83 mg/dL (74-99); HDL Cholesterol 46 mg/dL (40-60); LDL Cholesterol,Calculated 62 mg/dL (0-99); Magnesium 2.1 mg/dL (1.6-2.3); Phosphorus 4.6 mg/dL (2.5-4.5); Potassium 4.7 mmol/L (3.5-5.1); Sodium 140 mmol/L (137-145); Total Bilirubin 0.4 mg/dL (0.2-1.3); Total Protein 6.7 g/dL (6.3-8.2); Triglycerides 84 mg/dL (<150)
[2018-02-27 18:59] LABS: Iron Saturation 11.75 (12.00-45.00)
[2018-02-27 19:07] LABS: Vitamin D 25 Hydroxy 34.9 ng/mL (30.0-100.0)
[2018-02-27 19:11] LABS: Folate, Serum 17.4 ng/mL
[2018-02-27 20:59] LABS: Hemoglobin A1C 5.4 % (4.0-6.0)
[2018-02-28 13:42] LABS: Zinc, Serum 81 ug/dL (60-130)
== END | disposition home or self-care (01) ==
LOC: LABWHC1 12:25
PROVIDERS: ATTEND Surgery Plastic and Reconstructive Surgery
DX: E21.1 Secondary hyperparathyroidism, not elsewhere classified (principal); D50.9 Iron deficiency anemia, unspecified; E89.1 Postprocedural hypoinsulinemia; E44.0 Moderate protein-calorie malnutrition; E55.9 Vitamin D deficiency, unspecified; K74.1 Hepatic sclerosis; N19 Unspecified kidney failure; K50.90 Crohn's disease, unspecified, without complications
CPT/HCPCS: 36415; 80053; 80061; 82306; 82525; 82607; 82728; 82746; 83036; 83540; 83550; 83735; 83970; 84100; 84134; 84255; 84425; 84443; 84590; 84630; 85027; 85610; 85730

== ENCOUNTER → 2018-07-30 | Outpatient (CLI) | payer MEDICARE, OTHER ==
[2018-07-30 12:41] VITALS: BP 125/86; PULSE 73; TEMP 97.7; BMI 39.5
--- NOTE | 2018-07-30 13:29 | P.PN ---
Subjective Progress Note Date: 07/30/18 DATE OF SERVICE: 07/30/2018 CHIEF COMPLAINT: Panniculitis. HISTORY OF PRESENT ILLNESS: Talha Crawford is a 37-year-old female with history of morbid obesity. She is status post gastric bypass on 03/07/2017. She is over 1.5 years out. She reports moderate problems with her pannus including size over 30+ pounds that is pulling on her spine and affects her activities of daily living. She has difficulty with grooming and keeping her skin clean. She reports back pain as a result of her pannus pulling along her spin. She has tried medications without improvement. She is looking into a panniculectomy. She has lost over 100 pounds. She has been using Nystatin treatment over 1 year without success. She reports lower back pain and knee pain from her pannus. She reports troubles with grooming and wearing clothes. She has horrible skin problems. She has been on many medicated creams including oral without improvement. At her height of 4 feet 10-3/4 inches, her ideal body weight is 118 pounds. Her highest weight was 350 pounds. Today she comes weighing 194 pounds from 196 pounds, 3 months ago. She has lost 3 pounds in 3 months. She has lost 156 pounds maintained over 1.5 years. Body mass index is reduced from 71.4 down to 39.5. She is 76 pounds overweight. Percent excess weight loss is 67%. PAST MEDICAL HISTORY: 1. Morbid obesity due to excess calories, BMI 71.4, initial 2. Obstructive sleep apnea. 3. Osteoarthritis of the lower back. 4. Osteoarthritis of the bilateral knees. 5. Panniculitis. 6. Diabetes type 2. PAST SURGICAL HISTORY: 1. Cholecystectomy. 2. section. 3. Upper endoscopy. 4. Gastric bypass 5. Umbilical hernia repair MEDICATIONS: 1. Omeprazole 2. Multivitamin 3. [place] 4. Vitamin A 5. Thiamine 6. Nystatin powder ALLERGIES: Denies. SOCIAL HISTORY: Lifelong nontobacco user. FAMILY HISTORY: Pertinent for morbid obesity. She denies any Crohn's disease or ulcerative colitis. Also has diabetes in her family. REVIEW OF SYSTEMS: CONSTITUTIONAL: At her height of 4 feet 10-3/4 inches, her ideal body weight is 118 pounds. Her highest weight was 350 pounds. Body mass index is reduced from 71.4. MUSCULOSKELETAL: Severe lower back pain and bilateral knee pain, improving. GASTROINTESTINAL: Gastroesophageal reflux disease results. No dumping syndrome. HEENT: Denies any troubles with vision, hearing or dysphagia. ENDOCRINE: No report of thyroid disorder. Diabetes type 2, resolved. RESPIRATORY: Denies any recent dyspnea on exertion. Obstructive sleep apnea resolved. CARDIOVASCULAR: No reports of chest pain or heart attack. NEURO: No reports of stroke or seizure disorders. PSYCH: Denies depression or suicidal ideation. HEMATOLOGIC: Denies any easy bruising or bleeding. SKIN: No cancer. Rash of the pannus persistent over 2 years. PHYSICAL EXAM: VITAL SIGNS: 4 feet, 10-3/4 inch, 194 pounds. Body mass index of 39.5 Vital Signs Temp 97.7 F 07/30/18 12:38 Pulse 73 07/30/18 12:38 Resp BP 125/86 07/30/18 12:38 Pulse Ox GENERAL: Well developed and in no acute distress. Pleasant. HEENT: No sclera icterus. Extraocular movements grossly intact. Moist buccal mucosa. Head is atraumatic, normocephalic. Hears conversational speech. No nasal drainage. NECK: Supple without lymphadenopathy. No JV distention. CHEST: Non-labored respirations and equal bilateral excursions. CARDIOVASCULAR: Regular rate and rhythm. Palpable 2+ radial pulses. ABDOMEN: Soft. Nondistended. Has panniculitis with ulcerations. Weight of pannus over 30 pounds. Pannus over pubis, 5+ cm MUSCULOSKELETAL: No clubbing, cyanosis or edema. NEUROLOGIC: No focal or lateralizing signs. PSYCH: Appropriate affect. Alert and oriented to person, place and time. SKIN: Well-perfused. Good skin turgor. Has panniculitis. ASSESSMENT: 1. Morbid obesity due to excess calories. 2. Body mass index reduced from 71.4 down to 40.0 3. Obstructive sleep apnea, resolved 4. Diabetes type 2, resolved 5. Osteoarthritis of the lower back, improved 6. Osteoarthritis of the bilateral knees, improved 7. Panniculitis. 8. Status post gastric bypass. 9. Vitamin D deficiency 10. Vitamin A deficiency 11. Inadequate protein intake 12. Zinc deficiency 13. Iron deficiency PLAN: 1. Continue Nystatin powder for her panniculitis. 2. Panniculectomy recommend as she is 1.5 years out. Benefits and risks described including bleeding, infection, flap failure, cosmetic deformity, chronic pain, and need for further surgery. 3. Correction of her baseline nutrition is advised. 4. She is intermediate risk for complications for her moderate sized pannus. 5. Recommend repeat bariatric labs with correction of all nutritional deficiencies. 6. DVT prophylaxis 7. Antibiotic prophylaxis. Laboratory Last Values WBC 5.4 k/uL (3.8-10.6) 07/30/18 14:31 RBC 4.69 m/uL (3.80-5.40) 07/30/18 14:31 Hgb 13.4 gm/dL (11.4-16.0) 07/30/18 14:31 Hct 41.7 % (34.0-46.0) 07/30/18 14:31 MCV 89.0 fL (80.0-100.0) 07/30/18 14:31 MCH 28.6 pg (25.0-35.0) 07/30/18 14:31 MCHC 32.1 g/dL (31.0-37.0) 07/30/18 14:31 RDW 13.3 % (11.5-15.5) 07/30/18 14:31 Plt Count 195 k/uL (150-450) 07/30/18 14:31 PT 12.4 sec (9.0-12.0) H 07/30/18 14:31 INR 1.2 (<1.2) H 07/30/18 14:31 APTT 22.9 sec (22.0-30.0) 07/30/18 14:31 Sodium 140 mmol/L (135-145) 07/30/18 14:31 Potassium 4.4 mmol/L (3.5-5.5) 07/30/18 14:31 Chloride 103 mmol/L (96-109) 07/30/18 14:31 Carbon Dioxide 30.0 mmol/L (21.6-31.8) 07/30/18 14:31 Anion Gap 7.00 mmol/L (4.00-12.00) 07/30/18 14:31 BUN 10.0 mg/dL (9.0-27.0) 07/30/18 14:31 Creatinine 0.6 mg/dL (0.6-1.5) 07/30/18 14:31 Est GFR (CKD-EPI)AfAm 134.0 (60.0-200.0) 07/30/18 14:31 Est GFR (CKD-EPI)NonAf 115.6 (60.0-200.0) 07/30/18 14:31 BUN/Creatinine Ratio 16.67 Ratio (12.00-20.00) 07/30/18 14:31 Glucose 82 mg/dL (70-110) 07/30/18 14:[address] Glu mg/dL 111 07/30/18 14:31 Hemoglobin A1c 5.5 % (4.0-6.0) 07/30/18 14:31 Calcium 9.0 mg/dL (8.7-10.3) 07/30/18 14:31 Phosphorus 4.4 mg/dL (2.4-5.1) 07/30/18 14:31 Magnesium 1.8 mg/dL (1.5-2.4) 07/30/18 14:31 Iron 34 ug/dL (50-170) L 07/30/18 14:31 TIBC 360 ug/dL (228-460) 07/30/18 14:31 Iron Saturation 9.44 (12.00-45.00) L 07/30/18 14:31 Ferritin 20.9 ng/mL (10.0-291.0) 07/30/18 14:31 Total Bilirubin 0.3 mg/dL (0.3-1.2) 07/30/18 14:31 AST 23 U/L (13-35) 07/30/18 14:31 ALT 15 U/L (8-44) 07/30/18 14:31 Alkaline Phosphatase 99 U/L (41-126) 07/30/18 14:31 Total Protein 6.3 g/dL (6.2-8.2) 07/30/18 14:31 Albumin 4.20 g/dL (3.80-4.90) 07/30/18 14:31 Globulin 2.1 g/dL (1.6-3.3) 07/30/18 14:31 Albumin/Globulin Ratio 2.00 g/dL (1.60-3.17) 07/30/18 14:31 Prealbumin 16.0 mg/dL (18.0-42.0) L 07/30/18 14:31 Triglycerides 50.0 mg/dL (0.0-149.0) 07/30/18 14:31 Cholesterol 118 mg/dL (0-200) 07/30/18 14:31 LDL Cholesterol, Calc 55.0 mg/dL (0.0-131.0) 07/30/18 14:31 VLDL Cholesterol, Calc 10.00 mg/dL (5.00-40.00) 07/30/18 14:31 HDL Cholesterol 53.0 mg/dL (40.0-60.0) 07/30/18 14:31 Cholesterol/HDL Ratio 2.23 07/30/18 14:31 Vitamin B12 328.0 pg/mL (200.0-944.0) 07/30/18 14:31 Vitamin D 25-Hydroxy 23.1 ng/mL (30.0-100.0) L 07/30/18 14:31 Folate 15.1 ng/mL 07/30/18 14:31 TSH 1.150 uIU/mL (0.350-5.500) 07/30/18 14:31 PTH Intact 72.3 pg/mL (14.0-72.0) H 07/30/18 14:31 Copper 1049 ug/L (810-1990) 07/30/18 14:31 Zinc 65 ug/dL (60-130) 07/30/18 14:31 Iron is low. Recommend iron infusion Pre-albumin is low. Will need increase protein intake of 75 grams daily Vitamin D supplement 50,000 units weekly for at least 6 weeks to correct PTH levels with Calcium intake Objective - Vital Signs Vital signs: Vital Signs Temp 97.7 F 07/30/18 12:38 Pulse 73 07/30/18 12:38 Resp BP 125/86 07/30/18 12:38 Pulse Ox Intake & Output 07/29/18 07/30/18 07/30/18 18:59 06:59 18:59 Weight 87.997 kg - Labs CBC & Chem 7: 07/30/18 14:31 07/30/18 14:31
[2018-07-30 15:25] LABS: HCT 41.7 % (34.0-46.0); HGB 13.4 gm/dL (11.4-16.0); MCH 28.6 pg (25.0-35.0); MCHC 32.1 g/dL (31.0-37.0); Mean Platelet Volume 7.4; Platelet Count 195 k/uL (150-450); RBC 4.69 m/uL (3.80-5.40); RDW 13.3 % (11.5-15.5); WBC 5.4 k/uL (3.8-10.6)
[2018-07-30 15:38] LABS: INR 1.2 (<1.2); Partial Thromboplastin Time 22.9 sec (22.0-30.0); Prothrombin Time 12.4 sec (9.0-12.0)
[2018-07-30 19:57] LABS: Parathyroid Hormone Intact 72.3 pg/mL (14.0-72.0)
[2018-07-30 20:01] LABS: Iron Saturation 9.44 (12.00-45.00)
[2018-07-30 20:03] LABS: Albumin 4.2 g/dL (3.80-4.90); Globulin 2.1 g/dL (1.6-3.3); Magnesium 1.8 mg/dL (1.5-2.4); Phosphorus 4.4 mg/dL (2.4-5.1); Potassium 4.4 mmol/L (3.5-5.5); Total Bilirubin 0.3 mg/dL (0.3-1.2); Total Protein 6.3 g/dL (6.2-8.2)
[2018-07-30 20:07] LABS: Hemoglobin A1C 5.5 % (4.0-6.0)
[2018-07-30 20:10] LABS: Vitamin D 25 Hydroxy 23.1 ng/mL (30.0-100.0)
[2018-07-30 20:19] LABS: Folate, Serum 15.1 ng/mL
[2018-07-31 13:05] LABS: Zinc, Serum 65 ug/dL (60-130)
[2018-08-01 18:08] LABS: Selenium 139 mcg/L (63-160)
[2018-08-04 07:19] LABS: Vit B1(Thiamine) 31 ug/L (38-122)
[2018-08-05 06:33] LABS: Vitamin A 32 ug/dL (38-106)
== END ==
LOC: BARWHC3 12:10
PROVIDERS: ATTEND Surgery Plastic and Reconstructive Surgery
DX: M54.5 Low back pain (principal); M79.3 Panniculitis, unspecified; M25.569 Pain in unspecified knee; E65 Localized adiposity; E66.01 Morbid (severe) obesity due to excess calories; E21.1 Secondary hyperparathyroidism, not elsewhere classified; E89.1 Postprocedural hypoinsulinemia; D50.9 Iron deficiency anemia, unspecified; K90.9 Intestinal malabsorption, unspecified; E44.0 Moderate protein-calorie malnutrition; E55.9 Vitamin D deficiency, unspecified; K74.1 Hepatic sclerosis; N19 Unspecified kidney failure; K50.90 Crohn's disease, unspecified, without complications; Z71.3 Dietary counseling and surveillance
CPT/HCPCS: 84255; 84134; 84425; 80061; 80053; 82607; 82728; 82525; 82746; 83540; 83550; 83735; 84100; 84443; 84590; 84630; 85027; 85610; 85730; 82306; 83970; 83036; 97803; 36415; G0463; 99211

== ENCOUNTER → 2018-09-10 | Outpatient (CLI) | payer MEDICARE, OTHER ==
--- NOTE | 2018-09-10 15:34 | P.PN ---
Subjective Progress Note Date: 09/10/18 HPI: She has lost 150 pounds. She has severe panniculitis. Weight of pannus 20 pounds ABDOMEN: Has sever umbilical panniculitis. ASSESSMENT: 1. Panniculitis PLAN: 1. Two week protein diet 2. Follow-up in 1 month.
[2018-09-10 17:18] VITALS: BMI 38.6
[2018-09-11 12:39] VITALS: BP 120/86; PULSE 97; TEMP 97.6
== END ==
LOC: BARWHC3 13:54
PROVIDERS: ATTEND Surgery Plastic and Reconstructive Surgery
DX: M79.3 Panniculitis, unspecified (principal); E66.01 Morbid (severe) obesity due to excess calories; Z68.38 Body mass index [BMI] 38.0-38.9, adult
CPT/HCPCS: 97803; G0463; 99211

== ENCOUNTER → 2018-09-17 | Outpatient (CLI) | payer MEDICARE, OTHER ==
[2018-09-17 16:16] LABS: ALT 26 U/L (9-52); AST 27 U/L (14-36); Albumin 4.1 g/dL (3.5-5.0); Alkaline Phosphatase 97 U/L (38-126); Anion Gap 10 mmol/L; Blood Urea Nitrogen 16 mg/dL (7-17); Calcium 9.4 mg/dL (8.4-10.2); Carbon Dioxide 27 mmol/L (22-30); Chloride 103 mmol/L (98-107); Glucose 83 mg/dL (74-99); Potassium 4.7 mmol/L (3.5-5.1); Sodium 140 mmol/L (137-145); Total Bilirubin 0.3 mg/dL (0.2-1.3); Total Protein 6.9 g/dL (6.3-8.2)
[2018-09-17 16:17] LABS: Basophils % (A) 0 %; Eosinophils # (A) 0.1 k/uL (0-0.7); Eosinophils % (A) 2 %; HCT 45.2 % (34.0-46.0); HGB 14.8 gm/dL (11.4-16.0); Lymphocytes % (A) 36 %; MCH 29.3 pg (25.0-35.0); MCHC 32.7 g/dL (31.0-37.0); MCV 89.5 fL (80.0-100.0); Mean Platelet Volume 8.6; Monocytes # (A) 0.3 k/uL (0-1.0); Monocytes % (A) 6 %; Neutrophils % (A) 54 %; Platelet Count 177 k/uL (150-450); RBC 5.05 m/uL (3.80-5.40); WBC 5.5 k/uL (3.8-10.6)
== END | disposition home or self-care (01) ==
LOC: LABPAT 15:07
PROVIDERS: ATTEND Surgery Plastic and Reconstructive Surgery
DX: Z01.818 Encounter for other preprocedural examination (principal); Z01.812 Encounter for preprocedural laboratory examination
CPT/HCPCS: 80053; 85025; 93005

== ENCOUNTER → 2018-09-24 | Outpatient (CLI) | payer MEDICARE, OTHER ==
[2018-09-24 22:41] LABS: Iron Saturation 27.47 (12.00-45.00)
== END ==
LOC: LABWHC1 12:01
PROVIDERS: ATTEND Surgery Plastic and Reconstructive Surgery
DX: Z48.815 Encounter for surgical aftercare following surgery on the digestive system (principal); E66.01 Morbid (severe) obesity due to excess calories; D50.9 Iron deficiency anemia, unspecified; Z98.84 Bariatric surgery status
CPT/HCPCS: 36415; 82728; 83540; 83550

== ENCOUNTER 2018-10-01 10:18 | Inpatient (IN) | payer MEDICARE, OTHER ==
[~2018-10-01 10:18] MED LIST changes: -HEPARIN SODIUM,PORCINE 5,000 UNIT/ML 1 ML VIAL SQ ONE; -LACTATED RINGERS 1,000 ML IV SCH; -MIDAZOLAM 2 MG/2 ML VIAL IV PRN
[2018-10-01] MEDS ORDERED: HEPARIN SODIUM,PORCINE 5,000 UNIT/ML 1 ML VIAL SQ ONE (10:26)
--- NOTE | 2018-10-01 10:31 | P.GSHP ---
History of Present Illness H&P Date: 10/01/18 \ DATE OF SERVICE: 10/01/2018 CHIEF COMPLAINT: Panniculitis. HISTORY OF PRESENT ILLNESS: Talha Ramos is a 38-year-old female with history of morbid obesity. She is status post gastric bypass on 03/07/2017. She is 2 years out. She reports moderate problems with her pannus including size over 3 0+ pounds that is pulling on her spine and affects her activities of daily living. She has difficulty with grooming and keeping her skin clean. She reports back pain as a result of her pannus pulling along her spin. She has tried medications without improvement. She is looking into a panniculectomy. She has lost over 100+ pounds. She has been using Nystatin treatment over 1 year without success. She reports lower back pain and knee pain from her pannus. She reports troubles with grooming and wearing clothes. She has horrible skin problems. She has been on many medicated creams including oral without improvement. At her height of 4 feet 10-3/4 inches, her ideal body weight is 118 pounds. Her highest weight was 350 pounds. Today she comes weighing 180 pounds from 194 pounds, 2 months ago. She has lost 14 pounds in 2 months. She has lost 170 pounds maintained. Body mass index is reduced from 71.4 down to 35.7. Percent excess weight loss is over 70 %. PAST MEDICAL HISTORY: 1. Morbid obesity due to excess calories, BMI 71.4, initial 2. Obstructive sleep apnea. 3. Osteoarthritis of the lower back. 4. Osteoarthritis of the bilateral knees. 5. Panniculitis. 6. Diabetes type 2. PAST SURGICAL HISTORY: 1. Cholecystectomy. 2. section. 3. Upper endoscopy. 4. Gastric bypass 5. Umbilical hernia repair MEDICATIONS: 1. Omeprazole 2. Multivitamin 3. [place] 4. Vitamin A 5. Thiamine 6. Nystatin powder ALLERGIES: Denies. SOCIAL HISTORY: Lifelong nontobacco user. FAMILY HISTORY: Pertinent for morbid obesity. She denies any Crohn's disease or ulcerative colitis. Also has diabetes in her family. REVIEW OF SYSTEMS: CONSTITUTIONAL: At her height of 4 feet 10-3/4 inches, her ideal body weight is 118 pounds. Her highest weight was 350 pounds. Body mass index is reduced from 71.4. MUSCULOSKELETAL: Severe lower back pain and bilateral knee pain, improving. GASTROINTESTINAL: Gastroesophageal reflux disease results. No dumping syndrome. HEENT: Denies any troubles with vision, hearing or dysphagia. ENDOCRINE: No report of thyroid disorder. Diabetes type 2, resolved. RESPIRATORY: Denies any recent dyspnea on exertion. Obstructive sleep apnea resolved. CARDIOVASCULAR: No reports of chest pain or heart attack. NEURO: No reports of stroke or seizure disorders. PSYCH: Denies depression or suicidal ideation. HEMATOLOGIC: Denies any easy bruising or bleeding. SKIN: No cancer. Rash of the pannus persistent over 2 years. PHYSICAL EXAM: VITAL SIGNS: 4 feet, 10-3/4 inch, 180 pounds. Body mass index of 35.7 GENERAL: Well developed and in no acute distress. Pleasant. HEENT: No sclera icterus. Extraocular movements grossly intact. Moist buccal mucosa. Head is atraumatic, normocephalic. Hears conversational speech. No nasal drainage. NECK: Supple without lymphadenopathy. No JV distention. CHEST: Non-labored respirations and equal bilateral excursions. CARDIOVASCULAR: Regular rate and rhythm. Palpable 2+ radial pulses. ABDOMEN: Soft. Nondistended. Has panniculitis with ulcerations. Weight of pannus over 30 pounds. Pannus over pubis, 5+ cm MUSCULOSKELETAL: No clubbing, cyanosis or edema. NEUROLOGIC: No focal or lateralizing signs. PSYCH: Appropriate affect. Alert and oriented to person, place and time. SKIN: Well-perfused. Good skin turgor. Has panniculitis. ASSESSMENT: 1. Morbid obesity due to excess calories. 2. Body mass index reduced from 71.4 down to 35.7 3. Obstructive sleep apnea, resolved 4. Diabetes type 2, resolved 5. Osteoarthritis of the lower back, improved 6. Osteoarthritis of the bilateral knees, improved 7. Panniculitis. 8. Status post gastric bypass. 9. Vitamin D deficiency 10. Vitamin A deficiency 11. Inadequate protein intake 12. Zinc deficiency 13. Iron deficiency 14. Status post massive weight loss 170 pounds PLAN: 1. Panniculectomy recommend as she is recalcitrant to medical therapy. Benefits and risks described including bleeding, infection, flap failure, cosmetic d eformity, chronic pain, and need for further surgery. 2. She is intermediate risk for complications for her moderate sized pannus. 3. DVT prophylaxis 4. Antibiotic prophylaxis. Past Medical History Past Medical History: GERD/Reflux, Sleep Apnea/CPAP/BIPAP Additional Past Medical History / Comment(s): Hiatal hernia, uses CPAP. Recent Iron and Mineral Infusions. History of Any Multi-Drug Resistant Organisms: None Reported Past Surgical History: Adenoidectomy, Bariatric Surgery, Section, Cholecystectomy, Tonsillectomy, Tubal Ligation Additional Past Surgical History / Comment(s): Section X2, gastric bypass 03-07-17, EGD. Past Anesthesia/Blood Transfusion Reactions: No Reported Reaction Additional Past Anesthesia/Blood Transfusion Reaction / Comment(s): No blood transfusion. Past Psychological History: No Psychological Hx Reported Smoking Status: Never smoker Past Alcohol Use History: None Reported Past Drug Use History: None Reported - Past Family History Mother Family Medical History: No Reported History Father Family Medical History: Diabetes Mellitus Medications and Allergies Home Medications Medication Instructions Recorded Confirmed Type Multivitamin [Multivitamins Adult 1 each PO DAILY 09/04/17 09/24/18 History Gummies] Ergocalciferol [Vitamin D2 50,000 unit PO Q7D #12 cap 08/13/18 09/24/18 Rx (DRISDOL)] Amitriptyline HCl [Elavil] 50 mg PO HS 08/20/18 09/24/18 History HYDROcodone/APAP 5-325MG [[place] 1 tab PO DAILY 09/24/18 09/24/18 History 5-325] Iron (Unknown Dose) 1 tab PO DAILY 09/24/18 09/24/18 History Allergies Allergy/AdvReac Type Severity Reaction Status Date / Time No Known Allergies Allergy Verified 09/24/18 14:37
[2018-10-01] MEDS: LACTATED RINGERS 1,000 ML IV SCH (10:49)
[2018-10-01] MEDS ORDERED: HYDROmorphone (PF) 1 MG/ML ONE (12:23)
[2018-10-01] MEDS ORDERED: NEOSTIGMINE 1 MG/ML 10 ML VIAL ONE (12:23)
[2018-10-01] MEDS ORDERED: fentaNYL (PF) 50 MCG/ML 2 ML AMP ONE (12:23)
[2018-10-01] MEDS ORDERED: GLYCOPYRROLATE 0.2 MG/ML 2 ML VIAL ONE (12:23)
[2018-10-01] MEDS ORDERED: PROPOFOL 10 MG/ML 20 ML VIAL IV ONE (12:23)
[2018-10-01] MEDS ORDERED: SUCCINYLCHOLINE CHLORIDE 100 MG/5 ML SYR IV ONE (12:23)
[2018-10-01] MEDS ORDERED: VECURONIUM 10 MG VIAL IV ONE (12:23)
[2018-10-01] MEDS ORDERED: LIDOCAINE 1% INJ 10MG/ML (20 ML MDV) ONE (12:23)
[2018-10-01] MEDS ORDERED: MIDAZOLAM 2 MG/2 ML VIAL ONE (12:23)
[2018-10-01] MEDS ORDERED: LACTATED RINGERS 1,000 ML IV ONE ×2 (13:17→15:27)
[2018-10-01] MEDS ORDERED: TRIMETHOBENZAMIDE 100 MG/ML 2 ML VIAL IM PRN (17:12)
[2018-10-01] MEDS ORDERED: ONDANSETRON 4 MG/2 ML VIAL IVP PRN (17:12)
[2018-10-01] MEDS ORDERED: NALOXONE 0.4 MG/ML 1 ML VIAL IV PRN (17:13)
[2018-10-01] MEDS ORDERED: HYDROcodone/APAP 15 ML SOLUTION PO PRN (17:13)
--- NOTE | 2018-10-01 17:31 | P.OP ---
Date of Procedure: 10/01/18 Description of Procedure: SURGEON: AMADOU YEE MD PREOPERATIVE DIAGNOSES: 1. Morbid obesity due to excess calories. 2. Body mass index reduced from 71.4 down to 35.7 3. Obstructive sleep apnea, resolved 4. Diabetes type 2, resolved 5. Osteoarthritis of the lower back, improved 6. Osteoarthritis of the bilateral knees, improved 7. Chronic panniculitis recalcitrant to medical therapy 8. Status post gastric bypass. 9. Vitamin D deficiency 10. Vitamin A deficiency 11. Inadequate protein intake 12. Thiamine deficiency 13. Iron deficiency 14. Status post massive weight loss 170 pounds 15. History of recurrent incisional hernia POSTOPERATIVE DIAGNOSES: 1. Morbid obesity due to excess calories. 2. Body mass index reduced from 71.4 down to 35.7 3. Obstructive sleep apnea, resolved 4. Diabetes type 2, resolved 5. Osteoarthritis of the lower back, improved 6. Osteoarthritis of the bilateral knees, improved 7. Chronic panniculitis recalcitrant to medical therapy 8. Status post gastric bypass. 9. Vitamin D deficiency 10. Vitamin A deficiency 11. Inadequate protein intake 12. Thiamine deficiency 13. Iron deficiency 14. Status post massive weight loss 170 pounds 15. Recurrent incarcerated incisional hernia unrelated to previous bariatric procedures, 15 x 23 cm OPERATION: 1. Panniculectomy supraumbilical, 22.7 pounds. 2. Repair of recurrent incarcerated incisional 15 x 23 cm without mesh 3. Abdominal wall reconstruction with myocutaneous bilateral flap advancement. ANESTHESIA: General ESTIMATED BLOOD LOSS: 400 mL SPECIMENS REMOVED: Pannus 22.4 pounds. COMPLICATIONS: None. CONDITION: Stable. DRAINS: Two #19 Stephan drains below abdominal flap extending through the pubis. OPERATIVE FINDINGS: 1. Pannus weighing 22.7 pounds, excised. 2. Abdominal ventral hernia of 15 x 23 cm along the midline repaired primarily using fascial imbrication. INDICATIONS: The patient is a 38-year-old female with a history of massive weight loss over 170 pounds over 2+ years. Despite medical therapy with prescription powders such as Nystatin over 1 year, she has developed severe medical refractory panniculitis including chronic lower back pain. Her body mass index has been reduced from approximately 71.4 down to 35.7. She reports medically refractory panniculitis. Given her clinical symptoms, including massive weight loss, she elected for surgical intervention with a panniculectomy. Benefits and risks of the procedure including bleeding, infection, risk of flap failure were described at length. Informed consent was obtained. DESCRIPTION: In the preanesthesia care unit the patient was marked with an indelible marker. She had also been given heparin subcutaneously. The patient was brought into the operating room and laid in supine position. After general induction, a Arthur catheter was placed. The abdomen was then prepped and draped in standard sterile fashion using ChloraPrep. The skin was prepped as far laterally to the back, inferiorly to the upper thighs and superiorly to above the bilateral breasts. A timeout protocol was confirmed with the surgical team regarding patient's name, procedure to be performed, including preoperative medications. She had received Ancef 2 grams IV antibiotics. Once the time-out protocol was confirmed with the surgical team, the patient was re-marked with indelible marker whereby the midline of the xiphoid to the mons pubis was marked. The anterior/superior iliac spine along the bilateral hips was also marked. Approximately 8 cm above the pubis commissure a transverse incision was made for the inferior portion of the flap. Using a #10 blade, the incision was taken from the midline laterally to above the anterior/superior iliac spine, initially on the left side of the patient and then on the right side of the patient. Electro-Bovie cautery was used to control for hemostasis. The dissection was bonifacio en down to the level of the fascia. Landmarks used were the xiphoid process as well as the bilateral costal margins for the superior margin. Care was taken to avoid any creation of dog ears during the dissection. Once hemostasis was checked, a large ventral hernia fascial defect of 15 x 23 cm was identified. During this dissection, the umbilicus was truncated at its fascial insertion. Bilateral myocutaneous flaps were created after identfying the external obliques muscle overlapped after creating over 8+cm overlap on the left and right side flap advancement. The defect closed was large of 15 x 23 cm using the rectus muscle. After the flaps were raised, the midline was re-marked again from the xiphoid to the pubis commissure. Fascial imbrication was proposed with for primary repair and to reinforce the bilateral myocutaneous flap advancement. Starting from the xiphoid process, the rectus muscle was overlapped in the bilateral myocutaneous flap advancement using multiple #2 Ethibonds. The ventral hernia defect was completely repaired and closed. Hemostasis was once again checked with electro-Bovie cautery and all defects were addressed. Attention was now brought to closure of the flap. Using stainless steel skin clement, the midline was once again marked of the upper flap as well as the pubic commissure. The patient was placed in a flexed position of approximately 30 degrees at the hips. The pannus was extended inferiorly to the feet. The upper flap was created once the excess skin was excised. Again care was taken to avoid any dog ears along the lateral aspect of the incisions. Once excised, the pannus weighed approximately 22.7 pounds. The upper and lower flaps were reapproximated at the midline and then laterally to the skin with skin clement. Once reapproximated, the skin was closed in layers using 0 Vicryl for the superficial fascial system followed by running 3-0 Monocryl for the deep dermis and finally 4-0 Monocryl in a running subcuticular fashion. Prior to skin closure, two round #19 Stephan drains were placed underneath the flap and brought out just inferior to the incision along the pubis. Drain stitch using 2-0 nylon was placed. Once the incision was closed, bulb suction was attached. Hemostasis was checked. At the end of the procedure, the needle, sponge and instrument count was verified correct. The skin was cleansed with dilute hydrogen peroxide. Exofin tape and Optifoam dressings were placed. The patient was then transferred to a hospital bed in a beach chair position. An abdominal binder was placed and marked. The patient was taken to the postanesthesia care unit in stable condition, awake and extubated. Total time for procedure from skin to skin was 224 minutes. The intraoperative findings were discussed with her family who was pleased with the level of care.
[2018-10-01] MEDS: HYDROmorphone 0.5 MG/0.5 ML SYRINGE IVP PRN ×4 (17:35→18:08)
[2018-10-01] MEDS: 0.9% NACL WITH KCL 20 MEQ/L 1,000 ML IV SCH (19:39)
[2018-10-01] MEDS: CYANOCOBALAMIN 1,000 MCG/ML 1 ML VIAL IM SCH (20:19)
[2018-10-01] MEDS: ceFAZolin IN SWFI 2 GM/20 ML SYRINGE IVP SCH (20:20)
[2018-10-01] MEDS: HYDROcodone/APAP 5-325MG 1 EACH TAB PO SCH (20:28)
[2018-10-01] MEDS: THIAMINE 200 MG in SODIUM CHLORIDE 0.9% 100 ML IVPB SCH (22:03)
[2018-10-01 22:14] VITALS: BMI 36.7
[2018-10-02] MEDS: HYDROcodone/APAP 5-325MG 1 EACH TAB PO SCH ×5 (00:53→16:17)
[2018-10-02] MEDS: 0.9% NACL WITH KCL 20 MEQ/L 1,000 ML IV SCH ×4 (02:34→23:31)
[2018-10-02] MEDS: ceFAZolin IN SWFI 2 GM/20 ML SYRINGE IVP SCH (04:59)
[2018-10-02 08:53] LABS: Basophils % (A) 0 %; Eosinophils % (A) 0 %; HCT 36.9 % (34.0-46.0); Lymphocytes # (A) 1.5 k/uL (1.0-4.8); Lymphocytes % (A) 17 %; MCH 29.4 pg (25.0-35.0); MCHC 32.4 g/dL (31.0-37.0); MCV 90.7 fL (80.0-100.0); Mean Platelet Volume 8.8; Monocytes # (A) 0.4 k/uL (0-1.0); Monocytes % (A) 5 %; Neutrophils # (A) 6.9 k/uL (1.3-7.7); Neutrophils % (A) 77 %; Platelet Count 165 k/uL (150-450); RBC 4.06 m/uL (3.80-5.40); RDW 15.3 % (11.5-15.5); WBC 8.9 k/uL (3.8-10.6)
[2018-10-02] MEDS: LACTATED RINGERS 1,000 ML IV SCH (09:02)
[2018-10-02] MEDS: CYANOCOBALAMIN 1,000 MCG/ML 1 ML VIAL IM SCH (09:18)
[2018-10-02] MEDS: ENOXAPARIN 40 MG/0.4 ML SYRINGE SQ SCH (09:18)
[2018-10-02] MEDS: PANTOPRAZOLE 40 MG/10 ML VIAL IV SCH (09:19)
[2018-10-02] MEDS: THIAMINE 200 MG in SODIUM CHLORIDE 0.9% 100 ML IVPB SCH ×2 (09:19→21:29)
[2018-10-02] MEDS: HYDROmorphone 1 MG/ML 1 ML SYRINGE IVP PRN ×3 (12:47→23:29)
--- NOTE | 2018-10-02 13:20 | P.PN ---
Subjective Progress Note Date: 10/02/18 CHIEF COMPLAINT: Panniculitis HISTORY OF PRESENT ILLNESS: 38-year-old female who underwent panniculectomy and repair of recurrent incarcerated incisional hernia. POD #1. Patient is examined this morning sitting up in the chair. Reports abdominal pain but state s it is tolerable at this time. Arthur catheter was discontinued at 8:00 this morning. She is due to void. Tolerating liquids. Denies nausea or vomiting. Hemoglobin 12.0. left JIM drain with 70 mL's of sanguinous drainage overnight and right JIM with 60 mL's of sanguinous drainage. PHYSICAL EXAM: VITAL SIGNS: Reviewed. GENERAL: Well-developed in no acute distress. HEENT: No sclera icterus. Extraocular movements grossly intact. Moist buccal mucosa. Head is atraumatic, normocephalic. ABDOMEN: Soft. Nondistended. Abdominal binder present. JIM x 2 intact with sanguinous drainage. NEUROLOGIC: Alert and oriented. Cranial nerves II through XII grossly intact. ASSESSMENT 1. Morbid obesity due to excess calories. 2. Body mass index reduced from 71.4 down to 35.7 3. Obstructive sleep apnea, resolved 4. Diabetes type 2, resolved 5. Osteoarthritis of the lower back, improved 6. Osteoarthritis of the bilateral knees, improved 7. Chronic panniculitis recalcitrant to medical therapy 8. Status post gastric bypass. 9. Vitamin D deficiency 10. Vitamin A deficiency 11. Inadequate protein intake 12. Thiamine deficiency 13. Iron deficiency 14. Status post massive weight loss 170 pounds 15. Recurrent incarcerated incisional hernia unrelated to previous bariatric procedures, 15 x 23 cm PLAN: 1. Pain control 2. Incentive spirometry 3. Activity as tolerated 4. Strict I&O. Monitor JIM drainage. 5. Patient due to void. Notify provider if patient has not voided within 6 hours of catheter removal Nurse practitioner note has been reviewed by physician. Signing provider agrees with the documented findings, assessment, and plan of care. Objective - Vital Signs Vital signs: Vital Signs Temp 99.3 F 10/02/18 07:40 Pulse 102 H 10/02/18 07:40 Resp 14 10/02/18 07:40 BP 124/84 10/02/18 07:40 Pulse Ox 97 10/02/18 07:40 Intake & Output 10/01/18 10/02/18 10/02/18 18:59 06:59 18:59 Intake Total 3700 0 Output Total 1050 630 Balance 2650 -630 0 Intake: IV 3700 Oral 0 Output: Drainage 130 Left Abdomen 70 Right Abdomen 60 Urine 650 500 Estimated Blood Loss 400 Other: Voiding Method Indwelling Catheter Indwelling Catheter - Labs CBC & Chem 7: 10/02/18 08:21 Assessment and Plan (1) H/O gastric bypass Current Visit: Yes Status: Acute Code(s): Z98.84 - BARIATRIC SURGERY STATUS SNOMED Code(s): 265556690 (2) Morbid obesity Current Visit: No Status: Acute Code(s): E66.01 - MORBID (SEVERE) OBESITY DUE TO EXCESS CALORIES SNOMED Code(s): 485482912 (3) Panniculitis Current Visit: No Status: Acute Code(s): M79.3 - PANNICULITIS, UNSPECIFIED SNOMED Code(s): 06522276 (4) Sleep apnea Current Visit: No Status: Acute Code(s): G47.30 - SLEEP APNEA, UNSPECIFIED SNOMED Code(s): 61160239
[2018-10-02] MEDS ORDERED: SODIUM CHLORIDE 0.9% 1,000 ML IV ONE (17:20)
--- NOTE | 2018-10-02 17:23 | P.PN ---
Progress Note - Text Progress Note Date: 10/02/18 Patient seen and evaluated. She has tachycardia with poor pain control. Separately, blood pressure now lower than preop. Recommend IV fluid bolus 1000 normal saline bolus. Incentive spirometry teaching reinforced. Adjustment of pain medication to include muscle relaxant Flexeril and adjustment from [place] 5 to 7.5. Anticipated discharge tomorrow.
[2018-10-02] MEDS: CYCLOBENZAPRINE 10 MG TAB PO SCH ×2 (19:03→23:29)
[2018-10-02] MEDS: HYDROcodone/APAP 7.5-325MG 1 EACH TAB PO SCH (20:05)
[2018-10-03] MEDS: HYDROcodone/APAP 7.5-325MG 1 EACH TAB PO SCH ×4 (02:05→17:39)
[2018-10-03] MEDS: LACTATED RINGERS 1,000 ML IV SCH (02:06)
[2018-10-03] MEDS: HYDROmorphone 1 MG/ML 1 ML SYRINGE IVP PRN ×2 (04:56→11:08)
[2018-10-03] MEDS: 0.9% NACL WITH KCL 20 MEQ/L 1,000 ML IV SCH (05:06)
[2018-10-03] MEDS ORDERED: BISACODYL 5 MG TABLET.DR PO PRN (08:00)
[2018-10-03] MEDS ORDERED: SODIUM CHLORIDE 0.9% 1,000 ML IV ONE (08:48)
[2018-10-03] MEDS: ENOXAPARIN 40 MG/0.4 ML SYRINGE SQ SCH (11:24)
[2018-10-03] MEDS: PANTOPRAZOLE 40 MG/10 ML VIAL IV SCH (11:31)
[2018-10-03] MEDS: CYANOCOBALAMIN 1,000 MCG/ML 1 ML VIAL IM SCH (11:35)
[2018-10-03] MEDS: CYCLOBENZAPRINE 10 MG TAB PO SCH ×2 (11:36→17:39)
[2018-10-03] MEDS ORDERED: SODIUM CHLORIDE 0.9% 1,000 ML IV SCH (11:45)
[2018-10-03 12:19] LABS: ALT 17 U/L (9-52); AST 16 U/L (14-36); Albumin 2.6 g/dL (3.5-5.0); Alkaline Phosphatase 58 U/L (38-126); Anion Gap 4 mmol/L; Basophils % (A) 0 %; Blood Urea Nitrogen 4 mg/dL (7-17); Calcium 7.8 mg/dL (8.4-10.2); Carbon Dioxide 23 mmol/L (22-30); Chloride 110 mmol/L (98-107); Eosinophils # (A) 0.1 k/uL (0-0.7); Eosinophils % (A) 1 %; Glucose 82 mg/dL (74-99); HCT 30.8 % (34.0-46.0); HGB 10.1 gm/dL (11.4-16.0); Lymphocytes # (A) 1.3 k/uL (1.0-4.8); Lymphocytes % (A) 20 %; MCHC 32.8 g/dL (31.0-37.0); MCV 91.4 fL (80.0-100.0); Magnesium 1.7 mg/dL (1.6-2.3); Monocytes # (A) 0.3 k/uL (0-1.0); Monocytes % (A) 4 %; Neutrophils # (A) 4.7 k/uL (1.3-7.7); Neutrophils % (A) 74 %; Platelet Count 135 k/uL (150-450); Potassium 3.9 mmol/L (3.5-5.1); RBC 3.38 m/uL (3.80-5.40); RDW 14.9 % (11.5-15.5); Sodium 137 mmol/L (137-145); Total Bilirubin 0.3 mg/dL (0.2-1.3); Total Protein 4.7 g/dL (6.3-8.2); WBC 6.4 k/uL (3.8-10.6)
[2018-10-03 15:07] VITALS: BP 123/79; PULSE 100; RESP 16; TEMP 98.3
[2018-10-03] MEDS: THIAMINE 200 MG in SODIUM CHLORIDE 0.9% 100 ML IVPB SCH (17:43)
--- NOTE | 2018-10-07 16:15 | P.DS ---
Providers Date of admission: 10/03/18 09:23 Expected date of discharge: 10/03/18 Attending physician: Melanie Presley Primary care physician: Stated None - Discharge Diagnosis(es) (1) Incisional hernia, incarcerated Status: Acute (2) H/O gastric bypass Status: Acute (3) Panniculitis Status: Acute Hospital Course: POSTOPERATIVE DIAGNOSES: 1. Morbid obesity due to excess calories. 2. Body mass index reduced from 71.4 down to 35.7 3. Obstructive sleep apnea, resolved 4. Diabetes type 2, resolved 5. Osteoarthritis of the lower back, improved 6. Osteoarthritis of the bilateral knees, improved 7. Chronic panniculitis recalcitrant to medical therapy 8. Status post gastric bypass. 9. Vitamin D deficiency 10. Vitamin A deficiency 11. Inadequate protein intake 12. Thiamine deficiency 13. Iron deficiency 14. Status post massive weight loss 170 pounds 15. Recurrent incarcerated incisional hernia unrelated to previous bariatric procedures, 15 x 23 cm COURSE: The patient is a 38-year-old female with a history of massive weight loss over 170 pounds over 2+ years. Despite medical therapy with prescription powders such as Nystatin over 1 year, she has developed severe medical refractory panniculitis including chronic lower back pain. Her body mass index has been reduced from approximately 71.4 down to 35.7. She reports medically refractory panniculitis. Given her clinical symptoms, including massive weight loss, she elected for surgical intervention with a panniculectomy. Postprocedure, her pain medication was adjusted for her tachycardia. Overall, over 22 pounds of skin was removed. Wound care instructions were reviewed. Additional iron infusions were started for history of iron deficiency anemia. Drain care was addressed with follow-up in 1 week. Procedures: OPERATION: 1. Panniculectomy supraumbilical, 22.7 pounds. 2. Repair of recurrent incarcerated incisional 15 x 23 cm without mesh 3. Abdominal wall reconstruction with myocutaneous bilateral flap advancement. ANESTHESIA: General ESTIMATED BLOOD LOSS: 400 mL SPECIMENS REMOVED: Pannus 22.4 pounds. COMPLICATIONS: None. CONDITION: Stable. DRAINS: Two #19 Stephan drains below abdominal flap extending through the pubis. OPERATIVE FINDINGS: 1. Pannus weighing 22.7 pounds, excised. 2. Abdominal ventral hernia of 15 x 23 cm along the midline repaired primarily using fascial imbrication. Patient Condition at Discharge: Stable Plan - Discharge Summary Discharge Rx Participant: Yes New Discharge Prescriptions: New HYDROcodone/APAP 5-325MG [[place] 5-325] 1 tab PO Q4HR PRN 3 Days #18 tab PRN Reason: Pain Bisacodyl [Dulcolax] 5 mg PO DAILY PRN #10 tablet. PRN Reason: Constipation Cyclobenzaprine [Flexeril] 10 mg PO TID #30 tab Continue Multivitamin [Multivitamins Adult Gummies] 1 tab PO DAILY Ergocalciferol [Vitamin D2 (DRISDOL)] 50,000 unit PO Q7D #12 cap Amitriptyline HCl [Elavil] 50 mg PO HS Iron (Unknown Dose) 1 tab PO DAILY Discontinued HYDROcodone/APAP 5-325MG [Am[place] 5-325] 1 tab PO DAILY Discharge Medication List Multivitamin [Multivitamins Adult Gummies] 1 tab PO DAILY 09/04/17 [History] Ergocalciferol [Vitamin D2 (DRISDOL)] 50,000 unit PO Q7D #12 cap 08/13/18 [Rx] Amitriptyline HCl [Elavil] 50 mg PO HS 08/20/18 [History] Iron (Unknown Dose) 1 tab PO DAILY 09/24/18 [History] Bisacodyl [Dulcolax] 5 mg PO DAILY PRN #10 tablet. 10/01/18 [Rx] HYDROcodone/APAP 5-325MG [[place] 5-325] 1 tab PO Q4HR PRN 3 Days #18 tab 10/01/18 [Rx] Cyclobenzaprine [Flexeril] 10 mg PO TID #30 tab 10/03/18 [Rx] Follow up Appointment(s)/Referral(s): [facility] [[facility]-STAFF] - 10/10/18 10:00 am Patient Instructions/Handouts: Abdominal Binder (DC), Panniculectomy (DC) Activity/Diet/Wound Care/Special Instructions: No lifting over 4 pounds in 4 weeks. No bathtub soaks. No shower. No stretching or twisting. Sleep in a recliner. DO NOT REMOVE DRESSINGS. DO NOT REMOVE BINDER. Keep record of JIM outputs daily. [facility]
== END 2018-10-03 18:41 | disposition home or self-care (01) | DRG 988 ==
LOC: OR 10:18 → 4SSUR 17:08 → OBSVTOIN 10-03 09:23 → 4SSUR 10-03 09:23 → OR 10-03 11:28
PROVIDERS: ADMIT Surgery Plastic and Reconstructive Surgery; ATTEND Surgery Plastic and Reconstructive Surgery
PROC: 0WUF07Z Supplement Abdominal Wall with Autologous Tissue Substitute, Open Approach (ICD-10-PCS; 2018-10-01)
PROC: 0HB7XZZ Excision of Abdomen Skin, External Approach (ICD-10-PCS; principal; 2018-10-01 12:30)
DX: M79.3 Panniculitis, unspecified (principal); K43.0 Incisional hernia with obstruction, without gangrene; E51.9 Thiamine deficiency, unspecified; E66.01 Morbid (severe) obesity due to excess calories; E60 Dietary zinc deficiency; E50.9 Vitamin A deficiency, unspecified; E55.9 Vitamin D deficiency, unspecified; G47.33 Obstructive sleep apnea (adult) (pediatric); K21.9 Gastro-esophageal reflux disease without esophagitis; M17.0 Bilateral primary osteoarthritis of knee; M47.9 Spondylosis, unspecified; E11.9 Type 2 diabetes mellitus without complications; M54.5 Low back pain; R63.4 Abnormal weight loss; D50.9 Iron deficiency anemia, unspecified; Z68.35 Body mass index [BMI] 35.0-35.9, adult; Z79.899 Other long term (current) drug therapy; Z98.84 Bariatric surgery status; Z98.891 History of uterine scar from previous surgery; Z90.49 Acquired absence of other specified parts of digestive tract; Z90.89 Acquired absence of other organs; Z83.3 Family history of diabetes mellitus
CPT/HCPCS: 80053; 81025; 83735; 85025; 94760; 94762

== ENCOUNTER → 2018-10-10 | Outpatient (CLI) | payer MEDICARE, OTHER ==
--- NOTE | 2018-10-10 10:40 | P.PN ---
Subjective Progress Note Date: 10/10/18 DATE OF SERVICE: 10/10/2018 CHIEF COMPLAINT: Panniculitis. HISTORY OF PRESENT ILLNESS: Talha Crawford is a 37-year-old female status post panniculectomy, 23 pounds, 10/03/2018. Her pain is fair. No nausea or vomiting. No fevers or chills. She is 1 week out. At her height of 4 feet 10-3/4 inches, her ideal body weight is 118 pounds. Her highest weight was 350 pounds. Today she comes weighing 167 pounds from 189 pounds, 1 month ago. She has lost 22 pounds in 1 month. She has lost 183 pounds. Body mass index is reduced from 71.4 down to 34.1. She is 49 pounds overweight. Percent excess weight loss is 79%. PHYSICAL EXAM: VITAL SIGNS: 4 feet, 10-3/4 inch, 189 pounds. Body mass index of 34.1 Vital Signs Temp 97.1 F L 10/10/18 10:37 Pulse 81 10/10/18 10:37 Resp BP 114/71 10/10/18 10:37 Pulse Ox GENERAL: Well developed and in no acute distress. Pleasant. HEENT: No sclera icterus. Extraocular movements grossly intact. Moist buccal mucosa. Head is atraumatic, normocephalic. Hears conversational speech. No nasal drainage. NECK: Supple without lymphadenopathy. No JV distention. CHEST: Non-labored respirations and equal bilateral excursions. CARDIOVASCULAR: Regular rate and rhythm. Palpable 2+ radial pulses. ABDOMEN: Soft. Nondistended. No erythema cellulitis. External dressing discontinued. Abdominal binder refitted. MUSCULOSKELETAL: No clubbing, cyanosis or edema. NEUROLOGIC: No focal or lateralizing signs. PSYCH: Appropriate affect. Alert and oriented to person, place and time. SKIN: Well-perfused. Good skin turgor. Has panniculitis. ASSESSMENT: 1. Morbid obesity due to excess calories. 2. Body mass index reduced from 71.4 down to 34.1 3. Obstructive sleep apnea, resolved 4. Diabetes type 2, resolved 5. Osteoarthritis of the lower back, improved 6. Osteoarthritis of the bilateral knees, improved 7. Panniculitis. 8. Status post gastric bypass. 9. Vitamin D deficiency 10. Vitamin A deficiency 11. Inadequate protein intake 12. Zinc deficiency 13. Iron deficiency PLAN: 1. Follow-up in one week. 2. Additional prescription for pain meds appropriate with size of surgery including hernia repair. 3. [place] 7.53 days worth prescribed Objective - Vital Signs Vital signs: Intake & Output 10/09/18 10/10/18 10/10/18 18:59 06:59 18:59 Weight 75.841 kg
[2018-10-10 10:53] VITALS: BP 114/71; PULSE 81; TEMP 97.1; BMI 34.0
== END | disposition home or self-care (01) ==
LOC: BARWHC3 09:31
PROVIDERS: ATTEND Surgery Plastic and Reconstructive Surgery
DX: Z48.815 Encounter for surgical aftercare following surgery on the digestive system (principal); E66.01 Morbid (severe) obesity due to excess calories; M47.816 Spondylosis without myelopathy or radiculopathy, lumbar region; M17.0 Bilateral primary osteoarthritis of knee; M79.3 Panniculitis, unspecified; E55.9 Vitamin D deficiency, unspecified; E50.9 Vitamin A deficiency, unspecified; E46 Unspecified protein-calorie malnutrition; E60 Dietary zinc deficiency; E61.1 Iron deficiency; Z68.34 Body mass index [BMI] 34.0-34.9, adult; Z98.84 Bariatric surgery status
CPT/HCPCS: 99212

== ENCOUNTER → 2018-10-15 | Outpatient (CLI) | payer MEDICARE, OTHER ==
[2018-10-15 15:15] VITALS: BP 125/88; PULSE 60; RESP 16; TEMP 98.2; BMI 33.6
--- NOTE | 2018-10-15 18:20 | P.PN ---
Subjective Progress Note Date: 10/15/18 DATE OF SERVICE: 10/15/2018 CHIEF COMPLAINT: Panniculitis. HISTORY OF PRESENT ILLNESS: Talha Crawford is a 37-year-old female status post panniculectomy, 23 pounds, 10/03/2018. Patient reports "I've never seen my body like this before." No fevers or chills. Abdominal binder worn loosely noncompliant with education. No cellulitis or infection along panniculectomy sites. Abdominal binder refitted and snug with explicit instructions of firmly worn binder which was marked with a black marker. She is 2 weeks ago. At her height of 4 feet 10-3/4 inches, her ideal body weight is 118 pounds. Her highest weight was 350 pounds. Today she comes weighing 165 pounds from 167 pounds, 1 week ago. She has lost 2 pounds in 1 week. She has lost 185 pounds. Body mass index is reduced from 71.4 down to 33.6. She is 47 pounds overweight. Percent excess weight loss is 80%. PHYSICAL EXAM: VITAL SIGNS: 4 feet, 10-3/4 inch, 165 pounds. Body mass index of 33.6 Vital Signs Temp 98.2 F 10/15/18 15:10 Pulse 60 10/15/18 15:10 Resp 16 10/15/18 15:10 BP 125/88 10/15/18 15:10 Pulse Ox GENERAL: Well developed and in no acute distress. Pleasant. HEENT: No sclera icterus. Extraocular movements grossly intact. Moist buccal mucosa. Head is atraumatic, normocephalic. Hears conversational speech. No nasal drainage. NECK: Supple without lymphadenopathy. No JV distention. CHEST: Non-labored respirations and equal bilateral excursions. CARDIOVASCULAR: Regular rate and rhythm. Palpable 2+ radial pulses. ABDOMEN: Soft. Nondistended. No erythema cellulitis. External dressing discontinued. Abdominal binder refitted. JIM drains dark serosanguineous bilaterally. Dressings along JIM changed and cleaned with chloraprep. MUSCULOSKELETAL: No clubbing, cyanosis or edema. NEUROLOGIC: No focal or lateralizing signs. PSYCH: Appropriate affect. Alert and oriented to person, place and time. SKIN: Well-perfused. Good skin turgor. Has panniculitis. : Mild edema along the genitalia identified. ASSESSMENT: 1. Morbid obesity due to excess calories. 2. Body mass index reduced from 71.4 down to 33.6 3. Obstructive sleep apnea, resolved 4. Diabetes type 2, resolved 5. Osteoarthritis of the lower back, improved 6. Osteoarthritis of the bilateral knees, improved 7. Panniculitis. 8. Status post gastric bypass. 9. Vitamin D deficiency 10. Vitamin A deficiency 11. Inadequate protein intake 12. Zinc deficiency 13. Iron deficiency PLAN: 1. Follow-up in one week. Objective - Vital Signs Vital signs: Vital Signs Temp 98.2 F 10/15/18 15:10 Pulse 60 10/15/18 15:10 Resp 16 10/15/18 15:10 BP 125/88 10/15/18 15:10 Pulse Ox Intake & Output 10/14/18 10/15/18 10/15/18 18:59 06:59 18:59 Weight 74.843 kg
== END | disposition home or self-care (01) ==
LOC: BARWHC3 12:45
PROVIDERS: ATTEND Surgery Plastic and Reconstructive Surgery
DX: Z48.815 Encounter for surgical aftercare following surgery on the digestive system (principal); E66.01 Morbid (severe) obesity due to excess calories; M47.816 Spondylosis without myelopathy or radiculopathy, lumbar region; M17.0 Bilateral primary osteoarthritis of knee; M79.3 Panniculitis, unspecified; E55.9 Vitamin D deficiency, unspecified; E50.9 Vitamin A deficiency, unspecified; E60 Dietary zinc deficiency; E61.1 Iron deficiency; E46 Unspecified protein-calorie malnutrition; Z68.33 Body mass index [BMI] 33.0-33.9, adult; Z98.84 Bariatric surgery status; Z98.890 Other specified postprocedural states
CPT/HCPCS: 99212

== ENCOUNTER → 2018-10-22 | Outpatient (CLI) | payer MEDICARE, OTHER ==
[2018-10-22 13:00] VITALS: BP 125/78; PULSE 93; TEMP 97.6; BMI 33.5
--- NOTE | 2018-10-22 13:21 | P.GSHP ---
History of Present Illness H&P Date: 10/22/18 HPI: No fevers or chills. Minimal drainage from JPs less than 30 mL daily. She is very happy with her cosmetic appearance. She continues to lose weight over 175 pounds. ABDOMEN: No cellulitis. JPs removed after cleansing skin. Swelling along genitalia improved. ASSESSMENT: 1. Panniculitis PLAN: 1. Follow up in 1 week 2. Wear binder at all times Past Medical History Past Medical History: GERD/Reflux, Sleep Apnea/CPAP/BIPAP Additional Past Medical History / Comment(s): Hiatal hernia, bariatric surgery, panni Recent Iron and Mineral Infusions. History of Any Multi-Drug Resistant Organisms: None Reported Past Surgical History: Adenoidectomy, Bariatric Surgery, Section, Cholecystectomy, Tonsillectomy, Tubal Ligation Additional Past Surgical History / Comment(s): Section X2, gastric bypass 03-07-17, EGD,Panni panniculectomy 10-01-18 Past Anesthesia/Blood Transfusion Reactions: No Reported Reaction Additional Past Anesthesia/Blood Transfusion Reaction / Comment(s): No blood transfusion Past Psychological History: No Psychological Hx Reported Smoking Status: Never smoker Past Alcohol Use History: None Reported Past Drug Use History: None Reported - Past Family History Mother Family Medical History: No Reported History Father Family Medical History: Diabetes Mellitus Medications and Allergies Home Medications Medication Instructions Recorded Confirmed Type Multivitamin [Multivitamins Adult 1 tab PO DAILY 09/04/17 10/22/18 History Gummies] Ergocalciferol [Vitamin D2 50,000 unit PO Q7D #12 cap 08/13/18 10/22/18 Rx (DRISDOL)] Amitriptyline HCl [Elavil] 50 mg PO HS 08/20/18 10/22/18 History Iron (Unknown Dose) 1 tab PO DAILY 09/24/18 10/22/18 History Bisacodyl [Dulcolax] 5 mg PO DAILY PRN #10 tablet. 10/01/18 10/22/18 Rx HYDROcodone/APAP 5-325MG [[place] 1 tab PO Q4HR PRN 3 Days #18 tab 10/01/18 10/22/18 Rx 5-325] Cyclobenzaprine [Flexeril] 10 mg PO TID #30 tab 10/03/18 10/22/18 Rx HYDROcodone/APAP 7.5-325MG [[place] 1 tab PO Q4H PRN 3 Days #18 tab 10/10/18 10/22/18 Rx 7.5-325] Allergies Allergy/AdvReac Type Severity Reaction Status Date / Time No Known Allergies Allergy Verified 10/22/18 13:00 Surgical - Exam Vital Signs Temp Pulse BP 97.6 F 93 125/78 10/22/18 12:57 10/22/18 12:57 10/22/18 12:57
== END ==
LOC: BARWHC3 12:15
PROVIDERS: ATTEND Surgery Plastic and Reconstructive Surgery
DX: M79.3 Panniculitis, unspecified (principal); Z98.84 Bariatric surgery status; Z79.899 Other long term (current) drug therapy; Z79.891 Long term (current) use of opiate analgesic
CPT/HCPCS: 99212

== ENCOUNTER → 2018-10-29 | Outpatient (CLI) | payer MEDICARE, OTHER ==
[2018-10-29 16:00] VITALS: BP 141/88; PULSE 96; TEMP 97.6; BMI 33.5
--- NOTE | 2018-10-29 16:46 | P.PN ---
Subjective Progress Note Date: 10/29/18 DATE OF SERVICE: 10/29/2018 CHIEF COMPLAINT: Panniculitis. HISTORY OF PRESENT ILLNESS: Talha Crawford is a 37-year-old female status post panniculectomy, 23 pounds, 10/03/2018. She is 3 weeks out. She is very happy with her weight loss. She has no fluid with skin. No fevers or chills. At her height of 4 feet 10-3/4 inches, her ideal body weight is 118 pounds. Her highest weight was 350 pounds. Today she comes weighing 164 pounds from 163 pounds, 1 week ago. She has gained 1 pound in 1 week. She has lost 186 pounds, lifetime. Body mass index is reduced from 71.4 down to 33.5. She is 46 pounds overweight. Percent excess weight loss is 80%. PHYSICAL EXAM: VITAL SIGNS: 4 feet, 10-3/4 inch, 164 pounds. Body mass index of 33.5 Vital Signs Temp 97.6 F 10/29/18 15:55 Pulse 96 10/29/18 15:55 Resp BP 141/88 10/29/18 15:55 Pulse Ox GENERAL: Well developed and in no acute distress. Pleasant. HEENT: No sclera icterus. Extraocular movements grossly intact. Moist buccal mucosa. Head is atraumatic, normocephalic. Hears conversational speech. No nasal drainage. NECK: Supple without lymphadenopathy. No JV distention. CHEST: Non-labored respirations and equal bilateral excursions. CARDIOVASCULAR: Regular rate and rhythm. Palpable 2+ radial pulses. ABDOMEN: Incisions granulated. No seroma. No infection. MUSCULOSKELETAL: No clubbing, cyanosis or edema. NEUROLOGIC: No focal or lateralizing signs. PSYCH: Appropriate affect. Alert and oriented to person, place and time. SKIN: Well-perfused. Good skin turgor. Has panniculitis. : Mild edema along the genitalia identified. ASSESSMENT: 1. Morbid obesity due to excess calories. 2. Body mass index reduced from 71.4 down to 33.5 3. Obstructive sleep apnea, resolved 4. Diabetes type 2, resolved 5. Osteoarthritis of the lower back, improved 6. Osteoarthritis of the bilateral knees, improved 7. Panniculitis. 8. Status post gastric bypass. PLAN: 1. Continue to wear abdominal binder for 3 weeks. Objective - Vital Signs Vital signs: Vital Signs Temp 97.6 F 10/29/18 15:55 Pulse 96 10/29/18 15:55 Resp BP 141/88 10/29/18 15:55 Pulse Ox Intake & Output 10/28/18 10/29/18 10/29/18 18:59 06:59 18:59 Weight 74.525 kg
== END | disposition home or self-care (01) ==
LOC: BARWHC3 14:07
PROVIDERS: ATTEND Surgery Plastic and Reconstructive Surgery
DX: Z48.815 Encounter for surgical aftercare following surgery on the digestive system (principal); E66.01 Morbid (severe) obesity due to excess calories; M47.816 Spondylosis without myelopathy or radiculopathy, lumbar region; M17.0 Bilateral primary osteoarthritis of knee; M79.3 Panniculitis, unspecified; Z68.33 Body mass index [BMI] 33.0-33.9, adult; Z98.84 Bariatric surgery status
CPT/HCPCS: 99212

== ENCOUNTER → 2018-11-14 | Outpatient (CLI) | payer MEDICARE, OTHER ==
[2018-11-14 10:34] VITALS: BP 129/85; PULSE 86; TEMP 97.9; BMI 33.0
--- NOTE | 2018-11-14 14:34 | P.PN ---
Subjective Progress Note Date: 11/14/18 DATE OF SERVICE: 11/14/2018 CHIEF COMPLAINT: Panniculectomy HISTORY OF PRESENT ILLNESS: Talha Crawford is a 38-year-old female status post panniculectomy, 23 pounds, 10/03/2018. She is 1.5 months out. She is doing well. No recurrent seromas along the abdomen. In fact she is more active and running around with her child. No reports of pain. No fevers or chills. No infection. At her height of 4 feet 10-3/4 inches, her ideal body weight is 118 pounds. Her highest weight was 350 pounds. Today she comes weighing 162 pounds from 164 pounds, in 2 weeks. She has lost 2 pounds in 2 weeks. She has lost 188 pounds, lifetime. Body mass index is reduced from 71.4 down to 33.0. She is 44 pounds overweight. Percent excess weight loss is 81 %. PHYSICAL EXAM: VITAL SIGNS: 4 feet, 10-3/4 inch, 162 pounds. Body mass index of 33.0 Vital Signs Temp 97.9 F 11/14/18 10:31 Pulse 86 11/14/18 10:31 Resp BP 129/85 11/14/18 10:31 Pulse Ox GENERAL: Well developed and in no acute distress. Pleasant. HEENT: No sclera icterus. Extraocular movements grossly intact. Moist buccal mucosa. Head is atraumatic, normocephalic. Hears conversational speech. No nasal drainage. NECK: Supple without lymphadenopathy. No JV distention. CHEST: Non-labored respirations and equal bilateral excursions. CARDIOVASCULAR: Regular rate and rhythm. Palpable 2+ radial pulses. ABDOMEN: Incisions granulated. No seroma. No infection. MUSCULOSKELETAL: No clubbing, cyanosis or edema. NEUROLOGIC: No focal or lateralizing signs. PSYCH: Appropriate affect. Alert and oriented to person, place and time. SKIN: Well-perfused. Good skin turgor. Has panniculitis. : Mild edema along the genitalia identified. ASSESSMENT: 1. Morbid obesity due to excess calories. 2. Body mass index reduced from 71.4 down to 33.0 3. Obstructive sleep apnea, resolved 4. Diabetes type 2, resolved 5. Osteoarthritis of the lower back, improved 6. Osteoarthritis of the bilateral knees, improved 7. Panniculectomy, 23 pounds. 8. Status post gastric bypass. PLAN: 1. Follow up as needed. Objective - Vital Signs Vital signs: Vital Signs Temp 97.9 F 11/14/18 10:31 Pulse 86 11/14/18 10:31 Resp BP 129/85 11/14/18 10:31 Pulse Ox Intake & Output 11/13/18 11/14/18 11/14/18 18:59 06:59 18:59 Weight 73.482 kg
== END | disposition home or self-care (01) ==
LOC: BARWHC3 10:05
PROVIDERS: ATTEND Surgery Plastic and Reconstructive Surgery
DX: Z48.815 Encounter for surgical aftercare following surgery on the digestive system (principal); E66.01 Morbid (severe) obesity due to excess calories; M47.816 Spondylosis without myelopathy or radiculopathy, lumbar region; M17.0 Bilateral primary osteoarthritis of knee; Z68.33 Body mass index [BMI] 33.0-33.9, adult; Z98.84 Bariatric surgery status; Z98.890 Other specified postprocedural states
CPT/HCPCS: 99211

== ENCOUNTER → 2019-05-13 | Outpatient (CLI) | payer MEDICARE, OTHER ==
[2019-05-13 11:28] VITALS: BP 146/102; PULSE 78; RESP 16
--- NOTE | 2019-05-13 14:13 | P.PAINCN ---
History of Present Illness - Reason for Consult Consult date: 05/13/19 - History of Present Illness This is a 38-year-old patient referred by primary care provider Angelique Hightower with a chief complaint of chronic pain in bilateral anterior knees which has been present for over 20 years. She reports an incident when she was 16-year-old on a trampoline, she fell and at that time injured her knees. She underwent a left knee scope when she was 17, and did not experience any significant benefit from this. She has also been to physical therapy for her knees, last done about 2-3 years ago. Of note, she follows with Dr. Presley and has lost 200 pounds over the last several months. She has been more active since then and has been walking and biking, however her knee pain is limiting her to a significant extent. She has had cortisone shots done to bilateral k nees, last done over 2 years ago, with minimal benefit. She has also tried several different medications like Biofreeze, Tylenol, tramadol with codeine. She was also on Bingen, which worked to an extent. She is currently not on any narcotics. She is currently following with an orthopedic surgeon at [place] and is scheduled to undergo bilateral knee steroid injections tomorrow. Patient also denies new-onset weakness, bowel/bladder incontinence, or any other signs or symptoms of cauda equina syndrome. There are no signs of acute intoxication, and no indications of medication diversion or overuse. Patient notes that pain worsens significantly with walking, and improves with rest. Pain rated as 10/10 stop In addition to above, 13-point review of systems is also negative for chest pain, shortness of breath, changes in vision, changes in hearing, new onset weakness, abdominal pain, diarrhea, extreme fatigue, malaise, fever, skin changes, homicidal or suicidal ideation, or bowel or bladder incontinence. Past Medical History Past Medical History: GERD/Reflux, Musculoskeletal Disorder, Osteoarthritis (OA), Sleep Apnea/CPAP/BIPAP Additional Past Medical History / Comment(s): no longer needs CPAP, sleep apnea resolved, has lost >200 lbs., bilateral knee pain from injuries years ago History of Any Multi-Drug Resistant Organisms: None Reported Past Surgical History: Adenoidectomy, Bariatric Surgery, Section, Cholecystectomy, Tonsillectomy, Tubal Ligation Additional Past Surgical History / Comment(s): 2 c sect ,gastric bypass 03-07-17 Past Anesthesia/Blood Transfusion Reactions: No Reported Reaction Additional Past Anesthesia/Blood Transfusion Reaction / Comm: No blood transfusion Smoking Status: Never smoker - Past Family History Mother Family Medical History: No Reported History Father Family Medical History: Diabetes Mellitus Medications and Allergies Home Medications Medication Instructions Recorded Confirmed Type Multivitamin [Multivitamins Adult 1 tab PO DAILY 09/04/17 05/13/19 History Gummies] Amitriptyline HCl [Elavil] 50 mg PO HS 08/20/18 05/13/19 History Iron (Unknown Dose) 1 tab PO DAILY 09/24/18 05/13/19 History Bisacodyl [Dulcolax] 5 mg PO DAILY PRN #10 tablet. 10/01/18 05/13/19 Rx Cyclobenzaprine [Flexeril] 10 mg PO TID #30 tab 10/03/18 05/13/19 Rx traMADol HCL [Ultram] 50 mg PO Q6HR PRN 05/11/19 05/13/19 History Allergies Allergy/AdvReac Type Severity Reaction Status Date / Time No Known Allergies Allergy Verified 05/13/19 11:21 Physical Exam Physical exam: Vital Signs: Reviewed in EMR GENERAL: Well appearing, in no acute distress PSYCH: Mood and affect is appropriate. Awake, alert, and oriented SKIN: Skin color, texture, turgor normal, no rashes or lesions HEENT: Normocephalic, atraumatic. EOM intact CV: No pedal edema RESP: Respirations are unlabored, no audible wheezing GI: Abdomen non-distended MUSCULOSKELETAL: Bilateral lower extremity strength is normal and symmetric. No atrophy or tone abnormalities are noted. Extremities: Bilateral knee tenderness to palpation along medial joint line. Positive crepitus bilaterally. Passive range of motion is not pain limited. No obvious swellings. Anterior drawer test negative. Left knee arthroscopy scars well-healed. No edema or skin discolorations noted. Gait: Gait is slow, antalgic NEUR: Bilateral lower extremity coordination and muscle stretch reflexes are physiologic and symmetric. Negative clonus. No loss of sensation is noted. Cranial nerves are grossly intact. Results Results: Imaging: Right knee MRI done on 03/13/2019 at [facility] MRI shows complex tear of the medial meniscus and bicompartmental chondromalacia and osteoarthritis, most pronounced in the medial tibial femoral compartment. Small joint effusion Assessment and Plan Assessment: 1. Bilateral knee osteoarthritis 2. Morbid obesity, status post surgery, current BMI 30 Plan: 1. Explanation: Patient was instructed to keep her appointment with orthopedic surgeon, and undergo cortisone injections. If no significant benefit from these injections, patient was told to call and schedule below mentioned procedure with our clinic. She states that her orthopedic surgeons are extremely hesitant to replace her knees, given her young age. I agree with trying all possible interventions prior to proceeding with total knee replacements. 2. Opioid agreement: None 3. Counseling: The patient was counseled extensively on the importance of EXERCISE and knee exercises. 4. Procedures: If no benefit from cortisone injections with orthopedic surgeon, we will schedule the patient for diagnostic bilateral genicular nerve blocks [superomedial, inferomedial, superolateral genicular nerves] 2, followed by radiofrequency ablation if significant benefit. We also did discuss PRP therapy, and possible referral to our [place] pain clinic for this. I explained to her that this is entirely experimental, however patient reported good benefit from it. 5. Consultations: Referral given for physical therapy for knee exercises 6. Investigations: None, MRI reviewed 7. Medications: I told her to take [id number] Tylenol, up to 3 g per day. She cannot take NSAIDs due to prior gastric bypass. 8. Disposition: When necessary for above-mentioned procedure Time with Patient: Less than 30 PQRS Measure Charge Sheet Measure #130: Documentation of Current Meds in Medical Chart: Patient's medications documented in chart Measure #226: Tobacco Use: Screen & Cessation Intervention: Pt not a tobacco user Measure #111: Pneumonia Vaccination: Pneumococcal vaccine NOT administered or previously given Measure #47: Advance Care Plan: Advance care planning discussed & documented, pt chose/unable to give Measure #412: Opioid Treatment Agreement: No documentation of signed opioid treatment agreement Measure #317: Preventitive Care & Scrn High Bld Press & F/U: Pre-hypertensive or hypertensive BP documented, pt will f/u with PCP Measure #128: Body Mass Index (BMI) Screening & Follow-up: BMI documented ABOVE normal parameters - f/u documented Measure #131: Pain Assessment & Follow-up: Pain positive & plan documented, Follow-up PRN Measure #431: Unhealthy Alcohol Use Preventative Care & Scrn: Patient not identified as an unhealthy alcohol user PQRS Narrative: Smoking Status Never smoker Pain Intensity [Bilateral Knee 10 ] Scale Used Numeric (1 - 10) Hx Alcohol Use (MH) No Home Medications: Ambulatory Orders Multivitamin [Multivitamins Adult Gummies] 1 tab PO DAILY 09/04/17 Amitriptyline HCl [Elavil] 50 mg PO HS 08/20/18 Iron (Unknown Dose) 1 tab PO DAILY 09/24/18 Bisacodyl [Dulcolax] 5 mg PO DAILY PRN #10 tablet. 10/01/18 Cyclobenzaprine [Flexeril] 10 mg PO TID #30 tab 10/03/18 traMADol HCL [Ultram] 50 mg PO Q6HR PRN 05/11/19
== END | disposition home or self-care (01) ==
LOC: PNWHC3 11:02
PROVIDERS: ATTEND Anesthesiology
DX: G89.29 Other chronic pain (principal); M17.0 Bilateral primary osteoarthritis of knee; E66.01 Morbid (severe) obesity due to excess calories; Z68.30 Body mass index [BMI] 30.0-30.9, adult; Z79.899 Other long term (current) drug therapy
CPT/HCPCS: 99211

== ENCOUNTER → 2019-09-30 | Outpatient (CLI) | payer MEDICARE, OTHER ==
[2019-09-30 13:29] VITALS: BP 135/85; PULSE 83; TEMP 97.1; BMI 28.3
--- NOTE | 2019-09-30 13:42 | P.PN ---
Subjective Progress Note Date: 09/30/19 DATE OF SERVICE: 09/30/2019 CHIEF COMPLAINT: Status post gastric bypass HISTORY OF PRESENT ILLNESS: Talha Crawford now Talha Ramos is a 39-year-old female status post gastric bypass, 03/07/2017 and status post panniculectomy, 23 pounds, 10/03/2018. She is over 2 years out from her bariatric procedure. She comes in with more weight loss. Her BMI is less than 30. "This is the smallest I have ever been even as a kid!" She is down from 350 pounds to 139 pounds. She is very happy with her weight loss. Her children are supportive of her physical changes. She comes in with her concerns of her thighs with severe rubbing, chaffing, sores, and trouble with voiding completely as a result of her skin. She reports challenges of support of her other family members. She is taking protein shots. Her protein intake is 52+ grams of protein daily. She denies hair loss. No abdominal pain. She takes her multivitamins. She feels great! She reports sores along her thighs. She reports restless leg syndrome. She has skin sores on her thighs where she is seeking skin removal surgery. She reports some relief with Nystatin powder and Monkey Butt. She reports knee pain and back pain. She reports easy tearfulness. At her height of 4 feet 10-3/4 inches, her ideal body weight is 118 pounds. Her highest weight was 350 pounds. Today she comes weighing 139 pounds from 162 pounds, 1 year ago. She has lost 21 pounds in 1 year. She has lost 211 pounds, lifetime. Body mass index is reduced from 71.4 down to 28.3. She is 21 pounds overweight. Percent excess weight loss is 91 %. PAST MEDICAL HISTORY: 1. Morbid obesity due to excess calories, BMI 71.4, initial 2. Obstructive sleep apnea. 3. Osteoarthritis of the lower back. 4. Osteoarthritis of the bilateral knees. 5. Panniculitis. 6. Diabetes type 2. PAST SURGICAL HISTORY: 1. Cholecystectomy. 2. section. 3. Upper endoscopy. 4. Gastric bypass, 03/07/2017 5. Umbilical hernia repair 6. Panniculectomy, 10/03/2018 MEDICATIONS: 1. Omeprazole 2. Multivitamin 3. Marcy 4. Vitamin A 5. Thiamine 6. Nystatin powder ALLERGIES: Denies. SOCIAL HISTORY: Lifelong nontobacco user. FAMILY HISTORY: Pertinent for morbid obesity. She denies any Crohn's disease or ulcerative colitis. Also has diabetes in her family. REVIEW OF SYSTEMS: CONSTITUTIONAL: At her height of 4 feet 10-3/4 inches, her ideal body weight is 118 pounds. Her highest weight was 350 pounds. Body mass index is reduced from 71.4. MUSCULOSKELETAL: Severe lower back pain and bilateral knee pain, improving. GASTROINTESTINAL: Gastroesophageal reflux disease results. No dumping syndrome. HEENT: Denies any troubles with vision, hearing or dysphagia. ENDOCRINE: No report of thyroid disorder. Diabetes type 2, resolved. RESPIRATORY: Denies any recent dyspnea on exertion. Obstructive sleep apnea resolved. CARDIOVASCULAR: No reports of chest pain or heart attack. NEURO: No reports of stroke or seizure disorders. PSYCH: Denies depression or suicidal ideation. HEMATOLOGIC: Denies any easy bruising or bleeding. SKIN: No cancer. Rash of the pannus now resolved with panniculectomy. Now worsening sores along the thighs PHYSICAL EXAM: VITAL SIGNS: 4 feet, 10-3/4 inch, 139 pounds. Body mass index of 28.3 Vital Signs Temp 97.1 F L 09/30/19 13:26 Pulse 83 09/30/19 13:26 Resp BP 135/85 09/30/19 13:26 Pulse Ox Intake & Output 09/30/19 09/30/19 10/01/19 06:59 18:59 06:59 Weight 63.095 kg GENERAL: Well developed and in no acute distress. Pleasant. HEENT: No sclera icterus. Extraocular movements grossly intact. Moist buccal mucosa. Head is atraumatic, normocephalic. Hears conversational speech. No nasal drainage. NECK: Supple without lymphadenopathy. No JV distention. CHEST: Non-labored respirations and equal bilateral excursions. CARDIOVASCULAR: Regular rate and rhythm. Palpable 2+ radial pulses. ABDOMEN: Incisions granulated. No infection. No hernia. MUSCULOSKELETAL: No clubbing, cyanosis or edema. NEUROLOGIC: No focal or lateralizing signs. PSYCH: Appropriate affect. Alert and oriented to person, place and time. SKIN: Well-perfused. Good skin turgor. Has panniculitis of the thigh with excess skin of the proximal thighs : Mild edema along the genitalia identified. LABS: Bariatric labs reviewed with iron deficiency anemia. ASSESSMENT: 1. Morbid obesity due to excess calories. 2. Body mass index reduced from 71.4 down to 33.0 3. Obstructive sleep apnea, resolved 4. Diabetes type 2, resolved 5. Osteoarthritis of the lower back, improved 6. Osteoarthritis of the bilateral knees, improved 7. Panniculectomy, 23 pounds. 8. Status post gastric bypass. 9. Panniculitis of the thighs PLAN: 1. Nystatin powder for panniculitis of the thighs. 2. Recommend referral to plastic surgery for thighplasty. 3. For severe knee arthritis, recommend referral to orthopedic. 4. Bariatric labs for nutritional deficiency 5. For her osteoarthritis of the back, recommend abdominal aed trainer to help with her posture of back pain. Objective - Vital Signs Vital signs: Vital Signs Temp 97.1 F L 09/30/19 13:26 Pulse 83 09/30/19 13:26 Resp BP 135/85 09/30/19 13:26 Pulse Ox Intake & Output 09/29/19 09/30/19 09/30/19 18:59 06:59 18:59 Weight 63.095 kg
== END | disposition home or self-care (01) ==
LOC: BARWHC3 12:41
PROVIDERS: ATTEND Surgery Plastic and Reconstructive Surgery
DX: E66.01 Morbid (severe) obesity due to excess calories (principal); Z68.33 Body mass index [BMI] 33.0-33.9, adult; G25.81 Restless legs syndrome; F17.200 Nicotine dependence, unspecified, uncomplicated; Z90.49 Acquired absence of other specified parts of digestive tract; Z98.890 Other specified postprocedural states; Z98.84 Bariatric surgery status; Z79.891 Long term (current) use of opiate analgesic; Z79.899 Other long term (current) drug therapy
CPT/HCPCS: 97803; G0463; 99211

== ENCOUNTER → 2019-10-05 | Outpatient (CLI) | payer MEDICARE, OTHER ==
[2019-10-05 10:11] LABS: HCT 40.8 % (34.0-46.0); HGB 13.1 gm/dL (11.4-16.0); MCH 29.1 pg (25.0-35.0); Mean Platelet Volume 8.8; Platelet Count 197 k/uL (150-450); RBC 4.49 m/uL (3.80-5.40); WBC 6.1 k/uL (3.8-10.6)
[2019-10-05 10:23] LABS: INR 1.3 (<1.2); Prothrombin Time 13.1 sec (9.0-12.0)
[2019-10-05 10:24] LABS: Partial Thromboplastin Time 23.1 sec (22.0-30.0)
[2019-10-05 14:59] LABS: % Iron Saturation 14.94 (12.00-45.00); African American GFR (CKD) 140.3 (60.0-200.0); Albumin 4.1 g/dL (3.80-4.90); Albumin/Globulin Ratio 2.16 (1.60-3.17); Anion Gap 6.9 mmol/L (4.00-12.00); Carbon Dioxide 25.1 mmol/L (21.6-31.8); Chol/HDL Ratio 2.4; Globulin 1.9 g/dL (1.6-3.3); LDL Cholesterol,Calculated 55.2 mg/dL (0.0-131.0); Magnesium 1.8 mg/dL (1.5-2.4); Non-African American GFR(CKD) 121.1 (60.0-200.0); Phosphorus 3.8 mg/dL (2.4-5.1); Total Bilirubin 0.3 mg/dL (0.3-1.2); VLDL Calculation 17.8 mg/dL (5.00-40.00)
[2019-10-05 15:10] LABS: Folate, Serum 12.4 ng/mL
[2019-10-05 20:15] LABS: Hemoglobin A1C 5.5 % (4.0-6.0)
[2019-10-06 10:51] LABS: Vitamin A 28 ug/dL (38-106)
[2019-10-06 11:41] LABS: Zinc, Serum 66 ug/dL (60-130)
[2019-10-07 10:27] LABS: Vit B1(Thiamine) 47 ug/L (38-122)
== END | disposition home or self-care (01) ==
LOC: LABWHC1 09:37
PROVIDERS: ATTEND Surgery Plastic and Reconstructive Surgery
DX: E21.1 Secondary hyperparathyroidism, not elsewhere classified (principal); E89.1 Postprocedural hypoinsulinemia; D50.9 Iron deficiency anemia, unspecified; E44.0 Moderate protein-calorie malnutrition; K74.1 Hepatic sclerosis; N19 Unspecified kidney failure; K50.90 Crohn's disease, unspecified, without complications; E66.01 Morbid (severe) obesity due to excess calories; E55.9 Vitamin D deficiency, unspecified; Z51.81 Encounter for therapeutic drug level monitoring
CPT/HCPCS: 36415; 80053; 80061; 82306; 82525; 82607; 82728; 82746; 83036; 83540; 83550; 83735; 83970; 84100; 84134; 84255; 84425; 84443; 84590; 84630; 85027; 85610; 85730

== ENCOUNTER → 2020-04-20 | Outpatient (CLI) | payer MEDICARE, OTHER ==
[2020-04-20 11:24] VITALS: BP 137/82; PULSE 73; TEMP 98.2; BMI 28.5
--- NOTE | 2020-04-20 12:18 | P.PN ---
Subjective Progress Note Date: 04/20/20 DATE OF SERVICE: 04/20/2020 CHIEF COMPLAINT: Status post gastric bypass HISTORY OF PRESENT ILLNESS: Talha Crawford now Talha Ramos is a 39-year-old female status post gastric bypass, 03/07/2017 and status post panniculectomy, 23 pounds, 10/03/2018. She is 3 years out. She feels well. She has lost most of her weight. She had bilateral breast reduction. She is looking into skin removal of her thighs. She is looking into brachioplasty as well. She is getting her knees done for her osteoarthritis of the knees. No reports of gastroesophageal reflux disease. She reports food getting stuck. She presents with new dysphagia. At her height of 4 feet 10-3/4 inches, her ideal body weight is 118 pounds. Her highest weight was 350 pounds. Today she comes weighing 140 pounds from 139 pounds, 6 months ago. Her weight is unchanged after 6 months. She has lost 211 pounds, lifetime. Body mass index is reduced from 71.4 down to 28.5. She is 21 pounds overweight. Percent excess weight loss is 91 %. PAST MEDICAL HISTORY: 1. Morbid obesity due to excess calories, BMI 71.4, initial 2. Obstructive sleep apnea. 3. Osteoarthritis of the lower back. 4. Osteoarthritis of the bilateral knees. 5. Panniculitis. 6. Diabetes type 2. PAST SURGICAL HISTORY: 1. Cholecystectomy. 2. section. 3. Upper endoscopy. 4. Gastric bypass, 03/07/2017 5. Umbilical hernia repair 6. Panniculectomy, 10/03/2018 MEDICATIONS: 1. Omeprazole 2. Multivitamin 3. Ransom 4. Vitamin A 5. Thiamine 6. Nystatin powder ALLERGIES: Denies. SOCIAL HISTORY: Lifelong nontobacco user. FAMILY HISTORY: Pertinent for morbid obesity. She denies any Crohn's disease or ulcerative colitis. Also has diabetes in her family. REVIEW OF SYSTEMS: CONSTITUTIONAL: At her height of 4 feet 10-3/4 inches, her ideal body weight is 118 pounds. Her highest weight was 350 pounds. Body mass index is reduced from 71.4. MUSCULOSKELETAL: Severe lower back pain and bilateral knee pain, improving. GASTROINTESTINAL: Gastroesophageal reflux disease results. No dumping syndrome. HEENT: Denies any troubles with vision, hearing or dysphagia. ENDOCRINE: No report of thyroid disorder. Diabetes type 2, resolved. RESPIRATORY: Denies any recent dyspnea on exertion. Obstructive sleep apnea resolved. CARDIOVASCULAR: No reports of chest pain or heart attack. NEURO: No reports of stroke or seizure disorders. PSYCH: Denies depression or suicidal ideation. HEMATOLOGIC: Denies any easy bruising or bleeding. SKIN: No cancer. Rash of the pannus now resolved with panniculectomy. Now worsening sores along the thighs PHYSICAL EXAM: VITAL SIGNS: 4 feet, 10-3/4 inch, 140 pounds. Body mass index of 28.5 Vital Signs Temp 98.2 F 04/20/20 11:13 Pulse 73 04/20/20 11:13 Resp BP 137/82 04/20/20 11:13 Pulse Ox GENERAL: Well developed and in no acute distress. Pleasant. HEENT: No sclera icterus. Extraocular movements grossly intact. Moist buccal mucosa. Head is atraumatic, normocephalic. Hears conversational speech. No nasal drainage. NECK: Supple without lymphadenopathy. No JV distention. CHEST: Non-labored respirations and equal bilateral excursions. CARDIOVASCULAR: Regular rate and rhythm. Palpable 2+ radial pulses. ABDOMEN: Incisions granulated. No infection. No hernia. MUSCULOSKELETAL: No clubbing, cyanosis or edema. NEUROLOGIC: No focal or lateralizing signs. PSYCH: Appropriate affect. Alert and oriented to person, place and time. SKIN: Well-perfused. Good skin turgor. ASSESSMENT: 1. Morbid obesity due to excess calories. 2. Body mass index reduced from 71.4 down to 33.0 3. Obstructive sleep apnea, resolved 4. Diabetes type 2, resolved 5. Osteoarthritis of the lower back, improved 6. Osteoarthritis of the bilateral knees, improved 7. Panniculectomy, 23 pounds. 8. Status post gastric bypass. 9. Panniculitis of the thighs PLAN: 1. She comes in with dysphagia. Recommend upper endoscopy with possible dilation. 2/ Recommend referral to board certified plastic surgeon for brachioplasty and thighplasty. Objective - Vital Signs Vital signs: Vital Signs Temp 98.2 F 04/20/20 11:13 Pulse 73 04/20/20 11:13 Resp BP 137/82 04/20/20 11:13 Pulse Ox Intake & Output 04/19/20 04/20/20 04/20/20 18:59 06:59 18:59 Weight 63.412 kg
== END | disposition home or self-care (01) ==
LOC: BARWHC3 10:09
PROVIDERS: ATTEND Surgery Plastic and Reconstructive Surgery
DX: Z48.815 Encounter for surgical aftercare following surgery on the digestive system (principal); E66.01 Morbid (severe) obesity due to excess calories; M17.0 Bilateral primary osteoarthritis of knee; M79.3 Panniculitis, unspecified; Z68.33 Body mass index [BMI] 33.0-33.9, adult; Z98.890 Other specified postprocedural states; Z98.84 Bariatric surgery status; Z79.891 Long term (current) use of opiate analgesic; Z79.899 Other long term (current) drug therapy
CPT/HCPCS: 99211

== ENCOUNTER → 2020-05-11 | Outpatient (CLI) | payer MEDICARE, OTHER ==
[2020-05-11 15:28] VITALS: BP 150/85; PULSE 75; RESP 16; TEMP 97.8; BMI 28.9
--- NOTE | 2020-05-11 15:41 | P.PN ---
Subjective Progress Note Date: 05/11/20 DATE OF SERVICE: 05/11/2020 CHIEF COMPLAINT: Status post gastric bypass HISTORY OF PRESENT ILLNESS: Talha Ramos is a 39-year-old female status post gastric bypass, 03/07/2017. She is 3 years out. She comes in following small bowel obstruction from [place] with internal hernia. She has done well. She was discharged within 2 days. She denies any previous episodes of abdominal until 4 days following her last visit. She is due for bilateral knee replacement. At her height of 4 feet 10-3/4 inches, her ideal body weight is 118 pounds. Her highest weight was 350 pounds. Today she comes weighing 142 pounds from 140 pounds, 3 weeks ago. She has gained 2 pounds in 1 month. She has lost 208 pounds, lifetime. Body mass index is reduced from 71.4 down to 28.9. She is 24 pounds overweight. Percent excess weight loss is 90 %. PHYSICAL EXAM: VITAL SIGNS: 4 feet, 10-3/4 inch, 142 pounds. Body mass index of 28.9 Vital Signs Temp 97.8 F 05/11/20 15:25 Pulse 75 05/11/20 15:25 Resp 16 05/11/20 15:25 BP 150/85 05/11/20 15:25 Pulse Ox GENERAL: Well developed and in no acute distress. Pleasant. HEENT: No sclera icterus. Extraocular movements grossly intact. Moist buccal mucosa. Head is atraumatic, normocephalic. Hears conversational speech. No nasal drainage. NECK: Supple without lymphadenopathy. No JV distention. CHEST: Non-labored respirations and equal bilateral excursions. CARDIOVASCULAR: Regular rate and rhythm. Palpable 2+ radial pulses. ABDOMEN: Her incisions are intact and healing. MUSCULOSKELETAL: No clubbing, cyanosis or edema. NEUROLOGIC: No focal or lateralizing signs. PSYCH: Appropriate affect. Alert and oriented to person, place and time. SKIN: Well-perfused. Good skin turgor. ASSESSMENT: 1. Morbid obesity due to excess calories. 2. Body mass index reduced from 71.4 down to 28.9 3. Obstructive sleep apnea, resolved 4. Diabetes type 2, resolved 5. Osteoarthritis of the lower back, improved 6. Osteoarthritis of the bilateral knees, improved 7. Panniculectomy, 23 pounds. 8. Status post gastric bypass. 9. Panniculitis of the thighs 10. Small bowel obstruction PLAN: 1. Her abdominal pain is resolved. 2. Follow up as needed Objective - Vital Signs Vital signs: Vital Signs Temp 97.8 F 05/11/20 15:25 Pulse 75 05/11/20 15:25 Resp 16 05/11/20 15:25 BP 150/85 05/11/20 15:25 Pulse Ox Intake & Output 05/10/20 05/11/20 05/11/20 18:59 06:59 18:59 Weight 64.41 kg
== END | disposition home or self-care (01) ==
LOC: BARWHC3 15:00
PROVIDERS: ATTEND Surgery Plastic and Reconstructive Surgery
DX: E66.01 Morbid (severe) obesity due to excess calories (principal); M47.9 Spondylosis, unspecified; M17.0 Bilateral primary osteoarthritis of knee; M79.3 Panniculitis, unspecified; K56.609 Unspecified intestinal obstruction, unspecified as to partial versus complete obstruction; Z68.28 Body mass index [BMI] 28.0-28.9, adult; Z98.84 Bariatric surgery status
CPT/HCPCS: 17999; G0463; 99211

== ENCOUNTER 2021-04-30 17:05 | Emergency (ER) | payer MEDICARE, OTHER ==
[2021-04-30 17:32] VITALS: BP 128/91; PULSE 82; RESP 16; TEMP 98
--- NOTE | 2021-04-30 17:36 | ED ---
General Adult HPI - General Chief complaint: Abdominal Pain Stated complaint: Abdominal pain Time Seen by Provider: 04/30/21 17:31 Source: patient, EMS Mode of arrival: EMS Limitations: no limitations - History of Present Illness Initial comments: Patient presents to the ED by ambulance for evaluation with her friends at bedside. Patient states that she has had waxing and waning left upper quadrant abdominal pain since this morning. Patient states that her pain has become more intense over the past couple of hours. Patient states that her pain is worse with PO intake. Patient was given a dose of IV fentanyl by EMS, and she states that her pain has now improved to 5/10 in severity. Patient denies having any associated symptoms. Patient denies trauma or injury, fever or chills, chest pain, dyspnea, pleuritic pain, cough or cold symptoms, palpitations, dizziness, lower abdominal pain, back pain, nausea or vomiting, diarrhea or constipation, bloody or melanotic stool, dysuria/hematuria/urinary frequency/urinary symptoms, or any other symptoms or complaints. - Related Data Home Medications Medication Instructions Recorded Confirmed Cholecalciferol [Vitamin D3 (25 25 mcg PO DAILY 04/30/21 04/30/21 Mcg = 1000 Iu)] Ferrous Sulfate [Feosol] 325 mg PO DAILY 04/30/21 04/30/21 HYDROcodone/APAP 5-325MG [[place] 1 tab PO BID PRN 04/30/21 04/30/21 5-325] Allergies Allergy/AdvReac Type Severity Reaction Status Date / Time No Known Allergies Allergy Verified 04/30/21 18:12 Review of Systems ROS Statement: Those systems with pertinent positive or pertinent negative responses have been documented in the HPI. ROS Other: All systems not noted in ROS Statement are negative. Past Medical History Past Medical History: GERD/Reflux, Musculoskeletal Disorder, Osteoarthritis (OA), Sleep Apnea/CPAP/BIPAP Additional Past Medical History / Comment(s): no longer needs CPAP, sleep apnea resolved, has lost >200 lbs., bilateral knee pain from injuries years ago History of Any Multi-Drug Resistant Organisms: None Reported Past Surgical History: Adenoidectomy, Bariatric Surgery, Section, Cholecystectomy, Tonsillectomy, Tubal Ligation Additional Past Surgical History / Comment(s): 2 c sect ,gastric bypass 03-07-17; breast reduction surgery 03/04/2020 Past Anesthesia/Blood Transfusion Reactions: No Reported Reaction Additional Past Anesthesia/Blood Transfusion Reaction / Comment(s): No blood transfusion Past Psychological History: No Psychological Hx Reported Smoking Status: Never smoker Past Alcohol Use History: None Reported Past Drug Use History: None Reported - Past Family History Mother Family Medical History: No Reported History Father Family Medical History: Diabetes Mellitus General Exam Limitations: no limitations General appearance: alert, in no apparent distress Head exam: Present: atraumatic, normocephalic Eye exam: Present: normal appearance, EOMI ENT exam: Present: mucous membranes moist Neck exam: Present: other (Trachea is in midline) Respiratory exam: Present: normal lung sounds bilaterally. Absent: respiratory distress, wheezes, rales, rhonchi, stridor Cardiovascular Exam: Present: regular rate, normal rhythm, normal heart sounds, other (Normal radial pulses bilaterally) GI/Abdominal exam: Present: soft, normal bowel sounds, other (Moderate epigastric and left upper quadrant abdominal tenderness). Absent: distended, guarding, rebound Extremities exam: Absent: tenderness, pedal edema, calf tenderness Back exam: Absent: CVA tenderness (R), CVA tenderness (L) Neurological exam: Present: alert, oriented X3. Absent: motor sensory deficit Psychiatric exam: Present: normal affect, normal mood Skin exam: Present: warm, dry, intact, normal color Course Vital Signs 04/30/21 17:31 Temperature 98 F Pulse Rate 82 Respiratory 16 Rate Blood Pressure 128/91 O2 Sat by Pulse 99 Oximetry - Reevaluation(s) Reevaluation #1: 04/30/21 20:21 Patient states that her pain has improved with ED treatment, and she denies development of any new symptoms while in the ED. Patient remains alert and breathing comfortably. Patient's abdomen remains soft and without any surgical signs on examination. Patient and friends are aware of the patient's test results, and patient feels couple going home with her friends at this time. Patient states that she just finished her period today, which likely explains the blood noted on her UA results. Patient was counseled about abdominal pain, and she was clearly explained return and follow-up instructions. Patient was instructed to follow up closely with her primary care provider. Patient feels comfortable with this plan. Medical Decision Making - Medical Decision Making Patient is afebrile and without leukocytosis. Patient has a nonsurgical abdominal exam. Patient's CT abdomen/pelvis is negative. Patient's labs are fairly unremarkable. I do not think that the patient has a surgical or emergent medical condition at this time. Will discharge patient home with her friends at this time. - Lab Data Result diagrams: 04/30/21 18:08 04/30/21 18:08 Lab Results 04/30/21 04/30/21 04/30/21 Range/Units 18:08 18:08 18:08 WBC 6.7 (3.8-10.6) k/uL RBC 4.44 (3.80-5.40) m/uL Hgb 11.5 (11.4-16.0) gm/dL Hct 36.1 (34.0-46.0) % MCV 81.3 (80.0-100.0) fL MCH 25.9 (25.0-35.0) pg MCHC 31.8 (31.0-37.0) g/dL RDW 14.8 (11.5-15.5) % Plt Count 257 (150-450) k/uL MPV 7.7 Neutrophils % 62 % Lymphocytes % 30 % Monocytes % 5 % Eosinophils % 1 % Basophils % 0 % Neutrophils # 4.1 (1.3-7.7) k/uL Lymphocytes # 2.0 (1.0-4.8) k/uL Monocytes # 0.4 (0-1.0) k/uL Eosinophils # 0.1 (0-0.7) k/uL Basophils # 0.0 (0-0.2) k/uL Sodium 135 L (137-145) mmol/L Potassium 4.1 (3.5-5.1) mmol/L Chloride 104 (98-107) mmol/L Carbon Dioxide 23 (22-30) mmol/L Anion Gap 8 mmol/L BUN 18 H (7-17) mg/dL Creatinine 0.45 L (0.52-1.04) mg/dL Est GFR (CKD-EPI)AfAm >90 (>60 ml/min/1.73 sqM) Est GFR (CKD-EPI)NonAf >90 (>60 ml/min/1.73 sqM) Glucose 96 (74-99) mg/dL Plasma Lactic Acid Ernie 1.1 (0.7-2.0) mmol/L Calcium 8.4 (8.4-10.2) mg/dL Total Bilirubin 0.2 (0.2-1.3) mg/dL AST 23 (14-36) U/L ALT 12 (4-34) U/L Alkaline Phosphatase 101 (38-126) U/L Total Protein 6.4 (6.3-8.2) g/dL Albumin 3.7 (3.5-5.0) g/dL Amylase 43 (30-110) U/L Lipase 146 (23-300) U/L Urine Color Urine Appearance (Clear) Urine pH (5.0-8.0) Ur Specific [place] (1.001-1.035) Urine Protein (Negative) Urine Glucose (UA) (Negative) Urine Ketones (Negative) Urine Blood (Negative) Urine Nitrite (Negative) Urine Bilirubin (Negative) Urine Urobilinogen (<2.0) mg/dL Ur Leukocyte Esterase (Negative) Urine RBC (0-5) /hpf Urine WBC (0-5) /hpf Ur Squamous Epith Cells (0-4) /hpf Urine Bacteria (None) /hpf Urine Mucus (None) /hpf 04/30/21 Range/Units 19:30 WBC (3.8-10.6) k/uL RBC (3.80-5.40) m/uL Hgb (11.4-16.0) gm/dL Hct (34.0-46.0) % MCV (80.0-100.0) fL MCH (25.0-35.0) pg MCHC (31.0-37.0) g/dL RDW (11.5-15.5) % Plt Count (150-450) k/uL MPV Neutrophils % % Lymphocytes % % Monocytes % % Eosinophils % % Basophils % % Neutrophils # (1.3-7.7) k/uL Lymphocytes # (1.0-4.8) k/uL Monocytes # (0-1.0) k/uL Eosinophils # (0-0.7) k/uL Basophils # (0-0.2) k/uL Sodium (137-145) mmol/L Potassium (3.5-5.1) mmol/L Chloride (98-107) mmol/L Carbon Dioxide (22-30) mmol/L Anion Gap mmol/L BUN (7-17) mg/dL Creatinine (0.52-1.04) mg/dL Est GFR (CKD-EPI)AfAm (>60 ml/min/1.73 sqM) Est GFR (CKD-EPI)NonAf (>60 ml/min/1.73 sqM) Glucose (74-99) mg/dL Plasma Lactic Acid Ernie (0.7-2.0) mmol/L Calcium (8.4-10.2) mg/dL Total Bilirubin (0.2-1.3) mg/dL AST (14-36) U/L ALT (4-34) U/L Alkaline Phosphatase (38-126) U/L Total Protein (6.3-8.2) g/dL Albumin (3.5-5.0) g/dL Amylase (30-110) U/L Lipase (23-300) U/L Urine Color Yellow Urine Appearance Clear (Clear) Urine pH 7.0 (5.0-8.0) Ur Specific [place] 1.026 (1.001-1.035) Urine Protein Negative (Negative) Urine Glucose (UA) Negative (Negative) Urine Ketones Negative (Negative) Urine Blood Moderate H (Negative) Urine Nitrite Negative (Negative) Urine Bilirubin Negative (Negative) Urine Urobilinogen <2.0 (<2.0) mg/dL Ur Leukocyte Esterase Negative (Negative) Urine RBC 66 H (0-5) /hpf Urine WBC <1 (0-5) /hpf Ur Squamous Epith Cells 1 (0-4) /hpf Urine Bacteria Rare H (None) /hpf Urine Mucus Rare H (None) /hpf - Radiology Data Radiology results: report reviewed (CT abdomen/pelvis with IV contrast: Previous gastric bariatric surgery. No sign of acute abdomen and pelvis. Normal appendix. No adverse change compared to old exam.) Disposition Clinical Impression: Abdominal pain Disposition: HOME SELF-CARE Condition: Stable Instructions (If sedation given, give patient instructions): Abdominal Pain ( ED) Additional Instructions: Return to the ER immediately should you develop new or worsening pain, a fever, vomiting, feeling dizzy or faint, shortness of breath, or new or worsening symptoms. Follow up closely with your primary care provider. Is patient prescribed a controlled substance at d/c from ED?: No Referrals: Angelique Mariscal NPC [Primary Care Provider] - 1-2 days Time of Disposition: 20:27
[2021-04-30] MEDS ORDERED: SODIUM CHLORIDE 0.9% 1,000 ML IV STA (17:41)
[2021-04-30] MEDS ORDERED: HYDROmorphone 0.5 MG/0.5 ML SYRINGE IVP STA (17:41)
[2021-04-30 18:19] LABS: Basophils % (A) 0 %; Eosinophils # (A) 0.1 k/uL (0-0.7); Eosinophils % (A) 1 %; HCT 36.1 % (34.0-46.0); HGB 11.5 gm/dL (11.4-16.0); Lymphocytes % (A) 30 %; MCH 25.9 pg (25.0-35.0); MCHC 31.8 g/dL (31.0-37.0); MCV 81.3 fL (80.0-100.0); Mean Platelet Volume 7.7; Monocytes # (A) 0.4 k/uL (0-1.0); Monocytes % (A) 5 %; Neutrophils # (A) 4.1 k/uL (1.3-7.7); Neutrophils % (A) 62 %; Platelet Count 257 k/uL (150-450); RBC 4.44 m/uL (3.80-5.40); RDW 14.8 % (11.5-15.5); WBC 6.7 k/uL (3.8-10.6)
[2021-04-30 18:25] LABS: ALT 12 U/L (4-34); AST 23 U/L (14-36); African American GFR (CKD) >90 (>60 ml/min/1.73 sqM); Albumin 3.7 g/dL (3.5-5.0); Alkaline Phosphatase 101 U/L (38-126); Amylase 43 U/L (30-110); Anion Gap 8 mmol/L; Blood Urea Nitrogen 18 mg/dL (7-17); Calcium 8.4 mg/dL (8.4-10.2); Carbon Dioxide 23 mmol/L (22-30); Chloride 104 mmol/L (98-107); Glucose 96 mg/dL (74-99); Lipase 146 U/L (23-300); Non-African American GFR(CKD) >90 (>60 ml/min/1.73 sqM); Potassium 4.1 mmol/L (3.5-5.1); Sodium 135 mmol/L (137-145); Total Bilirubin 0.2 mg/dL (0.2-1.3); Total Protein 6.4 g/dL (6.3-8.2)
[2021-04-30 19:36] LABS: Appearance,Urine Clear (Clear); Bacteria,Urine Rare /hpf; Bilirubin,Urine Negative (Negative); Blood,Urine Moderate (Negative); Color,Urine Yellow; Glucose,Urine (UA) Negative (Negative); Ketones,Urine Negative (Negative); Leukocyte Esterase,Urine Negative (Negative); Mucus,Urine Rare /hpf; Nitrite,Urine Negative (Negative); Protein,Urine Negative (Negative); RBC,Urine 66 /hpf (0-5); Specific Gravity,Urine 1.026 (1.001-1.035); Squamous Epithelial Cell,Urine 1 /hpf (0-4); Urobilinogen,Urine <2.0 mg/dL (<2.0); WBC,Urine <1 /hpf (0-5)
--- NOTE | 2021-04-30 20:09 | CT ---
EXAMINATION TYPE: CT abdomen pelvis w con DATE OF EXAM: 04/30/2021 COMPARISON: 06/26/2017 HISTORY: Left sided abdominal pain today. CT DLP: 1183.5 mGycm Automated exposure control for dose reduction was used. CONTRAST: Performed with IV Contrast, patient injected with 100 mL of Isovue 300. Images obtained from the diaphragm to the floor the pelvis with IV contrast. Lung bases are clear. There is no pleural effusion. Heart size is normal. There is no pericardial eff usion. Liver spleen stomach appear intact. There is previous gastric surgery. There are clips from ch olecystectomy. The bile ducts are not dilated. There is no evidence of pancreatic mass. There is no adrenal mass. Kidneys show satisfactory contrast opacification. There is no hydronephrosi s. Delayed images show normal renal excretion. There is no retroperitoneal adenopathy. Bladder disten ds smoothly. Uterus is anteverted. There is 2 cm cervical cysts noted. The lumbar vertebra have raj l alignment. Disc spaces are fairly normal. There is no compression fracture. Posterior elements are intact. Bony pelvis is intact. The hip joints are intact. There is no mesenteric edema. There is no ascites or free air. There is no sign of a bowel obstructio n. Appendix appears normal. IMPRESSION: Previous gastric bariatric surgery. No sign of acute abdomen and pelvis. Normal appendix. No adverse change compared to old exam.
== END 2021-04-30 20:41 | disposition home or self-care (01) ==
LOC: EC 17:05
DX: R10.12 Left upper quadrant pain (principal); K21.9 Gastro-esophageal reflux disease without esophagitis; M19.90 Unspecified osteoarthritis, unspecified site; Z98.84 Bariatric surgery status; Z98.51 Tubal ligation status; Z90.49 Acquired absence of other specified parts of digestive tract; Z90.89 Acquired absence of other organs
CPT/HCPCS: 99284; 96374; 36415; 80053; 82150; 83605; 83690; 85025; 81001; 74177; J1170; Q9967

== ENCOUNTER 2022-03-26 06:30 | Day surgery (SDC) | payer MEDICARE, OTHER ==
[2022-03-22 16:22] VITALS: BMI 37.1
[2022-03-26] MEDS ORDERED: LIDOCAINE 1% (10MG/ML) FOR IV START INTRADERMA PRN (07:02)
[2022-03-26] MEDS ORDERED: LACTATED RINGERS 1,000 ML IV SCH (07:02)
[2022-03-26 07:21] VITALS: RESP 16; TEMP 97
[2022-03-26] MEDS ORDERED: LIDOCAINE 2% INJ 20 MG/ML (2 ML VIAL) ONE (07:37)
[2022-03-26] MEDS ORDERED: MIDAZOLAM 2 MG/2 ML VIAL ONE (07:37)
[2022-03-26] MEDS ORDERED: fentaNYL (PF) 50 MCG/ML 2 ML AMP ONE (07:37)
[2022-03-26] MEDS ORDERED: PROPOFOL 10 MG/ML 20 ML VIAL IV ONE (07:37)
--- NOTE | 2022-03-26 07:50 | P.GSHP ---
History of Present Illness H&P Date: 03/26/22 CHIEF COMPLAINT: GERD and colon screen HISTORY OF PRESENT ILLNESS: The patient is a 41-year-old female who presents with gastroesophageal reflux disease and need for colon screen. Upper and lower endoscopy were offered for further evaluation and management. PAST MEDICAL HISTORY: Please see list. PAST SURGICAL HISTORY: Please see list. MEDICATIONS: Please see list. ALLERGIES: Please see list. SOCIAL HISTORY: No illicit drug use FAMILY HISTORY: No reports of Crohn disease or ulcerative colitis. REVIEW OF ORGAN SYSTEMS: CONSTITUTIONAL: No reports of fevers or chills. GI: Denies any blood in stools or constipation. PHYSICAL EXAM: VITAL SIGNS: Stable GENERAL: Well-developed pleasant in no acute distress. HEENT: No scleral icterus. Extraocular movements grossly intact. Moist buccal mucosa. NECK: Supple without lymphadenopathy. CHEST: Unlabored respirations. Equal bilateral excursions. CARDIOVASCULAR: Regular rate and rhythm. Distal 2+ pulses. ABDOMEN: Soft, nondistended. MUSCULOSKELETAL: No clubbing, cyanosis, or edema. ASSESSMENT: 1. Gastroesophageal reflux disease 2. Colon screen. PLAN: 1. Recommend proceeding with an upper and lower endoscopy Past Medical History Past Medical History: GERD/Reflux, Musculoskeletal Disorder, Osteoarthritis (OA), Sleep Apnea/CPAP/BIPAP Additional Past Medical History / Comment(s): vomiting after eating and diarrhea for last month,no longer needs CPAP, sleep apnea resolved, has lost >200 lbs., bilateral knee pain from injuries years ago History of Any Multi-Drug Resistant Organisms: None Reported Past Surgical History: Adenoidectomy, Bariatric Surgery, Section, Cholecystectomy, Joint Replacement, Tonsillectomy, Tubal Ligation Additional Past Surgical History / Comment(s): 2 c sect, gastric bypass 03-07-17; panniculectomy 09/28/18, breast reduction surgery 03/04/2020, left knee replacement 2020, left shoulder surgery 2021 Past Anesthesia/Blood Transfusion Reactions: No Reported Reaction Additional Past Anesthesia/Blood Transfusion Reaction / Comment(s): No blood transfusion Smoking Status: Never smoker - Past Family History Mother Family Medical History: No Reported History Father Family Medical History: Diabetes Mellitus Medications and Allergies Home Medications Medication Instructions Recorded Confirmed Type Desvenlafaxine Succinate [Pristiq 25 mg PO HS 03/15/22 03/26/22 History ER] HYDROcodone/APAP 7.5-325MG [[place] 1 tab PO TID PRN 03/22/22 03/26/22 History 7.5-325] Allergies Allergy/AdvReac Type Severity Reaction Status Date / Time tramadol Allergy Rapid Verified 03/26/22 07:22 Heart Rate,itching,shakes Surgical - Exam Vital Signs Temp Pulse Resp BP Pulse Ox 97 F L 60 16 130/58 95 03/26/22 07:04 03/26/22 07:04 03/26/22 07:04 03/26/22 07:04 03/26/22 07:04
--- NOTE | 2022-03-26 07:51 | P.PCN ---
Date of Procedure: 03/26/22 Description of Procedure: PREOPERATIVE DIAGNOSIS: Dysphagia. Gastroesophageal reflux disease Esophageal dysmotility POSTOPERATIVE DIAGNOSIS: Dysphagia. Gastroesophageal reflux disease Esophageal dysmotility Esophageal stenosis OPERATION: Esophagogastrojejunoscopy with rigid dilator over the guidewire 48 Fr with dilation of esophageal stenosis/dysmotility SURGEON: Melanie Presley MD ANESTHESIA: MAC. INDICATIONS: The patient is a 41-year-old female who presents with a history of dysphagia. Benefits and risks of the procedure were described. Informed consent was obtained. DESCRIPTION: The patient was brought into the endoscopy suite and laid in the left lateral decubitus position. After a timeout was confirmed, the procedure was initiated. An Olympus gastroscope was passed into the posterior oropharynx down into the gastric pouch. The scope was entered into the gastric pouch without ulcers identified. Next using an [place] rigid dilator, a guidewire was placed through the gastroscope. Next the scope was withdrawn. A 48-Cro[place]ian rigid [place] dilator was passed carefully along the posterior oropharynx to 45 cm and left in place for 2-3 minutes stretch. The dilator was withdrawn including the guidewire. The scope was reentered along the posterior oropharynx with no findings of full- thickness tear of the upper esophageal sphincter. No full-thickness injury was encountered. The GI tract was desufflated. The patient tolerated the procedure well. FINDINGS: Esophageal stenosis dilated Presbyesophagus with esophageal dysmotility dilated [place] rigid dilator 48-Croatian completed. RECOMMENDATIONS: Upper endoscopy as needed
--- NOTE | 2022-03-26 08:16 | P.PCN ---
Date of Procedure: 03/26/22 Description of Procedure: PREOPERATIVE DIAGNOSIS: Change in bowel habits POSTOPERATIVE DIAGNOSIS: Change in bowel habits OPERATION: Colonoscopy to the cecum, ileocecal valve and appendiceal orifice. Colonoscopy with random cold forceps biopsies for colitis SURGEON: Melanie Presley MD. ANESTHESIA: MAC. INDICATIONS: The patient is a 41-year-old female who presents for change in bowel habits. Benefits and risks were described and informed consent was obtained. DESCRIPTION OF PROCEDURE: The patient had undergone Sutab prep. The patient had been brought into the operating room and laid in the left lateral decubitus position. After adequate intravenous sedation, the rectum was examined with 2% lidocaine jelly. No external hemorrhoids were encountered. The rectal tone was within normal limits. No lesions were palpated in the rectal vault. An Olympus colonoscope was advanced until the cecum, ileocecal valve and appendiceal orifice were clearly viewed. The prep was good. No scattered diverticulosis was encountered. No colonic polyps were found. No evidence of focal colitis was found. Retroflexion of the scope demonstrated grade 1 internal hemorrhoids without active bleeding or inflammation. The colon was desufflated. The patient had tolerated the procedure well. Withdrawal time was over 6 minutes. FINDINGS: Aronchick preparation quality scale 2(1-5) Internal hemorrhoids, grade 1 No external prolapsed hemorrhoids. No arteriovenous malformations. No adenomatous polyps. Random biopsies obtained for microscopic colitis RECOMMENDATIONS: Lower endoscopy as needed Plan - Discharge Summary Discharge Rx Participant: No New Discharge Prescriptions: No Action Desvenlafaxine Succinate [Pristiq ER] 25 mg PO HS HYDROcodone/APAP 7.5-325MG [[place] 7.5-325] 1 tab PO TID PRN PRN Reason: Pain Discharge Medication List Desvenlafaxine Succinate [Pristiq ER] 25 mg PO HS 03/15/22 [History] HYDROcodone/APAP 7.5-325MG [[place] 7.5-325] 1 tab PO TID PRN 03/22/22 [History]
[2022-03-26 08:21] VITALS: BP 111/74; PULSE 61
== END 2022-03-26 08:48 | disposition home or self-care (01) ==
LOC: ORWHC2ENDO 06:30
PROVIDERS: ATTEND Surgery Plastic and Reconstructive Surgery
DX: K22.2 Esophageal obstruction (principal); K64.8 Other hemorrhoids; K22.4 Dyskinesia of esophagus; K21.9 Gastro-esophageal reflux disease without esophagitis; R19.4 Change in bowel habit; M19.90 Unspecified osteoarthritis, unspecified site; M79.9 Soft tissue disorder, unspecified; Z90.89 Acquired absence of other organs; Z98.84 Bariatric surgery status; Z98.890 Other specified postprocedural states; Z98.891 History of uterine scar from previous surgery; Z90.49 Acquired absence of other specified parts of digestive tract; Z98.51 Tubal ligation status; Z83.3 Family history of diabetes mellitus; Z79.899 Other long term (current) drug therapy; Z88.5 Allergy status to narcotic agent
CPT/HCPCS: 43248; 81025; 88305; 45380; J2250; J3010; J2704; J2001; 43249

== ENCOUNTER → 2022-04-05 | Outpatient (CLI) | payer MEDICARE, OTHER ==
--- NOTE | 2022-04-05 12:29 | US ---
EXAMINATION TYPE: US abdomen complete DATE OF EXAM: 04/05/2022 COMPARISON: CT 04/30/2021 CLINICAL HISTORY: 31-year-old female R10.11 RUQ pain. N/V, weight gain, history of cholecystectomy TECHNIQUE: Multiple sonographic images of the abdomen are obtained. FINDINGS: EXAM MEASUREMENTS: Liver Length: 14.1 cm CBD: 6.5 mm Spleen: 9.6 cm Right Kidney: 10.2 x 4.2 x 4.7 cm Left Kidney: 10.8 x 4.3 x 4.6 cm Night Time Nanny notes:Difficult and limited study due to patient body habitus Pancreas: . Portions of the pancreatic body are seen. Most is obscured by bowel gas shadowing. Liver: wnl Gallbladder: surgically absent Evidence for sonographic Brito's sign: no CBD: Borderline to mildly dilated. Spleen: wnl Right Kidney: wnl Left Kidney: wnl Upper IVC: wnl Abd Aorta: wnl IMPRESSION: Limited due to body habitus. Bile duct borderline to mildly dilated at 6.5 mm though acceptable given postcholecystectomy status. Correlate with alkaline phosphatase and bilirubin levels.
== END | disposition home or self-care (01) ==
LOC: RADUSWWP 08:47
PROVIDERS: ATTEND Surgery Plastic and Reconstructive Surgery
DX: R10.11 Right upper quadrant pain (principal); Z90.49 Acquired absence of other specified parts of digestive tract
CPT/HCPCS: 76700

== ENCOUNTER → 2022-05-02 | Outpatient (CLI) | payer MEDICARE, OTHER ==
[2022-05-02 13:00] VITALS: BP 126/85; PULSE 92; TEMP 98.1; BMI 39.5
--- NOTE | 2022-05-02 14:14 | P.BASOAP ---
Subjective Progress Note Date: 05/02/22 Reviewed US reviewed and ok. Food diary journal not present. She reports dairy intolerance. Recommend vitamin deficiency list. Decrease bread, carbohydrates described. No moderate abdominal pain. Weight is stable. Objective - Vital Signs Vital signs: Vital Signs Temp 98.1 F 05/02/22 12:56 Pulse 92 05/02/22 12:56 Resp BP 126/85 05/02/22 12:56 Pulse Ox FiO2 Intake & Output 05/01/22 05/02/22 05/02/22 18:59 06:59 18:59 Weight 87.997 kg Assessment/Plan Plan: Date: 05/02/22 Initial Weight: 153.178 kg Initial BMI: 68.8 Current Weight: 87.997 kg Current BMI: 39.5 Type of Surgery: Total Volume in Band: Previous Volume: Volume Removed: Volume Added: Band Size:
== END ==
LOC: BARWHC3 12:31
PROVIDERS: ATTEND Surgery Plastic and Reconstructive Surgery
DX: E66.01 Morbid (severe) obesity due to excess calories (principal); Z68.39 Body mass index [BMI] 39.0-39.9, adult; Z88.5 Allergy status to narcotic agent; E11.9 Type 2 diabetes mellitus without complications; I11.9 Hypertensive heart disease without heart failure; Z79.84 Long term (current) use of oral hypoglycemic drugs; Z79.4 Long term (current) use of insulin
CPT/HCPCS: 99211

== ENCOUNTER → 2024-09-10 | Outpatient (CLI) | payer MEDICARE, OTHER ==
--- NOTE | 2024-09-10 19:54 | MR ---
EXAMINATION TYPE: MR oumar/viktor wo con DATE OF EXAM: 09/10/2024 7:45 PM COMPARISON: None. CLINICAL INDICATION: Female, 44 years old with history of M54.12 C RADICULOPATHY M54.16 L RADICULOPAT HY, Back pain her entire life TECHNIQUE: Multiplanar MultiSpin echo imaging of the cervical spine was performed. FINDINGS: C2-C3: No evidence for degenerative disc disease. No disc bulge/herniation or protrusion. No Canal stenosis. Foramina are patent bilaterally. C3-C4: No evidence for degenerative disc disease. No disc bulge/herniation or protrusion. No Canal stenosis. Foramina are patent bilaterally. C4-C5: No evidence for degenerative disc disease. No disc bulge/herniation or protrusion. No Canal stenosis. Foramina are patent bilaterally. C5-C6: No evidence for degenerative disc disease. No disc bulge/herniation or protrusion. No Canal stenosis. Foramina are patent bilaterally. C6-C7: Moderate disc desiccation noted. Posterior central subligamentous disc herniation effaces the ventral thecal sac with mild ventral CORD contact. Early myelopathy difficult to exclude. No evidence for foraminal encroachment or central stenosis. C7-T1: No evidence for degenerative disc disease. No disc bulge/herniation or protrusion. No Canal stenosis. Foramina are patent bilaterally. Cervical segments are intact. There is normal alignment. Cervical spinal cord is of normal signal. Craniovertebral junction relationships are within normal limits. Scattered ventral spondylosis. IMPRESSION: 1. Subligamentous disc herniation at C6-7 with ventral CORD contact. Early compressive myelopathy dif ficult to exclude. EXAMINATION TYPE: MR oumar/viktor wo con DATE OF EXAM: 09/10/2024 7:45 PM COMPARISON: None. CLINICAL INDICATION: Female, 44 years old with history of M54.12 C RADICULOPATHY M54.16 L RADICULOPAT HY, Back pain her entire life TECHNIQUE: Multiplanar, MultiSpin echo imaging of the lumbar spine was performed. CONTRAST: The patient was injected with mL intravenous gadolinium contrast. FINDINGS: L1-L2: Normal disc appearance without desiccation. No herniation, protrusion or disc bulging. No ca nal stenosis is present. Foramina are patent bilaterally. L2-L3: Normal disc appearance without desiccation. No herniation, protrusion or disc bulging. No ca nal stenosis is present. Foramina are patent bilaterally. L3-L4: Mild decreased signal and loss of height compatible with degenerative disc disease. No herniat ion, protrusion or disc bulging. No canal stenosis is present. Foramina are patent bilaterally. L4-L5: Normal disc appearance without desiccation. No herniation, protrusion or disc bulging. No ca nal stenosis is present. Foramina are patent bilaterally. L5-S1: Normal disc appearance without desiccation. No herniation, protrusion or disc bulging. No ca nal stenosis is present. Foramina are patent bilaterally. Lumbar segments are intact. No paraspinal masses are identified. Conus medullaris has a normal appe arance. IMPRESSION: 1. Mild degenerative disc disease at L3-4. [facility], , 09/10/2024 7:51 PM
== END | disposition home or self-care (01) ==
LOC: RADMRIMAIN 17:38
PROVIDERS: ATTEND Family Medicine
DX: M50.123 Cervical disc disorder at C6-C7 level with radiculopathy (principal); M51.16 Intervertebral disc disorders with radiculopathy, lumbar region
CPT/HCPCS: 72141; 72148

== ENCOUNTER → 2024-11-03 | Outpatient (CLI) | payer MEDICARE, OTHER ==
[2024-11-03 13:23] VITALS: BP 130/85; PULSE 61; RESP 17
--- NOTE | 2024-11-03 15:10 | P.PAINPG ---
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 Pt states pain level is provoked at 6 /10 in intensity, constant, localized in the lumbar spine, predominantly axial, sharp in character w occasional shooting pain towards the L leg. Pain is provoked by over activity. Pain is alleviated by PT x 6 wks which ended in Jul 2024, physician guided home exercises 4-5 times weekly since Aug 2024, medications, heat, use of a cane for ambulatory assistance, repositioning and rest . Oswestry axial pain score at 25. PMH: OA, GERD, MAJO PSH: Adenoidectomy, Gastric Bypass (2016), Panniculectomy (2018), Breast Reduction (2019), C- Section x2, Cholecystectomy, L Knee Replacement (2020), L Shoulder Surgery (2021), Tonsillectomy, Tubal Ligation SH: Never smoker, Occ ETOH use, Hx of Cannabis use FH: Mo- No Reported History. Fa- DM All: See list Medications include REVIEW OF ORGAN SYSTEMS: CONSTITUTIONAL: No fevers or chills. No recent weight loss. NEUROLOGICAL: + numbness and tingling along the distal extremities. No seizure disorders or headaches. MUSCULOSKELETAL: + pain PSYCHIATRIC: Denies current depression or suicidal thoughts. Physical Examinations : Constitutional : Cooperative , not in acute distress . Neurologic : Cranial nerve II to XII intact. No focal neurological deficits. Psychiatric : alert & oriented x 3. Matching mood & appropriate affect. Judgment & insight intact. Musculoskeletal : Cervical Spine Motor strength in the deltoid and biceps: Normal right side. Normal Left side Motor strength biceps and the wrist extensors: Normal right side . Normal left side Motor strength in the triceps muscle: Normal right side. Normal left side Deep tendon reflexes: Normal at the biceps. Normal at Brachioradialis. Normal at triceps Vertebral body tenderness to deep palpation over Cervical facet loading test: positive bilaterally Spurling test: positive bilaterally Neck distraction test: positive bilaterally Mary sign: positive bilaterally Lumbar spine Motor strength lower extremities ,thigh and legs 5/5 Right side , 5/5 Left side Deep tendon reflexes : Normal Knee Jerk. Normal Ankle Jerk Vertebral body tenderness over [place] Test positive Lumbar facet Loading Test: positive Right / positive Left Range of motion of the lumbar spine Flexion 30 degrees, extension 10 degrees Straight Leg Raise test: Left/ Right positive at degrees Bin test: positive right / positive left. Severe tenderness over the Sacroiliac joint on the Right / Left sides Gaenslen test: positive bilaterally Seated flexion test: positive bilaterally. Sacral spine : Severe tenderness over the Sacroiliac joint: right side / left side Range of motion: Flexion of the lumbar spine <60 degrees Range of motion: Extension of the lumbar spine <20 degrees Gaenslen's Test positive L Bin test: positive right side / left side Thigh Thrust Test L positive Sacral Thrust Test Imaging: MRI non contrast cervical/ lumbar spine from 09/10/24 reviewed Assessment/ Plan : C6-C7 radiculopathy, L3-L4 radiculopathy, L Sacroiliitis Recommendation of L SI #1 and medication management. Risks, benefits of procedure discussed and patient verbalized understanding. Admits to anti- coagulant use or medical history of diabetes. Protocol for discontinuation/ continuation of medications alonso procedure discussed. All questions answered. Opiate/ narcotic agreement signed 11/03/24. To discontinue narcotic agreement w Dr Anderson. [place] 5/325mg #60 w 1 RF. Use, side effects, adverse reactions, safe storage discussed. I have spent greater than 30 minutes on patient care today. Dr Ye was available by phone for the evaluation of this patient. The time was used to review the medical records including relevant urine studies and Prescription history (MAPs), review of the available imaging, evaluation and examination of the patient, coordination of care with the medical staff and if applicable referring physicians, as well as creation of the medical record - Pain Location Lower Back Non-Pharmacological Interventions: Heat, Ice Pharmacological Interventions: Medication PQRS Narrative: Smoking Status Never smoker Hx Alcohol Use (MH) No Home Medications: Ambulatory Orders Ergocalciferol [Vitamin D2 (1250 Mcg = 68274 Iu)] 1,250 mcg PO WEEKLY #20 cap 04/04/22 Nystatin 100,000 Unit/gm Powd [Mycostatin Powder] 1 applic TOPICAL DAILY 02/26/24 Nystatin 100,000Unit/gm Cream [Mycostatin Cream] 1 applic TOPICAL DAILY 02/26/24 SUMAtriptan succinate 1 tab PO HS 02/26/24 Topiramate [Topamax] 25 mg PO HS 02/26/24 traZODone HCL 100 mg PO HS 02/26/24 HYDROcodone/APAP 5-325MG [[place] 5-325] 1 tab PO TID PRN 30 Days #90 tab 11/03/24 HYDROcodone/APAP 5-325MG [[place] 5-325] 1 tab PO TID PRN 30 Days #90 tab 11/03/24 diazePAM [Valium] 5 mg PO DAILY 1 Days #2 tab 11/03/24 Controlled Substance Measures - Controlled Substance Measures Is patient prescribed a controlled substance at discharge?: Yes When asked, does pt state using other controlled substances?: Yes If prescribed controlled substance>3 days was MAPS reviewed?: Yes If Rx opioid, was Start Talking consent form obtained?: Yes Was information provided regarding opioid addiction?: Yes
== END ==
LOC: PNWHC3 12:55
PROVIDERS: ATTEND Specialist
DX: M54.12 Radiculopathy, cervical region (principal); M54.16 Radiculopathy, lumbar region; M46.1 Sacroiliitis, not elsewhere classified; Z88.5 Allergy status to narcotic agent
CPT/HCPCS: 99212

== ENCOUNTER → 2024-12-02 | Outpatient (CLI) | payer MEDICARE, OTHER ==
[2024-12-02 15:53] VITALS: BP 137/87; PULSE 83; RESP 16; TEMP 97.7; BMI 46.6
--- NOTE | 2024-12-02 16:41 | P.BASOAP ---
Subjective Progress Note Date: 12/02/24 She has regained 100 pounds. Has dysphagia. Needs EGD, labs, my fitnesspal. FU after EGD Objective - Vital Signs Vital signs: Vital Signs Temp 97.7 F 12/02/24 15:48 Pulse 83 12/02/24 15:48 Resp 16 12/02/24 15:48 BP 137/87 12/02/24 15:48 Pulse Ox FiO2 Intake & Output 12/01/24 12/02/24 12/02/24 18:59 06:59 18:59 Weight 103.873 kg Assessment/Plan Plan: Date: 12/02/24 Initial Weight: 153.178 kg Initial BMI: 68.8 Current Weight: 103.873 kg Current BMI: 46.6 Type of Surgery: Dat-en-Y Gastric Bypass Total Volume in Band: Previous Volume: Volume Removed: Volume Added: Band Size:
== END ==
LOC: BARWHC3 14:51
PROVIDERS: ATTEND Surgery Plastic and Reconstructive Surgery
DX: E66.01 Morbid (severe) obesity due to excess calories (principal); Z88.6 Allergy status to analgesic agent; Z68.42 Body mass index [BMI] 45.0-49.9, adult; Z88.8 Allergy status to other drugs, medicaments and biological substances
CPT/HCPCS: 99211

== ENCOUNTER 2024-12-21 07:41 | Day surgery (SDC) | payer MEDICARE, OTHER ==
[2024-12-18 10:51] VITALS: BMI 44.9
--- NOTE | 2024-12-21 07:40 | P.GSHP ---
History of Present Illness H&P Date: 12/21/24 CHIEF COMPLAINT: GERD and dysphagia HISTORY OF PRESENT ILLNESS: The patient is a 44-year-old female who presents reports gastroesophageal reflux disease and dysphagia. Upper endoscopy was offered for further evaluation and management. PAST MEDICAL HISTORY: Please see list. PAST SURGICAL HISTORY: Please see list. MEDICATIONS: Please see list. ALLERGIES: Please see list. SOCIAL HISTORY: No illicit drug use FAMILY HISTORY: No reports of Crohn disease or ulcerative colitis. REVIEW OF ORGAN SYSTEMS: CONSTITUTIONAL: No reports of fevers or chills. GI: Denies any blood in stools or constipation. PHYSICAL EXAM: VITAL SIGNS: Stable GENERAL: Well-developed and pleasant in no acute distress. HEENT: No scleral icterus. Extraocular movements grossly intact. Moist buccal mucosa. NECK: Supple without lymphadenopathy. CHEST: Unlabored respirations. Equal bilateral excursions. CARDIOVASCULAR: Regular rate and rhythm. Distal 2+ pulses. ABDOMEN: Soft, nondistended. MUSCULOSKELETAL: No clubbing, cyanosis, or edema. ASSESSMENT: 1. Gastroesophageal reflux disease 2. Dysphagia PLAN: 1. Recommend proceeding with an upper endoscopy Past Medical History Past Medical History: Diabetes Mellitus, GERD/Reflux, Musculoskeletal Disorder, Osteoarthritis (OA), Sleep Apnea/CPAP/BIPAP Additional Past Medical History / Comment(s): no longer needs CPAP, sleep apnea resolved, has lost >200 lbs., bilateral knee pain from injuries years ago, chronic back pain, occasional left leg numbness, diet controlled DM. History of Any Multi-Drug Resistant Organisms: None Reported Past Surgical History: Adenoidectomy, Bariatric Surgery, Breast Surgery, Section, Cholecystectomy, Joint Replacement, Orthopedic Surgery, Tonsillectomy, Tubal Ligation Additional Past Surgical History / Comment(s): Gastric bypass 03-07-17; panniculectomy 09/28/18, breast reduction surgery 03/04/2020, left knee replacement 2020, left shoulder surgery 2021, right knee replacement 2021 Past Anesthesia/Blood Transfusion Reactions: No Reported Reaction Additional Past Anesthesia/Blood Transfusion Reaction / Comment(s): No blood transfusion Smoking Status: Never smoker - Past Family History Mother Family Medical History: No Reported History Father Family Medical History: Diabetes Mellitus Medications and Allergies Home Medications Medication Instructions Recorded Confirmed Type Nystatin 100,000Unit/gm Cream 1 applic TOPICAL DAILY PRN 02/26/24 12/18/24 History [Mycostatin Cream] HYDROcodone/APAP 5-325MG [[place] 1 tab PO TID PRN 30 Days #90 tab 11/03/24 12/18/24 Rx 5-325] Famotidine [Pepcid] 20 mg PO BID 11/18/24 12/18/24 History Omeprazole [PriLOSEC] 40 mg PO DAILY 12/18/24 12/18/24 History Allergies Allergy/AdvReac Type Severity Reaction Status Date / Time tramadol Allergy Rapid Verified 12/18/24 10:26 Heart Rate,itching,shakes cyclobenzaprine AdvReac panic Verified 12/18/24 10:26 [From Flexeril]
[~2024-12-21 07:41] MED LIST changes: -DEXAMETHASONE SOD PHOSPHATE 10 MG/ML 1 ML VIAL IV ONE; +LACTATED RINGERS 1,000 ML IV SCH; +LIDOCAINE 1% (10MG/ML) FOR IV START INTRADERMA PRN; -LIDOCAINE 1% 20 ML VIAL (10MG/ML) FOR IV START INTRADERMA PRN; -ONDANSETRON 4 MG/2 ML VIAL IVP ONE; -SCOPOLAMINE 1.5MG/72HR PATCH TRANSDERM ONE; -ceFAZolin IN SWFI 2 GM/20 ML SYRINGE IVP ONE
[2024-12-21] MEDS: IV FLUID CONTINUATION 1,000 ML IV ONE (08:07)
[2024-12-21 08:31] LABS: Glucose,Whole Blood 88 mg/dL (70-110)
[2024-12-21 08:32] VITALS: TEMP 97.7
[2024-12-21] MEDS ORDERED: PROPOFOL 10 MG/ML 20 ML VIAL IV ONE (08:57)
[2024-12-21] MEDS ORDERED: LIDOCAINE 1% INJ 10MG/ML (20 ML MDV) ONE (08:57)
[2024-12-21 09:43] VITALS: BP 124/78; PULSE 78; RESP 17
--- NOTE | 2024-12-21 10:00 | P.PCN ---
Date of Procedure: 12/21/24 Description of Procedure: PREOPERATIVE DIAGNOSES: 1. Dysphagia 2. History of gastric bypass 3. Morbid obesity excess calories POSTOPERATIVE DIAGNOSES: 1. Dysphagia 2. History of gastric bypass 3. Morbid obesity excess calories PROCEDURE PERFORMED: Esophagogastrojejunoscopy. SURGEON: Melanie Presley MD ANESTHESIA: MAC. INDICATIONS: The patient is a 44-year-old male with prior history of Dat-en-Y gastric bypass. In the last several weeks, she has had intermittent nausea and vomiting, particularly of the epigastric abdominal pain. With his history of Dat-en-Y gastric bypass, upper endoscopy was offered for further evaluation and management. DESCRIPTION: Patient was brought to the endoscopy suite and laid in the left lateral decubitus position. After adequate IV sedation, a bite block was placed. An Olympus gastroscope was passed along the posterior oropharynx down to the distal esophagus where the squamocolumnar junction was found at approximately 35 cm from the incisors. The anastomosis was found at 40 cm, consistent with approximately 5 cm gastric pouch. The scope was advanced 60 cm from the incisors. No evidence of foreign body was found. No evidence of active gastrojejunal ulcerations were encountered. The GI tract was desufflated. The patient tolerated the procedure well. FINDINGS: 1. No acute gastrojejunal ulceration. 2. No foreign body found along the anastomosis. 3. Presence of diaphragmatic hiatal hernia 3 cm PLAN: 1. Recommend upper endoscopy as needed. 2. May benefit from additional studies with history of epigastric abdominal pain such as upper GI barium study. Plan - Discharge Summary Discharge Rx Participant: No New Discharge Prescriptions: Continue Nystatin 100,000Unit/gm Cream [Mycostatin Cream] 1 applic TOPICAL DAILY PRN PRN Reason: Rash HYDROcodone/APAP 5-325MG [[place] 5-325] 1 tab PO TID PRN 30 Days #90 tab PRN Reason: Pain Famotidine [Pepcid] 20 mg PO BID Omeprazole [PriLOSEC] 40 mg PO DAILY Discharge Medication List Nystatin 100,000Unit/gm Cream [Mycostatin Cream] 1 applic TOPICAL DAILY PRN 02/26/24 [History] HYDROcodone/APAP 5-325MG [[place] 5-325] 1 tab PO TID PRN 30 Days #90 tab 11/03/24 [Rx] Famotidine [Pepcid] 20 mg PO BID 11/18/24 [History] Omeprazole [PriLOSEC] 40 mg PO DAILY 12/18/24 [History] [facility] [place] [facility] [facility] 3:00 pm Patient Instructions/Handouts: *Surgery [facility] - (Anesthesia) Discharge Instructions Outpatient Surgery Discharge Disposition: HOME SELF-CARE
== END 2024-12-21 10:28 | disposition home or self-care (01) ==
LOC: ORWHC2ENDO 07:41
PROVIDERS: ATTEND Surgery Plastic and Reconstructive Surgery
DX: R13.10 Dysphagia, unspecified (principal); K21.9 Gastro-esophageal reflux disease without esophagitis; K44.9 Diaphragmatic hernia without obstruction or gangrene; E11.9 Type 2 diabetes mellitus without complications; G43.919 Migraine, unspecified, intractable, without status migrainosus; F41.9 Anxiety disorder, unspecified; F43.10 Post-traumatic stress disorder, unspecified; R11.2 Nausea with vomiting, unspecified; E66.01 Morbid (severe) obesity due to excess calories; Z79.899 Other long term (current) drug therapy; Z98.84 Bariatric surgery status; Z88.5 Allergy status to narcotic agent; Z88.8 Allergy status to other drugs, medicaments and biological substances
CPT/HCPCS: 81025; 43235; J2003; J2704

== ENCOUNTER → 2024-12-28 | Outpatient (CLI) | payer MEDICARE, OTHER ==
[2024-12-28 13:04] LABS: INR 1.2 (<1.2); Partial Thromboplastin Time 22.6 sec (22.0-30.0); Prothrombin Time 13.3 sec (10.0-12.5)
[2024-12-28 15:35] LABS: Prealbumin 17.2 mg/dL (18.0-42.0)
[2024-12-28 15:51] LABS: ALT 23 U/L (8-44); AST 29 U/L (13-35); Albumin 4.4 g/dL (3.8-4.9); Albumin/Globulin Ratio 1.76 Ratio (1.60-3.17); Alkaline Phosphatase 118 U/L (41-126); Anion Gap 12.00 mmol/L (4.00-12.00); BUN/Creat Ratio 20.33 Ratio (12.00-20.00); Blood Urea Nitrogen 12.2 mg/dL (9.0-27.0); Calcium 8.8 mg/dL (8.7-10.3); Carbon Dioxide 24.0 mmol/L (21.6-31.8); Chloride 102 mmol/L (96-109); Cholesterol 142.00 mg/dL (0.00-200.00); Ferritin 16.1 ng/mL (10.0-291.0); Globulin 2.5 g/dL (1.6-3.3); Glucose 83 mg/dL (70-110); HDL Cholesterol 62.40 mg/dL (40.00-60.00); Iron 27 UG/DL (50-170); LDL Cholesterol,Calculated 60.6 mg/dL (0.0-131.0); Magnesium 2.0 mg/dL (1.5-2.4); Potassium 4.4 mmol/L (3.5-5.5); Sodium 138 mmol/L (135-145); Total Iron Binding Capacity 505 UG/DL (228-460); Total Protein 6.9 g/dL (6.2-8.2); Triglycerides 94.80 mg/dL (0.00-149.00); VLDL Calculation 18.96 mg/dL (5.00-40.00); Vitamin B12 187.0 pg/mL (200.0-944.0)
[2024-12-28 15:58] LABS: HCT 41.1 % (37.2-46.3); HGB 12.7 g/dL (12.0-15.0); MCH 26.7 pg (27.0-32.0); MCHC 30.9 g/dL (32.0-37.0); MCV 86.5 FL (80.0-97.0); NRBC Per 100 WBC 0 X 10*3/uL (0.00-0.01); Platelet Count 285 X 10*3/uL (140-440); RBC 4.75 X 10*6/uL (4.10-5.20); RDW 13.7 % (11.5-14.5); WBC 5.83 X 10*3/uL (4.50-10.00)
[2024-12-29 14:32] LABS: Zinc, Serum 52 ug/dL (60-130)
== END | disposition home or self-care (01) ==
LOC: LABWHC1 11:54
PROVIDERS: ATTEND Surgery Plastic and Reconstructive Surgery
DX: E66.01 Morbid (severe) obesity due to excess calories (principal); E89.1 Postprocedural hypoinsulinemia; D50.9 Iron deficiency anemia, unspecified; K91.2 Postsurgical malabsorption, not elsewhere classified; E44.0 Moderate protein-calorie malnutrition; E45 Retarded development following protein-calorie malnutrition; E55.9 Vitamin D deficiency, unspecified; K74.1 Hepatic sclerosis; N19 Unspecified kidney failure; T56.894A Toxic effect of other metals, undetermined, initial encounter; K50.90 Crohn's disease, unspecified, without complications
CPT/HCPCS: 36415; 80053; 80061; 82306; 82525; 82607; 82728; 82746; 83036; 83540; 83550; 83735; 83970; 84100; 84134; 84255; 84425; 84443; 84590; 84630; 85027; 85610; 85730

== ENCOUNTER → 2024-12-28 | Outpatient (CLI) | payer MEDICARE, OTHER ==
[2024-12-28 11:08] VITALS: BP 133/92; PULSE 75; RESP 18
--- NOTE | 2024-12-28 14:38 | P.PAINPG ---
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 Pt states she experienced 50 % pain relief x 5 wks s/p procedure. Pt states pain level is provoked at 6 /10 in intensity, constant, localized in the lumbar spine, predominantly axial, sharp in character w occasional shooting pain towards the L leg. Pain is provoked by over activity. Pain is alleviated by PT x 6 wks which ended in Jul 2024, physician guided home exercises 4-5 times weekly since Aug 2024, medications, heat, use of a cane for ambulatory assistance, repositioning and rest . Oswestry axial pain score at 25. Earlier, Pt requested increase in [place] which was honored to 7.5/325mg dose, a second increase. Discussed w pt that if injection and increased medications are ineffective, that she needs to follow up w an orthopedic surgeon. Dr Stevenson's information was provided to pt by MA. Pt acknowledged understanding. Interventional procedures include L SI x1 (11/15) Medications include Hx of Cannabis use REVIEW OF ORGAN SYSTEMS: CONSTITUTIONAL: No fevers or chills. No recent weight loss. NEUROLOGICAL: + numbness and tingling along the distal extremities. No seizure disorders or headaches. MUSCULOSKELETAL: + pain PSYCHIATRIC: Denies current depression or suicidal thoughts. Physical Examinations : Constitutional : Cooperative , not in acute distress . Neurologic : Cranial nerve II to XII intact. No focal neurological deficits. Psychiatric : alert & oriented x 3. Matching mood & appropriate affect. Judgment & insight intact. Musculoskeletal : Cervical Spine Motor strength in the deltoid and biceps: Normal right side. Normal Left side Motor strength biceps and the wrist extensors: Normal right side . Normal left side Motor strength in the triceps muscle: Normal right side. Normal left side Deep tendon reflexes: Normal at the biceps. Normal at Brachioradialis. Normal at triceps Vertebral body tenderness to deep palpation over Cervical facet loading test: positive bilaterally Spurling test: positive bilaterally Neck distraction test: positive bilaterally Mary sign: positive bilaterally Lumbar spine Motor strength lower extremities ,thigh and legs 5/5 Right side , 5/5 Left side Deep tendon reflexes : Normal Knee Jerk. Normal Ankle Jerk Vertebral body tenderness over [place] Test positive Lumbar facet Loading Test: positive Right / positive Left Range of motion of the lumbar spine Flexion 30 degrees, extension 10 degrees Straight Leg Raise test: Left/ Right positive at degrees Bin test: positive right / positive left. Severe tenderness over the Sacroiliac joint on the Right / Left sides Gaenslen test: positive bilaterally Seated flexion test: positive bilaterally. Sacral spine : Severe tenderness over the Sacroiliac joint: right side / left side Range of motion: Flexion of the lumbar spine <60 degrees Range of motion: Extension of the lumbar spine <20 degrees Gaenslen's Test positive L Bin test: positive right side / left side Thigh Thrust Test L positive Sacral Thrust Test Imaging: MRI non contrast cervical/ lumbar spine from 09/10/24 reviewed Assessment/ Plan : C6-C7 radiculopathy, L3-L4 radiculopathy, L Sacroiliitis Recommendation of medication management. Opiate/ narcotic agreement signed 11/03/24. [place] 7.5/325mg #60 w RF. Use, side effects, adverse reactions, safe storage discussed. I have spent greater than 30 minutes on patient care today. Dr Ye was available by phone for the evaluation of this patient. The time was used to review the medical records including relevant urine studies and Prescription history (MAPs), review of the available imaging, evaluation and examination of the patient, coordination of care with the medical staff and if applicable referring physicians, as well as creation of the medical record - Pain Location Bilateral Lower Back Non-Pharmacological Interventions: Heat, Ice, Physical Therapy, TENS Unit Pharmacological Interventions: Epidural, PRN Medication, Scheduled Medication PQRS Narrative: Smoking Status Never smoker Hx Alcohol Use (MH) No Home Medications: Ambulatory Orders Nystatin 100,000Unit/gm Cream [Mycostatin Cream] 1 applic TOPICAL DAILY PRN 02/26/24 HYDROcodone/APAP 5-325MG [[place] 5-325] 1 tab PO TID PRN 30 Days #90 tab 11/03/24 Famotidine [Pepcid] 20 mg PO BID 11/18/24 Omeprazole [PriLOSEC] 40 mg PO DAILY 12/18/24 Prazosin HCl 1 mg PO 12/28/24 Sertraline [Zoloft] 25 mg PO DAILY 12/28/24 Controlled Substance Measures - Controlled Substance Measures Is patient prescribed a controlled substance at discharge?: Yes When asked, does pt state using other controlled substances?: No If prescribed controlled substance>3 days was MAPS reviewed?: Yes
== END ==
LOC: PNWHC3 10:39
PROVIDERS: ATTEND Specialist
DX: M47.26 Other spondylosis with radiculopathy, lumbar region (principal); M46.1 Sacroiliitis, not elsewhere classified; Z88.5 Allergy status to narcotic agent; Z88.8 Allergy status to other drugs, medicaments and biological substances
CPT/HCPCS: 80307; G0463; 99212

== ENCOUNTER → 2025-01-13 | Outpatient (CLI) | payer MEDICARE, OTHER ==
[2025-01-13 14:39] VITALS: BP 130/92; PULSE 82; RESP 16; TEMP 97.8
[2025-01-13] MEDS: CYANOCOBALAMIN 1,000 MCG/ML 1 ML VIAL IM NR (14:41)
== END ==
LOC: PROCWHC3 14:35
PROVIDERS: ATTEND Surgery Plastic and Reconstructive Surgery
DX: D51.9 Vitamin B12 deficiency anemia, unspecified (principal)
CPT/HCPCS: 96372; J3420

== ENCOUNTER → 2025-01-13 | Outpatient (CLI) | payer MEDICARE, OTHER ==
[2025-01-13 14:43] VITALS: BP 130/92; PULSE 82; RESP 16; TEMP 97.7; BMI 44.1
--- NOTE | 2025-01-13 14:56 | P.BASOAP ---
Subjective Progress Note Date: 01/13/25 She has new bruising. She is not using her MVI. Vitamin deficiency. EGD has hiatal hernia. She has left lower quadrant pain. She is trying to download My fitness pal. She lost 3 pounds. Her food journal cannot upload [employer] pal. Recommend other version. Needs Vitamin D, iron, zinc, b-complex recommended. Needs lysis of adhesions. January 28 an Objective - Vital Signs Vital signs: Vital Signs Temp 97.7 F 01/13/25 14:39 Pulse 82 01/13/25 14:39 Resp 16 01/13/25 14:39 BP 130/92 01/13/25 14:39 Pulse Ox FiO2 Intake & Output 01/12/25 01/13/25 01/13/25 18:59 06:59 18:59 Weight 102.512 kg Assessment/Plan Plan: Date: 01/13/25 Initial Weight: 152.861 kg Initial BMI: 65.8 Current Weight: 102.512 kg Current BMI: 44.1 Type of Surgery: Dat-en-Y Gastric Bypass Total Volume in Band: Previous Volume: Volume Removed: Volume Added: Band Size:
== END ==
LOC: BARWHC3 14:12
PROVIDERS: ATTEND Surgery Plastic and Reconstructive Surgery
DX: E66.01 Morbid (severe) obesity due to excess calories (principal); T14.8XXA Other injury of unspecified body region, initial encounter; R10.32 Left lower quadrant pain; K44.9 Diaphragmatic hernia without obstruction or gangrene; Z68.41 Body mass index [BMI] 40.0-44.9, adult; Z88.5 Allergy status to narcotic agent; Z88.8 Allergy status to other drugs, medicaments and biological substances
CPT/HCPCS: 99211

== ENCOUNTER → 2025-01-21 | Outpatient (CLI) | payer MEDICARE, OTHER ==
--- NOTE | 2025-01-21 11:16 | MR ---
INDICATION: Patient age:Female; 44 years old; Reason for study: M40.56 lumbar pain; [facility]. COMPARISONS: MR C-spine/L-spine 09/10/2024. TECHNIQUE: Multi planar, multi sequence imaging was performed utilizing: T1-weighted, T2-weighted, a nd turbo inversion recovery imaging of the lumbar spine. The patient was not given contrast. FINDINGS: Motion degraded examination. The lumbar vertebral bodies do have preserved heights. Minimal grade 1 anterolisthesis of L4 on L5 wi thout evidence of pars defects. Small multilevel benign vertebral hemangiomas. The conus medullaris a nd the distal spinal cord do appear unremarkable with regards to their signal intensity and morpholog y. L1-L2: No significant disc pathology is identified. The spinal canal and neural foramen are patent. L2-L3: No significant disc pathology is identified. The spinal canal and neural foramen are patent. L3-L4: Disc desiccation with minimal height loss. No significant disc pathology is identified. The s bree canal and neural foramen are patent. Mild bilateral facet arthropathy with posterior left facet joint subcentimeter synovial cyst. L4-L5: Disc desiccation with minimal height loss. No significant disc pathology is identified. The s bree canal is patent. Advanced bilateral facet arthropathy with posterior right facet joint subcenti meter synovial cyst. Smaller posterior left facet joint synovial cyst. No significant neural foramina l stenosis. L5-S1: The intervertebral disc appears round on its contour posteriorly without significant mass eff ect upon the thecal sac. Facet joints are enlarged. Neural canals do remain patent. Other significant findings: None. IMPRESSION: 1. No definitive evidence for disc herniation or significant spinal canal stenosis. 2. Mild multilevel disc degeneration with associated osteoarthritic changes of the lower lumbar spin e as described above. Most prominent at L4-L5 with advanced facet arthropathy. [facility], , 01/21/2025 11:14 AM
== END | disposition home or self-care (01) ==
LOC: RADMRIMAIN 09:53
PROVIDERS: ATTEND Orthopaedic Surgery
DX: M51.360 Other intervertebral disc degeneration, lumbar region with discogenic back pain only (principal); M40.56 Lordosis, unspecified, lumbar region; M47.816 Spondylosis without myelopathy or radiculopathy, lumbar region
CPT/HCPCS: 72148